=== PATIENT | female | born 1980 | race Caucasian/White ===

== ENCOUNTER 2018-02-28 10:06 | Observation (INO) | payer OTHER ==
[2018-02-28] MEDS ORDERED: IBUPROFEN 600 MG TAB PO STA (10:22)
[2018-02-28] MEDS ORDERED: ACETAMINOPHEN TAB 500 MG TAB PO STA (10:22)
--- NOTE | 2018-02-28 10:22 | ED ---
Extremity Problem HPI - General Chief complaint: Extremity Problem,Nontraumatic Stated complaint: right leg pain Time Seen by Provider: 02/28/18 10:11 Source: patient, RN notes reviewed, old records reviewed Mode of arrival: wheelchair Limitations: no limitations - History of Present Illness Initial comments: Patient is a 37-year-old female presents emergency department today fevers chills and right leg pain. She reports her pain feels similar to when she had cellulitis only before. She reports that she has pain in the groin rating down the entire leg. She reports that she's not had any Motrin or Tylenol or anything for pain relief. Patient states that she does have some mild lower back pain. Patient states that she was told that it is likely comfortable infection over her toes. She denies any new cuts or breaks in the skin. No falls. - Related Data Home Medications Medication Instructions Recorded Confirmed No Known Home Medications 05/29/16 05/30/16 Allergies Allergy/AdvReac Type Severity Reaction Status Date / Time No Known Allergies Allergy Verified 02/28/18 10:10 Review of Systems ROS Statement: Those systems with pertinent positive or pertinent negative responses have been documented in the HPI. ROS Other: All systems not noted in ROS Statement are negative. Past Medical History Past Medical History: Cancer, Skin Disorder Additional Past Medical History / Comment(s): migraines, hoarse voice and diff swallowing-recent choking, dry skin on foot, hx cellulitis, anemia, hx cervical cancer History of Any Multi-Drug Resistant Organisms: None Reported Past Surgical History: Section, Orthopedic Surgery Additional Past Surgical History / Comment(s): LEEP procedure, left knee arthroscopy, oral surgery Past Anesthesia/Blood Transfusion Reactions: Previous Problems w/ Anesthesia Additional Past Anesthesia/Blood Transfusion Reaction / Comment(s): spinal anesthesia for C/S-"stopped breathing/paralyzed lungs" Past Psychological History: No Psychological Hx Reported Smoking Status: Current some day smoker Past Alcohol Use History: None Reported Past Drug Use History: None Reported - Past Family History Father Family Medical History: Diabetes Mellitus, Hypertension Mother Family Medical History: No Reported History General Exam - General Exam Comments Initial Comments: Physical 37-year-old female. Alert and oriented. No acute distress. General: Well appearing, well nourished, in no distress. Oriented x 3, normal mood and affect . Ambulating without difficulty. Skin: Good turgor, no rash, unusual bruising or prominent lesions Hair: Normal texture and distribution. HEENT: Head: Normocephalic, atraumatic, no visible or palpable masses, depressions, or scaring. Eyes: Visual acuity intact, conjunctiva clear, sclera non-icteric, EOM intact, PERRL. Ears: EACs clear, TMs translucent & cone of light visualized. hearing intact. Nose: No external lesions, mucosa non-inflamed, septum and turbinates normal Mouth: Mucous membranes moist, no mucosal lesions. Teeth/Gums: No obvious caries or periodontal disease. No gingival inflammation or significant resorption. Pharynx: Mucosa non-inflamed, no tonsillar hypertrophy or exudate Neck: Supple, without lesions, bruits, or adenopathy, thyroid non-enlarged and non-tender Heart: No cardiomegaly or thrills; regular rate and rhythm, no murmur or gallop Lungs: Clear to auscultation and percussion Abdomen: Bowel sounds normal, no tenderness, organomegaly, masses, or hernia Back: Spine normal without deformity or tenderness, no CVA tenderness Extremities: No amputations or deformities. Patient reports pain over the right lower extremity. Patient is tender over the right hip, but she is tender over the entire leg. Full range of motion noted of the toes ankle and knee. Mild erythema over the lateral aspect of the harper. Pulses are normal bilaterally. Neurovascularly intact. Musculoskeletal: Normal gait and station. No misalignment, asymmetry, crepitation, defects, tenderness, masses, effusions, decreased range of motion, instability, atrophy or abnormal strength or tone in the head, neck, spine, ribs , pelvis or extremities. Neurologic: CN 2-12 normal. Sensation to pain, touch, and proprioception normal. DTRs normal in upper and lower extremities. No pathologic reflexes. Psychiatric: Oriented X3, intact recent and remote memory, judgment and insight , normal mood and affect. Limitations: no limitations Course Vital Signs 02/28/18 02/28/18 10:07 11:44 Temperature 99.2 F Pulse Rate 100 92 Respiratory 24 18 Rate Blood Pressure 126/85 106/56 O2 Sat by Pulse 100 98 Oximetry Medical Decision Making - Medical Decision Making 37-year-old female with history of cellulitis on her right leg. She presents today with severe pain over the right leg. Some mild erythema over the lateral aspect of the calf. Ultrasound was negative for DVT. No strain or falls no trauma. She has full range of motion of the leg which she does report pain. Patient to arrive with a low-grade temperature of 100.0. Her lab work shows an elevated CRP and ESR. White blood cell count is within normal limits. Dr. Munoz , pulse was examined the Patient. At this time I'll put the Patient on Ancef. Admitted for right leg cellulitis over the right calf. With pain control and IV fluids. - Lab Data Result diagrams: 02/28/18 10:42 02/28/18 10:42 Lab Results 02/28/18 02/28/18 02/28/18 Range/Units 10:42 10:42 10:42 WBC 8.7 (3.8-10.6) k/uL RBC 4.32 (3.80-5.40) m/uL Hgb 13.9 (11.4-16.0) gm/dL Hct 40.5 (34.0-46.0) % MCV 93.6 (80.0-100.0) fL MCH 32.2 (25.0-35.0) pg MCHC 34.4 (31.0-37.0) g/dL RDW 13.1 (11.5-15.5) % Plt Count 289 (150-450) k/uL Neutrophils % 86 % Lymphocytes % 7 % Monocytes % 5 % Eosinophils % 0 % Basophils % 0 % Neutrophils # 7.5 (1.3-7.7) k/uL Lymphocytes # 0.6 L (1.0-4.8) k/uL Monocytes # 0.4 (0-1.0) k/uL Eosinophils # 0.0 (0-0.7) k/uL Basophils # 0.0 (0-0.2) k/uL ESR 38 H (0-20) mm/hr PT 9.7 (9.0-12.0) sec INR 1.0 (<1.2) APTT 20.9 L (22.0-30.0) sec Sodium 139 (137-145) mmol/L Potassium 3.5 (3.5-5.1) mmol/L Chloride 105 (98-107) mmol/L Carbon Dioxide 21 L (22-30) mmol/L Anion Gap 13 mmol/L BUN 10 (7-17) mg/dL Creatinine 0.80 (0.52-1.04) mg/dL Est GFR (CKD-EPI)AfAm >90 (>60 ml/min/1.73 sqM) Est GFR (CKD-EPI)NonAf >90 (>60 ml/min/1.73 sqM) Glucose 100 H (74-99) mg/dL Calcium 9.1 (8.4-10.2) mg/dL Total Bilirubin 0.6 (0.2-1.3) mg/dL AST 21 (14-36) U/L ALT 25 (9-52) U/L Alkaline Phosphatase 75 (38-126) U/L C-Reactive Protein 181.4 H (<10.0) mg/L Total Protein 6.8 (6.3-8.2) g/dL Albumin 4.2 (3.5-5.0) g/dL - Radiology Data Radiology results: report reviewed Ultrasound is negative for any DVT. Disposition Clinical Impression: Cellulitis of right leg Disposition: HOME SELF-CARE Condition: Good Is patient prescribed a controlled substance at d/c from ED?: No When asked, does pt state using other controlled substances?: No If prescribed controlled substance>3 days was MAPS reviewed?: No If opioid is for acute pain is fill amount 7 days or less?: No If Rx opioid, was Start Talking consent form obtained?: No Referrals: Duncan Jefferson MD [Primary Care Provider] - 1-2 days Time of Disposition: 13:13
[2018-02-28] MEDS ORDERED: MORPHINE SULFATE 2 MG/ML SYRINGE IVP STA (10:24)
[2018-02-28] MEDS ORDERED: KETOROLAC 30 MG/ML 1 ML VIAL IVP STA (10:24)
[2018-02-28 10:56] LABS: Basophils % (A) 0 %; Eosinophils % (A) 0 %; HCT 40.5 % (34.0-46.0); HGB 13.9 gm/dL (11.4-16.0); Lymphocytes # (A) 0.6 k/uL (1.0-4.8); Lymphocytes % (A) 7 %; MCH 32.2 pg (25.0-35.0); MCHC 34.4 g/dL (31.0-37.0); MCV 93.6 fL (80.0-100.0); Mean Platelet Volume 6.8; Monocytes # (A) 0.4 k/uL (0-1.0); Monocytes % (A) 5 %; Neutrophils # (A) 7.5 k/uL (1.3-7.7); Neutrophils % (A) 86 %; Platelet Count 289 k/uL (150-450); RBC 4.32 m/uL (3.80-5.40); RDW 13.1 % (11.5-15.5); WBC 8.7 k/uL (3.8-10.6)
[2018-02-28] MEDS: SODIUM CHLORIDE 0.9% 500 ML IV SCH ×2 (11:00→11:01)
[2018-02-28 11:06] LABS: Prothrombin Time 9.7 sec (9.0-12.0)
[2018-02-28 11:10] LABS: ALT 25 U/L (9-52); AST 21 U/L (14-36); Albumin 4.2 g/dL (3.5-5.0); Alkaline Phosphatase 75 U/L (38-126); Anion Gap 13 mmol/L; Blood Urea Nitrogen 10 mg/dL (7-17); Calcium 9.1 mg/dL (8.4-10.2); Carbon Dioxide 21 mmol/L (22-30); Chloride 105 mmol/L (98-107); Glucose 100 mg/dL (74-99); Potassium 3.5 mmol/L (3.5-5.1); Sodium 139 mmol/L (137-145); Total Bilirubin 0.6 mg/dL (0.2-1.3); Total Protein 6.8 g/dL (6.3-8.2)
[2018-02-28 11:22] LABS: C Reactive Protein 181.4 mg/L (<10.0)
[2018-02-28 11:29] LABS: Partial Thromboplastin Time 20.9 sec (22.0-30.0)
[2018-02-28 11:52] LABS: Erythrocyte Sedimentation Rate 38 mm/hr (0-20)
--- NOTE | 2018-02-28 11:54 | US ---
EXAMINATION TYPE: US venous doppler duplex LE RT DATE OF EXAM: 02/28/2018 11:35 AM COMPARISON: NONE CLINICAL HISTORY: Pain. SIDE PERFORMED: Right TECHNIQUE: The lower extremity deep venous system is examined utilizing real time linear array sonog halle with graded compression, doppler sonography and color-flow sonography. VESSELS IMAGED: External Iliac Vein (EIV) Common Femoral Vein Deep Femoral Vein Greater Saphenous Vein * Femoral Vein Popliteal Vein Small Saphenous Vein * Proximal Calf Veins (* superficial vessels) Grayscale, color Doppler, spectral Doppler imaging performed of the deep veins of the right lower ext remity. Normal color flow, spectral waveform, compressibility noted of the deep veins of the right lo wer extremity. Right Leg: Negative for DVT IMPRESSION: No evident deep venous arthrosis at or above the right knee
[2018-02-28] MEDS ORDERED: LORazepam 0.5 MG TAB PO PRN (13:13)
[2018-02-28] MEDS ORDERED: IBUPROFEN 400 MG TAB PO PRN (13:13)
[2018-02-28] MEDS ORDERED: ACETAMINOPHEN TAB 325 MG TAB PO PRN (13:13)
[2018-02-28] MEDS ORDERED: ONDANSETRON 4 MG/2 ML VIAL IVP PRN (13:13)
[2018-02-28] MEDS ORDERED: NALOXONE 0.4 MG/ML 1 ML VIAL IV PRN (13:13)
[2018-02-28] MEDS ORDERED: KETOROLAC 30 MG/ML 1 ML VIAL IVP PRN (13:13)
[2018-02-28] MEDS ORDERED: ceFAZolin 2,000 MG in DEXTROSE/WATER 1 50ML.BAG IVPB STA (13:15)
[2018-02-28] MEDS ORDERED: ceFAZolin IN SWFI 2 GM/20 ML SYRINGE IVP ONE (13:30)
[2018-02-28 13:35] LABS: Appearance,Urine Clear (Clear); Bacteria,Urine Rare /hpf; Bilirubin,Urine Negative (Negative); Blood,Urine Small (Negative); Color,Urine Colorless; Glucose,Urine (UA) Negative (Negative); Ketones,Urine 1+ (Negative); Leukocyte Esterase,Urine Negative (Negative); Mucus,Urine Rare /hpf; Nitrite,Urine Negative (Negative); Protein,Urine Negative (Negative); RBC,Urine 2 /hpf (0-5); Specific Gravity,Urine 1.003 (1.001-1.035); Squamous Epithelial Cell,Urine 1 /hpf (0-4); Urobilinogen,Urine <2.0 mg/dL (<2.0); WBC,Urine <1 /hpf (0-5)
[2018-02-28 14:35] VITALS: RESP 16
[2018-02-28 15:41] VITALS: BMI 28.0
[2018-02-28] MEDS: SODIUM CHLORIDE 0.9% 1,000 ML IV SCH (15:54)
[2018-02-28] MEDS: MORPHINE SULFATE 2 MG/ML SYRINGE IV PRN ×2 (15:54→20:17)
--- NOTE | 2018-02-28 16:57 | P.HPIM ---
History of Present Illness Patient was an 37-year-old female came in with compensative for redness in the right leg fever chills has been going on since last . Patient is negative for DVT in the right leg. Patient although redness in the right leg is not significant patient does have significant lymphangitic streaking, never had any history of MRSA in the past. Patient does have interdigital, toe skin breakdown and possible fungal infection which is probably the nidus of her cellulitis. We'll consult infectious disease regarding local wound care for interdigital skin breakdown. Patient will be started on ceftezole and. With the GI prophylaxis and DVT prophylaxis. Patient had fever at home. Review of Systems REVIEW OF SYSTEMS: CONSTITUTIONAL: no malaise, no fatigue. HEENT: No recent visual problems or hearing problems. Denied any sore throat. CARDIOVASCULAR: No chest pain, orthopnea, PND, no palpitations, no syncope. PULMONARY: No shortness of breath, no cough, no hemoptysis. GASTROINTESTINAL: No diarrhea, no nausea, no vomiting, no abdominal pain. Normoactive bowel sounds. NEUROLOGICAL: No headaches, no weakness, no numbness. HEMATOLOGICAL: Denies any bleeding or petechiae. GENITOURINARY: Denies any burning micturition, frequency, or urgency. MUSCULOSKELETAL/RHEUMATOLOGICAL: Denies any joint pain, swelling, or any muscle pain. ENDOCRINE: Denies any polyuria or polydipsia. The rest of the 14-point review of systems is negative. Past Medical History Past Medical History: Cancer, Skin Disorder Additional Past Medical History / Comment(s): migraines, hoarse voice and diff swallowing-recent choking, dry skin on foot, hx cellulitis, anemia, hx cervical cancer History of Any Multi-Drug Resistant Organisms: None Reported Past Surgical History: Section, Orthopedic Surgery Additional Past Surgical History / Comment(s): LEEP procedure, left knee arthroscopy, oral surgery Past Anesthesia/Blood Transfusion Reactions: Previous Problems w/ Anesthesia Additional Past Anesthesia/Blood Transfusion Reaction / Comment(s): spinal anesthesia for C/S-"stopped breathing/paralyzed lungs" Past Psychological History: No Psychological Hx Reported Smoking Status: Current some day smoker Past Alcohol Use History: None Reported Additional Past Alcohol Use History / Comment(s): occ smoking Past Drug Use History: None Reported - Past Family History Father Family Medical History: Diabetes Mellitus, Hypertension Mother Family Medical History: No Reported History Medications and Allergies Home Medications Medication Instructions Recorded Confirmed Type Ibuprofen [Motrin Ib] 200 mg PO Q6H PRN 02/28/18 02/28/18 History Allergies Allergy/AdvReac Type Severity Reaction Status Date / Time No Known Allergies Allergy Verified 02/28/18 13:39 Physical Exam Vitals: Vital Signs Temp Pulse Resp BP Pulse Ox 02/28/18 14:35 98.6 F 88 16 111/59 99 02/28/18 13:27 98.6 F 85 18 112/59 99 02/28/18 11:44 92 18 106/56 98 02/28/18 10:07 99.2 F 100 24 126/85 100 Intake and Output 02/28/18 02/28/18 02/28/18 06:59 14:59 22:59 Other: Weight 63.503 kg 65 kg PHYSICAL EXAMINATION: GENERAL: The patient is alert and oriented x3, not in any acute distress. Well developed, well nourished. HEENT: Pupils are round and equally reacting to light. EOMI. No scleral icterus. No conjunctival pallor. Normocephalic, atraumatic. No pharyngeal erythema. No thyromegaly. CARDIOVASCULAR: S1 and S2 present. No murmurs, rubs, or gallops. PULMONARY: Chest is clear to auscultation, no wheezing or crackles. ABDOMEN: Soft, nontender, nondistended, normoactive bowel sounds. No palpable organomegaly. MUSCULOSKELETAL: No joint swelling or deformity. EXTREMITIES: No cyanosis, clubbing, or pedal edema. NEUROLOGICAL: Gross neurological examination did not reveal any focal deficits. SKIN: As mentioned in HPI Results CBC & Chem 7: 02/28/18 10:42 02/28/18 10:42 Labs: Abnormal Lab Results - Last 24 Hours (Table) 02/28/18 02/28/18 02/28/18 Range/Units 10:42 10:42 10:42 Lymphocytes # 0.6 L (1.0-4.8) k/uL ESR 38 H (0-20) mm/hr APTT 20.9 L (22.0-30.0) sec Carbon Dioxide 21 L (22-30) mmol/L Glucose 100 H (74-99) mg/dL C-Reactive Protein 181.4 H (<10.0) mg/L Urine Ketones (Negative) Urine Blood (Negative) Urine Bacteria (None) /hpf Urine Mucus (None) /hpf 02/28/18 Range/Units 13:04 Lymphocytes # (1.0-4.8) k/uL ESR (0-20) mm/hr APTT (22.0-30.0) sec Carbon Dioxide (22-30) mmol/L Glucose (74-99) mg/dL C-Reactive Protein (<10.0) mg/L Urine Ketones 1+ H (Negative) Urine Blood Small H (Negative) Urine Bacteria Rare H (None) /hpf Urine Mucus Rare H (None) /hpf Thrombosis Risk Factor Assmnt - Choose All That Apply Any of the Below Risk Factors Present?: No Other Risk Factors: No Other congenital or acquired thrombophilia - If yes, enter type in comment: No Thrombosis Risk Factor Assessment Level: Very Low Risk Assessment and Plan Plan: -Cellulitis of the right lower extremity: Most probably streptococcal in nature patient was started on ceftezole and IV fluids will be continued. Repeat CBC tomorrow. -Interdigital fungal infection: Local wound care as per infectious disease -Ruled out DVT -Nicotine abuse: Counseling was provided.
[2018-02-28] MEDS: ceFAZolin 1,000 MG in DEXTROSE/WATER 1 50ML.BAG IVPB SCH ×2 (17:50→23:27)
[2018-02-28] MEDS: Acetaminophen-Codeine 300-30mg TAB PO PRN ×2 (17:54→23:30)
[2018-02-28] MEDS: FAMOTIDINE 20 MG TAB PO SCH (20:18)
[2018-02-28] MEDS ORDERED: diphenhydrAMINE 25 MG CAP PO STA (22:59)
[2018-02-28] MEDS: HEPARIN SODIUM,PORCINE 5,000 UNIT/ML 1 ML VIAL SQ SCH (23:27)
[2018-03-01] MEDS: Acetaminophen-Codeine 300-30mg TAB PO PRN (04:58)
[2018-03-01] MEDS: SODIUM CHLORIDE 0.9% 1,000 ML IV SCH ×2 (05:01→12:21)
[2018-03-01] MEDS: ceFAZolin 1,000 MG in DEXTROSE/WATER 1 50ML.BAG IVPB SCH ×2 (05:28→12:20)
[2018-03-01 05:56] VITALS: BP 92/57; PULSE 80; TEMP 97.9
[2018-03-01 08:12] LABS: HCT 30.9 % (34.0-46.0); MCH 31.6 pg (25.0-35.0); MCHC 32.8 g/dL (31.0-37.0); MCV 96.3 fL (80.0-100.0); Mean Platelet Volume 7.7; Platelet Count 213 k/uL (150-450); RBC 3.21 m/uL (3.80-5.40); RDW 13.2 % (11.5-15.5); WBC 4.6 k/uL (3.8-10.6)
[2018-03-01] MEDS: FAMOTIDINE 20 MG TAB PO SCH (08:12)
[2018-03-01] MEDS: HEPARIN SODIUM,PORCINE 5,000 UNIT/ML 1 ML VIAL SQ SCH (08:12)
[2018-03-01 08:19] LABS: HGB 10.1 gm/dL (11.4-16.0)
[2018-03-01 08:23] LABS: Anion Gap 7 mmol/L; Blood Urea Nitrogen 7 mg/dL (7-17); Carbon Dioxide 23 mmol/L (22-30); Chloride 112 mmol/L (98-107); Glucose 86 mg/dL (74-99); Potassium 3.6 mmol/L (3.5-5.1); Sodium 142 mmol/L (137-145)
[2018-03-01] MEDS ORDERED: PANTOPRAZOLE 40 MG/10 ML VIAL IV SCH (09:00)
--- NOTE | 2018-03-01 11:29 | P.DS ---
Providers Date of admission: 02/28/18 13:30 Attending physician: Lisa Linda Consults: 02/28/18 16:47 Consult Physician Routine Consulting Provider: Austin Coles Reason/Comments: Cellulitis and interdigital (toe) infection Do you want consulting provider notified?: Yes Primary care physician: Li Song Lds Hospital Course: 31-year-old admitted with right lower limb cellulitis. Patient has significant improvement in symptoms on ceftezole and patient will be discharged on Keflex for a week. Awaiting Dr. Coles recommendations regarding interdigital fungal infection of the right leg toes. Once a valid by infectious disease patient will be discharged on Keflex. PHYSICAL EXAMINATION: GENERAL: The patient is alert and oriented x3, not in any acute distress. Well developed, well nourished. HEENT: Pupils are round and equally reacting to light. EOMI. No scleral icterus. No conjunctival pallor. Normocephalic, atraumatic. No pharyngeal erythema. No thyromegaly. CARDIOVASCULAR: S1 and S2 present. No murmurs, rubs, or gallops. PULMONARY: Chest is clear to auscultation, no wheezing or crackles. ABDOMEN: Soft, nontender, nondistended, normoactive bowel sounds. No palpable organomegaly. MUSCULOSKELETAL: No joint swelling or deformity. EXTREMITIES: No cyanosis, clubbing, or pedal edema. NEUROLOGICAL: Gross neurological examination did not reveal any focal deficits. SKIN: Redness in the right leg signify failure improved patient does have interdigital fungal infection. Assessment and Plan Plan: -Cellulitis of the right lower extremity: Most probably streptococcal in nature -Interdigital fungal infection: Local wound care as per infectious disease -Ruled out DVT -Nicotine abuse: Counseling was provided. Patient Condition at Discharge: Good Plan - Discharge Summary New Discharge Prescriptions: New Cephalexin [Keflex] 500 mg PO Q8HR #21 cap No Action Ibuprofen [Motrin Ib] 200 mg PO Q6H PRN PRN Reason: Pain Discharge Medication List Ibuprofen [Motrin Ib] 200 mg PO Q6H PRN 02/28/18 [History] Cephalexin [Keflex] 500 mg PO Q8HR #21 cap 03/01/18 [Rx] Follow up Appointment(s)/Referral(s): Duncan Jefferson MD [Primary Care Provider] - 3 Days Discharge Disposition: HOME SELF-CARE
[2018-03-01] MEDS ORDERED: FLUCONAZOLE 150 MG TAB PO SCH (15:22)
--- NOTE | 2018-03-01 15:28 | P.CONS ---
History of Present Illness - Reason for Consult Consult date: 03/01/18 - History of Present Illness 29-year-old female known to infectious disease service now for her fifth episode of cellulitis the right lower extremity. She relates that the ages 16 she had her first episode. He does continue to have intermittent bouts of this. Is a chronic skin condition thought to be either eczema or psoriasis that then becomes secondarily fungally infected. His this occurs she then develops the significant cellulitis and ascending lymphangitis. At home she had onset of significant pain and swelling to the limb and because of her history she presented to Hospital and was admitted for further intervention. At this time fortunately she started to show improvement already. The case is discussed with with the hospitalist. Patient is currently with much improved symptoms. She is having no high-grade fever chills or rigors. Pain is improved. She believes that she would be able to take oral antibiotic therapy. Review of Systems HEENT:Denies headache or acute visual change. Denies sinus or mouth discomforts. Denies neck stiffness or pain. Denies significant oral cavity pain. Denies difficulty on swallowing. Lungs: Denies significant shortness of breath, cough, sputum production, or hemoptysis. Cardiovascular: Denies significant shortness of breath, chest pain, chest wall pain, orthopnea, dyspnea on exertion, syncope Gastrointestinal:Denies nausea, vomiting, diarrhea, constipation, hematemesis, melena, hematochezia. No no significant change of bowel habit noticed. Musculoskeletal: denies significant myalgias or arthralgias. No new joint swelling. Denies new back pain. Skin: Chronic rash right foot at the lateral surface of the toes Neuro: Denies headache or visual change. Denies any new onset weakness or difficulty with ambulation. Denies falls or seizures. Psychiatric:Denies anxiety or depression. Endocrine: Denies significant fatigue, denies significant weight loss or weight gain. Past Medical History Past Medical History: Cancer, Skin Disorder Additional Past Medical History / Comment(s): migraines, hoarse voice and diff swallowing-recent choking, dry skin on foot, hx cellulitis, anemia, hx cervical cancer History of Any Multi-Drug Resistant Organisms: None Reported Past Surgical History: Section, Orthopedic Surgery Additional Past Surgical History / Comment(s): LEEP procedure, left knee arthroscopy, oral surgery Past Anesthesia/Blood Transfusion Reactions: Previous Problems w/ Anesthesia Additional Past Anesthesia/Blood Transfusion Reaction / Comm: spinal anesthesia for C/S-"stopped breathing/paralyzed lungs" Past Psychological History: No Psychological Hx Reported Additional Psychological History / Comment(s): She has been a smoker on and off for 20 years. She denies any medical marijuana, marijuana, street drug use. She denies any alcohol use. She lives at home with family members and her children. There are no pets in the home. She has had no recent travel. Past Drug Use History: None Reported Smoking Status: Current some day smoker Past Alcohol Use History: None Reported Additional Past Alcohol Use History / Comment(s): occ smoking Past Drug Use History: None Reported - Past Family History Father Family Medical History: Diabetes Mellitus, Hypertension Mother Family Medical History: No Reported History Medications and Allergies Home Medications and Allergies Comment(s): Please see the medication list. Home Medications Medication Instructions Recorded Confirmed Type Ibuprofen [Motrin Ib] 200 mg PO Q6H PRN 02/28/18 02/28/18 History Cephalexin [Keflex] 500 mg PO Q8HR #21 cap 03/01/18 Rx Allergies Allergy/AdvReac Type Severity Reaction Status Date / Time No Known Allergies Allergy Verified 02/28/18 13:39 Physical Exam Vitals: Vital Signs Temp Pulse Resp BP Pulse Ox 03/01/18 05:00 97.9 F 80 16 92/57 93 L 02/28/18 22:33 99 F 76 16 101/66 98 02/28/18 15:35 98.0 F 70 16 98/64 97 Intake and Output 03/01/18 03/01/18 03/01/18 06:59 14:59 22:59 Intake Total 1000 1110 Balance 1000 1110 Intake: Intake, IV Titration 1000 1110 Amount Sodium Chloride 0.9% 1, 900 960 000 ml @ 120 mls/hr IV . Q8H20M ANNEL Rx#:[id number] ceFAZolin 1,000 mg In 100 150 Dextrose/Water 1 50ml.bag @ 100 mls/hr IVPB Q6HR ANNEL Rx#:[id number] Other: Voiding Method Toilet # Voids 2 Pleasant 29-year-old woman who is not in acute distress. HEENT: Anicteric conjunctiva are pink and moist nasal mucosa grossly intact without significant lesions, there is no thrush. Neck: The neck is supple without significant lymphadenopathy or thyromegaly. Lungs: Good bilateral air entry without significant crackles or wheezing. There is no significant bronchial sounds. There is no egophony or dullness. Heart: Regular rate and rhythm with an audible S1-S2, no S3 no S4. There is no significant murmur click or rub, PMI was nondisplaced. Abdomen: Positive bowel sounds soft and nontender without palpable masses or organomegaly. There was no guarding or rebound. Extremities: The upper extremities have excellent pulses they are symmetric, no significant petechiae or telangiectasia. No splinter hemorrhages were noted. The left lower extremity has no evidence of any edema. The right lower extremity has evidence of some minimal edema to the distal aspect of the right foot which is evidence of the significant dryness and fungal process possibly superimposed on the chronic eczema-type condition. There is no expressible purulence. It is minimally tender. There is minimal erythema to the site. There is no ascending lymphangitis. There is no tenderness in the right inguinal area and no lymphadenopathy is noted in the right inguinal area and no other abnormal lymph nodes are noted at this time. Neuro: Awake alert oriented to person place and time. There are no acute new gross focal sensory motor deficits. Results CBC & Chem 7: 03/01/18 08:02 03/01/18 08:02 Labs: Abnormal Lab Results - Last 24 Hours (Table) 03/01/18 03/01/18 Range/Units 08:02 08:02 RBC 3.21 L (3.80-5.40) m/uL Hgb 10.1 L D (11.4-16.0) gm/dL Hct 30.9 L (34.0-46.0) % Chloride 112 H (98-107) mmol/L Calcium 7.0 L (8.4-10.2) mg/dL Microbiology - Last 24 Hours (Table) 02/28/18 10:42 Blood Culture - Preliminary Blood No Growth after 24 hours 02/28/18 13:04 Urine Culture - Preliminary Urine,Clean Catch Laboratory Results WBC 4.6 k/uL (3.8-10.6) 03/01/18 08:02 RBC 3.21 m/uL (3.80-5.40) L 03/01/18 08:02 Hgb 10.1 gm/dL (11.4-16.0) L D 03/01/18 08:02 Hct 30.9 % (34.0-46.0) L 03/01/18 08:02 MCV 96.3 fL (80.0-100.0) 03/01/18 08:02 MCH 31.6 pg (25.0-35.0) 03/01/18 08:02 MCHC 32.8 g/dL (31.0-37.0) 03/01/18 08:02 RDW 13.2 % (11.5-15.5) 03/01/18 08:02 Plt Count 213 k/uL (150-450) 03/01/18 08:02 Neutrophils % 86 % 02/28/18 10:42 Lymphocytes % 7 % 02/28/18 10:42 Monocytes % 5 % 02/28/18 10:42 Eosinophils % 0 % 02/28/18 10:42 Basophils % 0 % 02/28/18 10:42 Neutrophils # 7.5 k/uL (1.3-7.7) 02/28/18 10:42 Lymphocytes # 0.6 k/uL (1.0-4.8) L 02/28/18 10:42 Monocytes # 0.4 k/uL (0-1.0) 02/28/18 10:42 Eosinophils # 0.0 k/uL (0-0.7) 02/28/18 10:42 Basophils # 0.0 k/uL (0-0.2) 02/28/18 10:42 ESR 38 mm/hr (0-20) H 02/28/18 10:42 PT 9.7 sec (9.0-12.0) 02/28/18 10:42 INR 1.0 (<1.2) 02/28/18 10:42 APTT 20.9 sec (22.0-30.0) L 02/28/18 10:42 Sodium 142 mmol/L (137-145) 03/01/18 08:02 Potassium 3.6 mmol/L (3.5-5.1) 03/01/18 08:02 Chloride 112 mmol/L (98-107) H 03/01/18 08:02 Carbon Dioxide 23 mmol/L (22-30) 03/01/18 08:02 Anion Gap 7 mmol/L 03/01/18 08:02 BUN 7 mg/dL (7-17) 03/01/18 08:02 Creatinine 0.74 mg/dL (0.52-1.04) 03/01/18 08:02 Est GFR (CKD-EPI)AfAm >90 (>60 ml/min/1.73 sqM) 03/01/18 08:02 Est GFR (CKD-EPI)NonAf >90 (>60 ml/min/1.73 sqM) 03/01/18 08:02 Glucose 86 mg/dL (74-99) 03/01/18 08:02 Plasma Lactic Acid Félix 1.1 mmol/L (0.7-2.0) 02/28/18 10:42 Calcium 7.0 mg/dL (8.4-10.2) L 03/01/18 08:02 Total Bilirubin 0.6 mg/dL (0.2-1.3) 02/28/18 10:42 AST 21 U/L (14-36) 02/28/18 10:42 ALT 25 U/L (9-52) 02/28/18 10:42 Alkaline Phosphatase 75 U/L (38-126) 02/28/18 10:42 C-Reactive Protein 181.4 mg/L (<10.0) H 02/28/18 10:42 Total Protein 6.8 g/dL (6.3-8.2) 02/28/18 10:42 Albumin 4.2 g/dL (3.5-5.0) 02/28/18 10:42 Urine Color Colorless 02/28/18 13:04 Urine Appearance Clear (Clear) 02/28/18 13:04 Urine pH 6.0 (5.0-8.0) 02/28/18 13:04 Ur Specific [place] 1.003 (1.001-1.035) 02/28/18 13:04 Urine Protein Negative (Negative) 02/28/18 13:04 Urine Glucose (UA) Negative (Negative) 02/28/18 13:04 Urine Ketones 1+ (Negative) H 02/28/18 13:04 Urine Blood Small (Negative) H 02/28/18 13:04 Urine Nitrite Negative (Negative) 02/28/18 13:04 Urine Bilirubin Negative (Negative) 02/28/18 13:04 Urine Urobilinogen <2.0 mg/dL (<2.0) 02/28/18 13:04 Ur Leukocyte Esterase Negative (Negative) 02/28/18 13:04 Urine RBC 2 /hpf (0-5) 02/28/18 13:04 Urine WBC <1 /hpf (0-5) 02/28/18 13:04 Ur Squamous Epith Cells 1 /hpf (0-4) 02/28/18 13:04 Urine Bacteria Rare /hpf (None) H 02/28/18 13:04 Urine Mucus Rare /hpf (None) H 02/28/18 13:04 Microbiology 02/28/18 10:42 Blood Blood Culture - Preliminary No Growth after 24 hours 02/28/18 13:04 Urine,Clean Catch Urine Culture - Preliminary Assessment and Plan (1) Cellulitis of right leg Narrative/Plan: 37-year-old woman who has a history of recurrent cellulitis of right lower extremity possibly in the basis of the chronic skin condition that causes skin breakdown, secondary fungal infection and then the invasive bacterial infection. At this time the episode is quite mild compared to the one from 4 years ago. She is doing well on current antibiotic therapy. He was discharged home on oral Keflex, but also placed on some oral Diflucan for short period of time to more effectively deal with the secondary fungal infection. Topical antifungal can also be applied for some powders from [id number]. His been 4 years since her last episode does appear to have better control of this issue. Hopefully she'll keep the area bit more dry and prevent further secondary infections. Status: Acute Code(s): L03.115 - CELLULITIS OF RIGHT LOWER LIMB SNOMED Code( s): 814226105
== END 2018-03-01 15:00 | disposition home or self-care (01) ==
LOC: EC 10:06 → 5MS5E 13:30
PROVIDERS: ADMIT Internal Medicine; ATTEND Internal Medicine
DX: L03.115 Cellulitis of right lower limb (principal); B35.3 Tinea pedis; M54.5 Low back pain; L98.9 Disorder of the skin and subcutaneous tissue, unspecified; R49.0 Dysphonia; G43.909 Migraine, unspecified, not intractable, without status migrainosus; D64.9 Anemia, unspecified; F17.200 Nicotine dependence, unspecified, uncomplicated; Z85.41 Personal history of malignant neoplasm of cervix uteri; Z83.3 Family history of diabetes mellitus; Z82.49 Family history of ischemic heart disease and other diseases of the circulatory system
CPT/HCPCS: 99285 ×2; 96375 ×5; 96361 ×2; 96376 ×2; 96365; 96372 ×2; 36415; 80053; 80048; 85652; 83605; 85025; 85027; 85610; 85730; 86140; 81001; 87040; 87086; 93971; G0378 ×2; J1644 ×2; J1885 ×2; J2270; J0690 ×3; C9113

== ENCOUNTER 2018-08-15 16:02 | Inpatient (IN) | payer OTHER ==
[2018-08-15] MEDS ORDERED: ACETAMINOPHEN TAB 500 MG TAB PO STA ×2 (16:42→21:42)
[2018-08-15] MEDS ORDERED: HYDROmorphone 1 MG/ML 1 ML SYRINGE IM STA (16:46)
[2018-08-15] MEDS ORDERED: METOCLOPRAMIDE 5 MG/ML 2 ML VIAL IVP STA (16:48)
[2018-08-15 16:55] LABS: Appearance,Urine Clear (Clear); Bilirubin,Urine Negative (Negative); Blood,Urine Moderate (Negative); Color,Urine Yellow; Glucose,Urine (UA) Negative (Negative); Ketones,Urine Negative (Negative); Leukocyte Esterase,Urine Negative (Negative); Mucus,Urine Rare /hpf; Nitrite,Urine Negative (Negative); PH, Urine 6.5 (5.0-8.0); Protein,Urine Negative (Negative); RBC,Urine 32 /hpf (0-5); Specific Gravity,Urine 1.013 (1.001-1.035); Squamous Epithelial Cell,Urine 1 /hpf (0-4); Urobilinogen,Urine <2.0 mg/dL (<2.0); WBC,Urine 1 /hpf (0-5)
[2018-08-15] MEDS: SODIUM CHLORIDE 0.9% 500 ML 500 ML IV SCH ×2 (16:57→17:57)
[2018-08-15 17:38] LABS: Basophils % (A) 0 %; Eosinophils # (A) 0.1 k/uL (0-0.7); Eosinophils % (A) 1 %; HCT 43.9 % (34.0-46.0); HGB 14.3 gm/dL (11.4-16.0); Lymphocytes # (A) 0.2 k/uL (1.0-4.8); Lymphocytes % (A) 2 %; MCH 31.8 pg (25.0-35.0); MCHC 32.6 g/dL (31.0-37.0); MCV 97.4 fL (80.0-100.0); Monocytes # (A) 0.2 k/uL (0-1.0); Monocytes % (A) 2 %; Neutrophils # (A) 12.7 k/uL (1.3-7.7); Neutrophils % (A) 96 %; Platelet Count 268 k/uL (150-450); RBC 4.51 m/uL (3.80-5.40); RDW 13.2 % (11.5-15.5); WBC 13.2 k/uL (3.8-10.6)
[2018-08-15 17:46] LABS: ALT 25 U/L (9-52); AST 30 U/L (14-36); Albumin 4.2 g/dL (3.5-5.0); Alkaline Phosphatase 67 U/L (38-126); Anion Gap 14 mmol/L; Blood Urea Nitrogen 12 mg/dL (7-17); Calcium 9.9 mg/dL (8.4-10.2); Carbon Dioxide 21 mmol/L (22-30); Chloride 106 mmol/L (98-107); Glucose 94 mg/dL (74-99); Potassium 4.2 mmol/L (3.5-5.1); Sodium 141 mmol/L (137-145); Total Bilirubin 0.6 mg/dL (0.2-1.3); Total Protein 7.1 g/dL (6.3-8.2)
--- NOTE | 2018-08-15 17:51 | XR ---
EXAMINATION TYPE: XR chest 2V DATE OF EXAM: 08/15/2018 COMPARISON: 03/17/2014 HISTORY: Chest pain TECHNIQUE: Frontal and lateral views of the chest are obtained. FINDINGS: Heart and mediastinum are normal. Lungs are clear. Diaphragm is normal. Bony thorax appear s normal. There are chest leads. IMPRESSION: Normal chest. No change.
--- NOTE | 2018-08-15 17:51 | ED ---
General Adult HPI - General Chief complaint: Fever Stated complaint: Leg pain Time Seen by Provider: 08/15/18 16:35 Source: patient, RN notes reviewed, old records reviewed Mode of arrival: ambulatory Limitations: no limitations - History of Present Illness Initial comments: Chief complaint and history of present illness is a 38-year-old female presents emergency room with acute onset of painful cellulitis to the right lower extremity. Patient reports this to be the seventh time she's had this happen. She's been admitted in the past and treated on Cefzil. Patient presents with a fever of 101.3. She was given IV fluids sepsis workup started immediately. Review of past admissions finds the patient probable strep secondary to fungal infections which are interdigital to her feet. - Related Data Home Medications Medication Instructions Recorded Confirmed Ibuprofen [Motrin Ib] 200 mg PO Q6H PRN 02/28/18 02/28/18 Previous Rx's Medication Instructions Recorded Cephalexin [Keflex] 500 mg PO Q8HR #21 cap 03/01/18 Fluconazole 200 mg PO DAILY #5 tab 03/01/18 Allergies Allergy/AdvReac Type Severity Reaction Status Date / Time No Known Allergies Allergy Verified 08/15/18 16:08 Review of Systems ROS Statement: Those systems with pertinent positive or pertinent negative responses have been documented in the HPI. Review of systems. The patient has chronic migraine type headaches. Denies any stiff neck. Chest pain or shortness of breath. Has discomfort and patches of redness which are warm tender and hot on her right lower extremity. She reports is typical of the cellulitis episode she's had multiple times in the past. No nausea no vomiting no diarrhea. No neuro deficits. All systems reviewed. Past medical problems significant for cervical cancer, skin disorder in the form of repeated cellulitis mostly starting on her right leg. Thought to be caused by an infection that starts in the web of her feet with chronic skin breakdown and fungal infections. Patient also has chronic migraines. The patient's past surgical history and LEEP procedure. Family history noncontributory. Patient has no ALLERGIES. Continues to smoke encouraged to stop denies alcohol use. ROS Other: All systems not noted in ROS Statement are negative. Past Medical History Past Medical History: Cancer, Skin Disorder Additional Past Medical History / Comment(s): migraines, hoarse voice and diff swallowing-recent choking, dry skin on foot, hx cellulitis, anemia, hx cervical cancer History of Any Multi-Drug Resistant Organisms: None Reported Past Surgical History: Section, Orthopedic Surgery Additional Past Surgical History / Comment(s): LEEP procedure, left knee arthroscopy, oral surgery Past Anesthesia/Blood Transfusion Reactions: Previous Problems w/ Anesthesia Additional Past Anesthesia/Blood Transfusion Reaction / Comment(s): spinal anesthesia for C/S-"stopped breathing/paralyzed lungs" Past Psychological History: No Psychological Hx Reported Smoking Status: Current some day smoker Past Alcohol Use History: None Reported Past Drug Use History: None Reported - Past Family History Father Family Medical History: Diabetes Mellitus, Hypertension Mother Family Medical History: No Reported History General Exam - General Exam Comments Initial Comments: General: The patient is awake and alert, complains of fever that started today with aches and pains to her right lower extremity. Vital signs shows temperature 101.3 pulse 138 over story rate 20 pulse ox on 2 L. Blood pressure 128/81. Eye: Pupils are equal, round and reactive to light, extra-ocular movements are intact ; there is normal conjunctiva bilaterally. No signs of icterus. Ears, nose, mouth and throat: There are moist mucous membranes and no oral lesions. Neck: The neck is supple, there is no tenderness no anterior cervical lymphadenopathy , thyroid not enlarged. Cardiovascular: Tachycardic heart rate, no murmur.. Respiratory: Lungs are clear to auscultation, respirations are non-labored, breath sounds are equal. No wheezes, stridor, rales, or rhonchi. Gastrointestinal: Soft, non-distended, non-tender abdomen without masses or organomegaly noted. There is no rebound or guarding present. No CVA tenderness. Bowel sounds are unremarkable. Back: There is no tenderness to palpation in the midline. There is no obvious deformity. No rashes noted. Musculoskeletal: Interdigital breakdown of skin between the toes on the right foot. Chronic fungal infection. Mild tenderness to the right inguinal area. Patches, palm-sized of tender, hot mildly edematous areas of cellulitis on the dorsal surface of the right foot on the anterior surface of her right lower leg. And complains discomfort in the right groin area. Neurological: No neuro deficits Skin: Cellulitis as described above Psychiatric: Cooperative, Limitations: no limitations Course Vital Signs 08/15/18 08/15/18 16:06 18:00 Temperature 101.3 F H 104.5 F H Pulse Rate 138 H 133 H Respiratory 20 22 Rate Blood Pressure 128/81 112/65 O2 Sat by Pulse 100 97 Oximetry Medical Decision Making - Medical Decision Making Medical decision making; is a 38-year-old female who has had recurrent cellulitic infections in her right leg multiple times with the past several years. The patient was evaluated by infectious disease on a previous admission. She was treated with Cefzil with good results. It appears as though the infection normally starts from interdigital toe infections initially fungal in nature. Today's patient presents with again breakdown of skin between the toes. With areas of hot tender mildly edematous areas of cellulitis around her right leg with right groin discomfort. Fever of 101. Patient was started on IV fluids and IV antibiotics after the patient had her labs and blood cultures drawn. The patient's white count is 13 hemoglobin 14 hematocrit of 42 with potassium 4.2. Urine shows 32 reds. Patient is not complaining of any emergency urgency or dysuria and no flank pain at this time. The patient BUN is 12 creatinine 0.84 the GFR 88. Plasma lactic acid elevated at 4.8. The patient receiving 2 L of IV fluid. She received by mouth Tylenol for fever. Within the hour the patient reports she is feeling better. Again the patient was started on IV antibiotics. Patient's feeling better. Case discussed with Matthew. Patient will be admitted to Dr. Ambrose. With consultation from infectious disease, Dr. Coles. - Lab Data Result diagrams: 08/15/18 16:32 08/15/18 16:32 Lab Results 08/15/18 08/15/18 08/15/18 Range/Units 16:12 16:32 16:32 WBC 13.2 H (3.8-10.6) k/uL RBC 4.51 (3.80-5.40) m/uL Hgb 14.3 (11.4-16.0) gm/dL Hct 43.9 (34.0-46.0) % MCV 97.4 (80.0-100.0) fL MCH 31.8 (25.0-35.0) pg MCHC 32.6 (31.0-37.0) g/dL RDW 13.2 (11.5-15.5) % Plt Count 268 (150-450) k/uL Neutrophils % 96 % Lymphocytes % 2 % Monocytes % 2 % Eosinophils % 1 % Basophils % 0 % Neutrophils # 12.7 H (1.3-7.7) k/uL Lymphocytes # 0.2 L (1.0-4.8) k/uL Monocytes # 0.2 (0-1.0) k/uL Eosinophils # 0.1 (0-0.7) k/uL Basophils # 0.0 (0-0.2) k/uL PT (9.0-12.0) sec INR (<1.2) APTT (22.0-30.0) sec Sodium 141 (137-145) mmol/L Potassium 4.2 (3.5-5.1) mmol/L Chloride 106 (98-107) mmol/L Carbon Dioxide 21 L (22-30) mmol/L Anion Gap 14 mmol/L BUN 12 (7-17) mg/dL Creatinine 0.84 (0.52-1.04) mg/dL Est GFR (CKD-EPI)AfAm >90 (>60 ml/min/1.73 sqM) Est GFR (CKD-EPI)NonAf 88 (>60 ml/min/1.73 sqM) Glucose 94 (74-99) mg/dL Plasma Lactic Acid Félix (0.7-2.0) mmol/L Calcium 9.9 (8.4-10.2) mg/dL Total Bilirubin 0.6 (0.2-1.3) mg/dL AST 30 (14-36) U/L ALT 25 (9-52) U/L Alkaline Phosphatase 67 (38-126) U/L Total Protein 7.1 (6.3-8.2) g/dL Albumin 4.2 (3.5-5.0) g/dL Urine Color Yellow Urine Appearance Clear (Clear) Urine pH 6.5 (5.0-8.0) Ur Specific [place] 1.013 (1.001-1.035) Urine Protein Negative (Negative) Urine Glucose (UA) Negative (Negative) Urine Ketones Negative (Negative) Urine Blood Moderate H (Negative) Urine Nitrite Negative (Negative) Urine Bilirubin Negative (Negative) Urine Urobilinogen <2.0 (<2.0) mg/dL Ur Leukocyte Esterase Negative (Negative) Urine RBC 32 H (0-5) /hpf Urine WBC 1 (0-5) /hpf Ur Squamous Epith Cells 1 (0-4) /hpf Urine Mucus Rare H (None) /hpf 08/15/18 08/15/18 Range/Units 16:32 16:32 WBC (3.8-10.6) k/uL RBC (3.80-5.40) m/uL Hgb (11.4-16.0) gm/dL Hct (34.0-46.0) % MCV (80.0-100.0) fL MCH (25.0-35.0) pg MCHC (31.0-37.0) g/dL RDW (11.5-15.5) % Plt Count (150-450) k/uL Neutrophils % % Lymphocytes % % Monocytes % % Eosinophils % % Basophils % % Neutrophils # (1.3-7.7) k/uL Lymphocytes # (1.0-4.8) k/uL Monocytes # (0-1.0) k/uL Eosinophils # (0-0.7) k/uL Basophils # (0-0.2) k/uL PT 9.7 (9.0-12.0) sec INR 0.9 (<1.2) APTT 19.0 L (22.0-30.0) sec Sodium (137-145) mmol/L Potassium (3.5-5.1) mmol/L Chloride (98-107) mmol/L Carbon Dioxide (22-30) mmol/L Anion Gap mmol/L BUN (7-17) mg/dL Creatinine (0.52-1.04) mg/dL Est GFR (CKD-EPI)AfAm (>60 ml/min/1.73 sqM) Est GFR (CKD-EPI)NonAf (>60 ml/min/1.73 sqM) Glucose (74-99) mg/dL Plasma Lactic Acid Félix 4.8 H* (0.7-2.0) mmol/L Calcium (8.4-10.2) mg/dL Total Bilirubin (0.2-1.3) mg/dL AST (14-36) U/L ALT (9-52) U/L Alkaline Phosphatase (38-126) U/L Total Protein (6.3-8.2) g/dL Albumin (3.5-5.0) g/dL Urine Color Urine Appearance (Clear) Urine pH (5.0-8.0) Ur Specific [place] (1.001-1.035) Urine Protein (Negative) Urine Glucose (UA) (Negative) Urine Ketones (Negative) Urine Blood (Negative) Urine Nitrite (Negative) Urine Bilirubin (Negative) Urine Urobilinogen (<2.0) mg/dL Ur Leukocyte Esterase (Negative) Urine RBC (0-5) /hpf Urine WBC (0-5) /hpf Ur Squamous Epith Cells (0-4) /hpf Urine Mucus (None) /hpf Disposition Clinical Impression: Cellulitis of right leg Disposition: ADMITTED IP TO THIS HOSP Condition: Serious Is patient prescribed a controlled substance at d/c from ED?: No Referrals: Duncan Jefferson MD [Primary Care Provider] - 1-2 days
[2018-08-15 18:03] LABS: INR 0.9 (<1.2); Prothrombin Time 9.7 sec (9.0-12.0)
[2018-08-15] MEDS ORDERED: ceFAZolin IN SWFI 2 GM/20 ML SYRINGE IVP ONE (18:15)
[2018-08-15] MEDS ORDERED: IBUPROFEN 600 MG TAB PO STA (18:22)
[2018-08-15] MEDS ORDERED: NALOXONE 0.4 MG/ML 1 ML VIAL IV PRN (19:12)
[2018-08-15] MEDS: SODIUM CHLORIDE 0.9% 1,000 ML IV SCH (19:35)
[2018-08-15] MEDS ORDERED: VANCOMYCIN IV PER PHARMACY 1 EACH MISC MISCELLANE PRN (19:47)
[2018-08-15] MEDS ORDERED: VANCOMYCIN 1,500 MG in SODIUM CHLORIDE 0.9% 250 ML IVPB STA (20:00)
[2018-08-15] MEDS ORDERED: SODIUM CHLORIDE 0.9% 500 ML IV ONE (20:08)
[2018-08-15] MEDS ORDERED: SODIUM CHLORIDE 0.9% 1,000 ML IV ONE (20:08)
[2018-08-15] MEDS ORDERED: CEFEPIME 2 GM in SODIUM CHLORIDE 0.9% 50 ML IVPB STA (20:54)
[2018-08-15] MEDS ORDERED: ceFAZolin 2,000 MG in DEXTROSE/WATER 1 50ML.BAG IVPB SCH (22:00)
[2018-08-15] MEDS ORDERED: SODIUM CHLORIDE 0.9% 500 ML 500 ML IV ONE (23:39)
[2018-08-16 00:40] LABS: Glucose,Whole Blood 109 mg/dL (75-99)
[2018-08-16 04:51] LABS: Basophils % (A) 0 %; Eosinophils % (A) 0 %; HCT 34.7 % (34.0-46.0); Lymphocytes # (A) 0.1 k/uL (1.0-4.8); Lymphocytes % (A) 1 %; MCH 31.8 pg (25.0-35.0); MCHC 32.2 g/dL (31.0-37.0); MCV 98.9 fL (80.0-100.0); Mean Platelet Volume 6.8; Monocytes # (A) 0.1 k/uL (0-1.0); Monocytes % (A) 1 %; Neutrophils # (A) 11.6 k/uL (1.3-7.7); Neutrophils % (A) 98 %; Platelet Count 256 k/uL (150-450); RBC 3.51 m/uL (3.80-5.40); RDW 13.6 % (11.5-15.5); WBC 11.9 k/uL (3.8-10.6)
[2018-08-16] MEDS ORDERED: SODIUM CHLORIDE 0.9% IVPB SCH (05:00)
[2018-08-16] MEDS ORDERED: CEFEPIME IVPB SCH (05:00)
[2018-08-16 05:05] LABS: ALT 26 U/L (9-52); AST 16 U/L (14-36); Albumin 2.3 g/dL (3.5-5.0); Alkaline Phosphatase 34 U/L (38-126); Anion Gap 3 mmol/L; Blood Urea Nitrogen 12 mg/dL (7-17); Carbon Dioxide 20 mmol/L (22-30); Chloride 116 mmol/L (98-107); Glucose 91 mg/dL (74-99); Potassium 3.9 mmol/L (3.5-5.1); Sodium 139 mmol/L (137-145); Total Bilirubin 0.6 mg/dL (0.2-1.3); Total Protein 4.5 g/dL (6.3-8.2)
[2018-08-16 05:10] VITALS: BMI 28.8
[2018-08-16 05:39] LABS: HGB 11.2 gm/dL (11.4-16.0)
[2018-08-16] MEDS: SODIUM CHLORIDE 0.9% 1,000 ML IV SCH ×3 (05:54→20:08)
--- NOTE | 2018-08-16 06:31 | XR ---
EXAMINATION TYPE: XR chest 1V portable DATE OF EXAM: 08/16/2018 HISTORY: ICU Management. REFERENCE: Previous study dated 08/15/2018. FINDINGS: There is developing bibasilar airspace disease. This may represent atelectasis or pneumonia . The heart is mildly prominent. I could not exclude scant effusions. IMPRESSION: WORSENING APPEARANCE TO THE CHEST WITH BIBASILAR AIRSPACE DISEASE, MILD CARDIOMEGALY AND QUESTIONABLE , SMALL, BILATERAL EFFUSIONS.
[2018-08-16] MEDS ORDERED: Potassium Replacement Protocol 1 EACH MISC MISCELLANE PRN ×2 (07:12→20:20)
[2018-08-16] MEDS ORDERED: VANCOMYCIN 1,250 MG in SODIUM CHLORIDE 0.9% 250 ML IVPB SCH (08:00)
[2018-08-16] MEDS ORDERED: POTASSIUM CHLORIDE ER 20 MEQ TAB.ER PO SCH ×2 (08:00→21:00)
[2018-08-16] MEDS: ACETAMINOPHEN TAB 325 MG TAB PO PRN ×2 (08:42→20:06)
[2018-08-16] MEDS: FLUCONAZOLE 100 MG TAB PO SCH (08:43)
[2018-08-16] MEDS: HEPARIN SODIUM,PORCINE 5,000 UNIT/ML 1 ML VIAL SQ SCH ×2 (08:52→20:50)
[2018-08-16] MEDS: PANTOPRAZOLE 40 MG/10 ML VIAL IV SCH (08:52)
[2018-08-16] MEDS: IBUPROFEN 400 MG TAB PO PRN ×2 (09:41→20:07)
[2018-08-16] MEDS: cefTRIAXone 2,000 MG in SODIUM CHLORIDE 0.9% 100 ML IVPB SCH (10:29)
[2018-08-16] MEDS ORDERED: VANCOMYCIN IV PER PHARMACY 1 EACH MISC MISCELLANE PRN (13:24)
--- NOTE | 2018-08-16 14:32 | P.CNPUL ---
History of Present Illness Consult date: 08/16/18 Reason for consult: other (Acute sepsis) Chief complaint: Right leg swelling and pain History of present illness: This is a 38-year-old female with history of chronic cellulitis involving the right lower extremity. History of sepsis and bacteremia secondary to Streptococcus. pyogenes, history of chronic cellulitis and possible fungal infection of the interdigital area of toes. History of multiple medical problems including migraine cephalgia, cervical cancer, GERD, hoarse voice, and sometimes difficulty swallowing. Patient presented to the ER last night with mostly symptoms of one day history of right lower extremity pain, swelling, tenderness, and fever as high as 101.3. Clearly upon presentation the patient was septic she had elevated lactic acid, she was hypotensive, had leukocytosis, initial lactic acid was 4.8. Patient received 3 L of fluid boluses, finally responded to fluid boluses, did not require placement on norepinephrine. I was made aware of this patient last night, and recommended admission to the ICU. I did recommend vancomycin, initially she was given in addition to vancomycin and cefepime, however I switch her today to a Rocephin after reviewing the previous microbiology on this patient from the last admission. Patient was seen in the past by Dr. Coles, and she had a similar presentation not too long ago. Her last evaluation by Dr. Coles was on 03/01/2018. According to his note, the patient had multiple evaluations in the past for cellulitis involving the right lower extremity. At her initial episode was when she was 16 years old. According to his previous note, the patient had chronic skin condition that causes skin breakdown, and she develops fungal infection, and then she also develops invasive bacterial infection. In the past she has been treated on outpatient basis with Keflex and Diflucan. Review of Systems CONSTITUTIONAL: Fever, fatigue, no weight loss. HEENT: No blurred vision, no dizziness, no sore throat, no difficulty with hearing. CARDIOVASCULAR: No chest pain, orthopnea, PND, no palpitations, no syncope. PULMONARY: No shortness of breath, no cough, no wheezing no chest pain. GASTROINTESTINAL: No nausea no vomiting no abdominal pain no melena no hematemesis NEUROLOGICAL: No headaches, no weakness, no numbness. HEMATOLOGICAL: Denies any bleeding or petechiae. GENITOURINARY: No dysuria and no frequency no urgency no hematuria. MUSCULOSKELETAL/RHEUMATOLOGICAL: Denies any joint pain, swelling, or any muscle pain. ENDOCRINE: Denies any polyuria or polydipsia. Skin: As noted in HPI. Past Medical History Past Medical History: Cancer, Skin Disorder Additional Past Medical History / Comment(s): migraines, hoarse voice and diff swallowing-recent choking, dry skin on foot, hx cellulitis, anemia, hx cervical cancer History of Any Multi-Drug Resistant Organisms: None Reported Past Surgical History: Section, Orthopedic Surgery Additional Past Surgical History / Comment(s): LEEP procedure, left knee arthroscopy, oral surgery Past Anesthesia/Blood Transfusion Reactions: Previous Problems w/ Anesthesia Additional Past Anesthesia/Blood Transfusion Reaction / Comment(s): spinal anesthesia for C/S-"stopped breathing/paralyzed lungs" Past Psychological History: No Psychological Hx Reported Additional Psychological History / Comment(s): She has been a smoker on and off for 20 years. She denies any medical marijuana, marijuana, street drug use. She denies any alcohol use. She lives at home with family members and her children. There are no pets in the home. She has had no recent travel. Past Drug Use History: None Reported Smoking Status: Current some day smoker Past Alcohol Use History: None Reported Additional Past Alcohol Use History / Comment(s): occ smoking Past Drug Use History: None Reported - Past Family History Father Family Medical History: Diabetes Mellitus, Hypertension Mother Family Medical History: No Reported History Medications and Allergies Home Medications Medication Instructions Recorded Confirmed Type No Known Home Medications 08/16/18 08/16/18 History Allergies Allergy/AdvReac Type Severity Reaction Status Date / Time No Known Allergies Allergy Verified 08/16/18 08:58 Physical Exam Vitals: Vital Signs Temp Pulse Resp BP Pulse Ox 08/16/18 11:00 102 H 18 105/63 96 08/16/18 10:00 96 23 105/63 95 08/16/18 09:00 98 14 99/62 98 08/16/18 08:00 99.3 F 96 24 97/62 98 08/16/18 07:00 97 13 95/64 97 08/16/18 06:00 91 14 85/52 98 08/16/18 05:00 91 12 90/54 98 08/16/18 04:00 98.7 F 91 14 92/59 96 08/16/18 03:00 97 17 88/53 96 08/16/18 02:00 98 17 96/61 98 08/16/18 01:00 102 H 15 88/60 97 08/16/18 00:30 98.1 F 14 08/16/18 00:26 99.5 F 103 H 18 96/54 98 08/16/18 00:10 108 H 18 100/53 98 08/16/18 00:00 98.1 F 107 H 27 H 90/69 98 08/15/18 23:41 108 H 18 99/52 98 08/15/18 23:36 99.4 F 107 H 18 99/50 98 08/15/18 23:33 106 H 27 H 145/101 08/15/18 23:31 99.4 F 105 H 18 08/15/18 23:30 105 H 10 L 77/62 98 08/15/18 23:25 106 H 11 L 87/40 18 23:20 108 H 21 72/33 08/15/18 23:15 106 H 10 L 82/50 98 08/15/18 23:10 105 H 8 L 79/45 98 18 23:05 109 H 12 82/40 18 23:00 103 H 12 80/37 98 08/15/18 22:57 100.1 F H 102 H 18 80/37 98 18 22:55 105 H 13 96/46 08/15/18 22:50 107 H 22 89/47 18 22:45 107 H 18 88/47 08/15/18 22:40 107 H 16 92/47 97 08/15/18 22:35 107 H 16 96/50 97 18 22:30 106 H 18 88/45 97 18 22:25 112 H 20 93/48 18 22:20 112 H 17 90/45 18 22:15 112 H 16 95/49 18 22:10 110 H 19 96/50 18 22:05 111 H 22 102/60 08/15/18 22:00 116 H 33 H 88/40 96 08/15/18 21:55 113 H 21 97/49 18 21:50 110 H 18 93/50 12/15/18 21:45 108 H 23 100/44 /15/18 21:40 112 H 25 H 106/41 98 /15/18 21:39 112 H 18 106/41 99 15/18 21:35 116 H 16 99/40 99 15/18 21:30 100.4 F H 112 H 18 101/40 98 15/18 21:25 113 H 20 91/48 98 15/18 21:20 110 H 20 90/48 1518 21:15 112 H 24 91/53 15/18 21:10 115 H 18 86/54 1518 21:05 112 H 16 94/52 15/18 21:00 112 H 17 92/54 18 20:59 99 F 112 H 18 92/54 99 1518 20:55 111 H 12 90/47 18 20:50 112 H 20 112/56 98 08/15/18 20:45 121 H 17 91/57 18 20:40 124 H 22 85/46 98 08/15/18 20:35 117 H 19 87/44 99 08/15/18 20:30 115 H 20 93/46 15/18 20:25 116 H 21 95/46 08/15/18 20:20 123 H 17 93/46 18 20:15 115 H 12 95/44 15/18 20:12 100.8 F H 117 H 18 95/44 99 08/15/18 20:10 116 H 17 100/48 18 20:05 121 H 26 H 81/56 08/15/18 20:00 122 H 19 98/49 99 15/18 19:45 118 H 15 88/44 98 15/18 19:30 126 H 11 L 90/43 15/18 19:29 102.8 F H 128 H 20 90/43 98 15/18 19:15 124 H 7 L 83/46 1518 19:00 135 H 21 102/54 1518 18:45 131 H 13 111/63 15/18 18:30 124 H 12 112/65 1518 18:15 128 H 19 115/52 85 L 12/15/18 18:00 104.5 F H 126 H 17 129/63 97 08/15/18 17:45 124 H 26 H 120/79 08/15/18 17:30 120 H 13 111/72 08/15/18 17:15 120 H 21 118/68 08/15/18 17:00 120 H 12 121/77 08/15/18 16:45 125 H 20 121/77 100 08/15/18 16:30 126 H 17 127/63 08/15/18 16:20 138 H 35 H 08/15/18 16:06 101.3 F H 138 H 20 128/81 100 Intake and Output 08/15/18 08/16/18 08/16/18 22:59 06:59 14:59 Intake Total 5100 600 Output Total 1100 125 200 Balance -1100 4975 400 Intake: IV 5100 500 Sodium Chloride 0.9% 1, 5100 500 000 ml @ 100 mls/hr IV . Q10H ANNEL Rx#:[id number] Oral 100 Output: Urine 1100 125 200 Other: # Voids 0 0 Weight 68.039 kg 67 kg GENERAL: Revealed a 38-year-old female in no distress, very pleasant. HEENT: Pupils are round and equally reacting to light. EOMI. No scleral icterus. No conjunctival pallor. Normocephalic, atraumatic. No pharyngeal erythema. No thyromegaly. CARDIOVASCULAR: S1 and S2 present. No murmurs, rubs, or gallops. PULMONARY: Clear throughout, no crackles or rhonchi or wheezes, no chest wall tenderness. ABDOMEN: Soft, nontender, nondistended, normoactive bowel sounds. No palpable organomegaly. MUSCULOSKELETAL: No joint swelling or deformity. EXTREMITIES: Swelling, erythema, tenderness over the right lower extremity. Palpable distal pulses. NEUROLOGICAL: Gross neurological examination did not reveal any focal deficits. SKIN: Significant breaking of the skin noted in the interdigital area between between the toes. Of the right foot. Psychiatric: Normal mood, affect and mental status examination. Results - Laboratory Findings CBC and BMP: 08/16/18 04:25 08/16/18 04:25 PT/INR, D-dimer PT 9.7 sec (9.0-12.0) 08/15/18 16:32 INR 0.9 (<1.2) 08/15/18 16:32 Abnormal lab findings: Abnormal Labs 08/15/18 08/15/18 08/15/18 16:12 16:32 16:32 WBC 13.2 H RBC Hgb Neutrophils # 12.7 H Lymphocytes # 0.2 L APTT Chloride Carbon Dioxide 21 L POC Glucose (mg/dL) Plasma Lactic Acid Félix Calcium Magnesium Alkaline Phosphatase Total Protein Albumin Urine Blood Moderate H Urine RBC 32 H Urine Mucus Rare H 08/15/18 08/15/18 08/16/18 16:32 16:32 00:38 WBC RBC Hgb Neutrophils # Lymphocytes # APTT 19.0 L Chloride Carbon Dioxide POC Glucose (mg/dL) 109 H Plasma Lactic Acid Félix 4.8 H* Calcium Magnesium Alkaline Phosphatase Total Protein Albumin Urine Blood Urine RBC Urine Mucus 08/16/18 08/16/18 08/16/18 04:25 04:25 04:25 WBC 11.9 H RBC 3.51 L Hgb 11.2 L D Neutrophils # 11.6 H Lymphocytes # 0.1 L APTT Chloride 116 H Carbon Dioxide 20 L POC Glucose (mg/dL) Plasma Lactic Acid Félix Calcium 7.0 L Magnesium 1.3 L Alkaline Phosphatase 34 L Total Protein 4.5 L Albumin 2.3 L Urine Blood Urine RBC Urine Mucus - Diagnostic Findings Chest x-ray: image reviewed (By basilar atelectasis, small tiny pleural effusions noted.) Assessment and Plan Assessment: Impression: 1 acute sepsis secondary to right lower extremity cellulitis, most likely streptococcal in nature, however considering the presentation, patient will be started on vancomycin and Rocephin. Empirically until the final cultures are available. 2 acute bacteremia secondary to Streptococcus.pyogenes group a, the source is the right lower extremity unless for otherwise. 3 acute cellulitis of the right lower extremity 4 interdigital fungal infection, patient was already started on Diflucan, local antifungal's maybe use, however with a fair recommendation to infectious disease on the case. 5 nicotine dependence syndrome, patient was already counseled. 6 history of migraine cephalgia 7 history of GERD. Recommendation: Continue to monitor in the ICU, continue present antibiotics, however looking at previous cultures and previous sensitivities, Rocephin alone could be used hence I will discontinue vancomycin unless felt to be changed again by infectious disease on the case. Patient will be given GI and DVT prophylaxis, we'll continue to follow closely. Continue Diflucan. Will follow. Prognosis is guarded, may consider ordering a venous Doppler on the right lower extremity. If not already done. Time with Patient: Greater than 30
[2018-08-16] MEDS ORDERED: traMADol 50 MG TAB PO STA (14:37)
--- NOTE | 2018-08-16 15:00 | US ---
EXAMINATION TYPE: US venous doppler duplex LE RT DATE OF EXAM: 08/16/2018 2:41 PM COMPARISON: US February 28, 2018 CLINICAL HISTORY: DVT R/O. Right leg pain and swelling x 2 days, patient on blood thinners SIDE PERFORMED: Right TECHNIQUE: The lower extremity deep venous system is examined utilizing real time linear array sonog halle with graded compression, doppler sonography and color-flow sonography. VESSELS IMAGED: External Iliac Vein (EIV) Common Femoral Vein Deep Femoral Vein Greater Saphenous Vein * Femoral Vein Popliteal Vein Small Saphenous Vein * Proximal Calf Veins (* superficial vessels) Compression images not done from EIV through distal femoral vein, patient unable to tolerate transd ucer pressure Right Leg: Visualized portions appear negative for DVT *Right groin: multiple lymph nodes seen with largest measuring 4.1 x 1.3 x 3.9cm. Grayscale, color do ppler, spectral doppler imaging performed of the deep veins of the right lower extremity. There is n ormal flow and vascular waveforms. IMPRESSION: Suboptimal study without convincing evidence of acute DVT. Abnormal right groin lymph no kenneth are noted which are greater than 1 cm on long axis with eccentric cortical thickening, correlate for infection or inflammation. Follow-up ultrasound is advised after medical treatment to document re solution of abnormal adenopathy.
--- NOTE | 2018-08-16 19:35 | HP ---
HISTORY AND PHYSICAL CHIEF COMPLAINTS: Fever and leg pain. HISTORY OF PRESENT ILLNESS: This 38-year-old woman with a past history of migraines, history of section, history of the multiple infections, cellulitis of the leg and also with fungal infection between being followed by Dr. Jefferson in the outpatient setting, previously admitted to [facility] on multiple occasions. Currently the patient is complaining of severe pain in the right leg which is increasing in intensity. Some swelling over the past couple of days, went up to the thigh and the patient became feverish and weak. Patient came to [facility]. Patient found to have hypotension and tachycardia and significant cellulitis of the right leg and patient admitted for further evaluation and treatment. IV fluid bolus was about 3 L given. The patient seen in the ICU. Broad-spectrum IV antibiotics were given. Of note in 2013, grown from the cultures which is again growing from the blood cultures right now and currently. The patient is started on vancomycin and Rocephin at this time. Dr. Stephens, infectious disease following the patient closely. There is no history any headache, loss consciousness, seizures at this time. No chest pain , palpitations, hematochezia or melena. PAST MEDICAL HISTORY: History of fungal infection, skin disorder, migraine, hoarse voice, history of cellulitis and section. MEDICATIONS: Prior to admission home medications are: None. ALLERGIES: None. FAMILY HISTORY: History of diabetes and hypertension in the family. SOCIAL HISTORY: Previous history of smoking on a daily basis. No history of alcohol intake. REVIEW OF SYSTEMS: ENT: No diminished hearing or vision. CARDIOVASCULAR: No angina or palpitations. RESPIRATORY: No cough or hemoptysis. GI: No nausea or vomiting. no dysuria. Nervous system: No numbness or weakness. ALLERGY/IMMUNOLOGY: No asthma or hayfever. MUSCULOSKELETAL: As mentioned earlier. HEMATOLOGY/ONCOLOGY: No history of anemia. ENDOCRINE: No history of diabetes or hypothyroidism. CONSTITUTIONAL: As mentioned earlier. Dermatology: Negative. Rheumatology: Negative. Psychiatry: As mentioned earlier. PHYSICAL EXAMINATION: GENERAL: The patient is alert and oriented times three. VITAL SIGNS: Pulse 96, blood pressure is 105/60, respirations 23, temperature is normal. Pulse ox 94% on room air. HEENT: Conjunctivae normal. Oral mucosa moist. NECK is no jugular venous distention. No carotid bruit. No lymph node enlargement. CARDIOVASCULAR: S1, S2 muffled. RESPIRATORY: Breath sounds diminished in the bases. Scattered rhonchi. No crackles. ABDOMEN: Soft, nontender. No mass. LEGS: Significant swelling and edema, erythema, tenderness of the right leg extending from the ankle all the way up to the thigh. Lymph nodes are not palpable, visible in the ultrasound. There is some erythema also present. Pulses felt normally. Minimal tenderness also present diffusely. CENTRAL NERVOUS SYSTEM: Higher functions as mentioned earlier. Moves all 4 limbs. No focal motor or sensory deficits. LYMPHATICS: No lymph nodes in the neck and axilla. SKIN: No ulcer, rash or bleeding. LABS: WBC 11.2, hemoglobin 11.2. Albumin 2.6. ASSESSMENT: 1. Acute cellulitis of the right leg with severe sepsis and septic shock and hypotension. 2. History of previous multiple sepsis. 3. Fungal infection in the first interdigital cleft. 4. Hypomagnesemia. 5. Increased WBC. 6. History of section. 7. History of recurrent cellulitis on the right side. 8. History of migraine. 9. History of degenerative joint disease. 10.History of nicotine dependence. RECOMMENDATIONS AND DISCUSSION: In this 38-year-old woman who presented with multiple complex medical issues, we will monitor the patient closely. We will initiate broad-spectrum IV antibiotics. The patient is started on Rocephin. Otherwise, the patient also received 1 dose of vancomycin. We will follow closely with Infectious disease as mentioned earlier. The patient has grown step pyogenes group previously. The prognosis guarded because of multiple complex medical issues. Further recommendations to follow. See orders for pain management. Further recommendations to follow. MMODL / IJN: [id number] / MTDD
[2018-08-16] MEDS: CLOTRIMAZOLE 1% CREAM 15 GM TUBE TOPICAL SCH (20:08)
[2018-08-16] MEDS ORDERED: Magnesium Replacement Protocol 1 EACH MISC MISCELLANE PRN (20:22)
[2018-08-16] MEDS: MAGNESIUM SULFATE-D5W PMX 1 GM in DEXTROSE/WATER 1 100ML.BAG IVPB SCH ×3 (20:50→23:27)
[2018-08-16] MEDS: HYDROmorphone 1 MG/ML 1 ML SYRINGE IVP PRN (21:25)
--- NOTE | 2018-08-16 22:03 | P.CONS ---
History of Present Illness - Reason for Consult Consult date: 08/16/18 - Chief Complaint fever - History of Present Illness 38-year-old presents to Hospital with the sudden onset of pain and swelling and discomfort to the right lower extremity. 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 Despite the care she continues to have difficulty does have multiple hospitalizations regarding cellulitis of the right lower extremity. Her last auscultation was much more brief and she was not nearly as ill as she has been in the past. Apparently a few hours before she came to the emergency center she started feeling poorly with evidence of swelling and pain to the right leg. When she started difficulties with ambulation she sought care in the emergency center where she was found to have a temperature of 104, she was with relative hypotension and evidence of acute sepsis. He has in the past she had an extensive cellulitis right lower extremity with an ascending lymphangitis with tenderness to the right inguinal node. She was with relative hypotension requiring fluid resuscitation. With resuscitation and antipyretic she's feeling a bit better today leg is still swollen and quite painful. She has significant lactic acidosis of 4.8 now improved to 1.1. Antibiotic therapy was initiated the cough and emergency center with cefepime and vancomycin pending culture results. Review of Systems Patient still feels quite poorly HEENT:Denies headache or acute visual change. Denies sinus or mouth discomforts. Denies neck stiffness or pain. Denies significant oral cavity pain. Denies difficulty on swallowing. Lungs: Denies significant shortness of breath, cough, sputum production, or hemoptysis. Cardiovascular: Denies significant shortness of breath, chest pain, chest wall pain, orthopnea, dyspnea on exertion, syncope Gastrointestinal:Denies nausea, vomiting, diarrhea, constipation, hematemesis, melena, hematochezia. No no significant change of bowel habit noticed. Musculoskeletal: denies significant myalgias or arthralgias. No new joint swelling. Denies new back pain. Skin: Significant pain swelling redness to the right lower extremity with the chronic changes to the interspaces of the toes of the right foot Neuro: Denies headache or visual change. Denies any new onset weakness or difficulty with ambulation. Denies falls or seizures. Psychiatric:Denies anxiety or depression. Endocrine: Denies significant fatigue, denies significant weight loss or weight gain. Past Medical History Past Medical History: Cancer, Skin Disorder Additional Past Medical History / Comment(s): migraines, hoarse voice and diff swallowing-recent choking, dry skin on foot, hx cellulitis, anemia, hx cervical cancer History of Any Multi-Drug Resistant Organisms: None Reported Past Surgical History: Section, Orthopedic Surgery Additional Past Surgical History / Comment(s): LEEP procedure, left knee arthroscopy, oral surgery Past Anesthesia/Blood Transfusion Reactions: Previous Problems w/ Anesthesia Additional Past Anesthesia/Blood Transfusion Reaction / Comm: spinal anesthesia for C/S-"stopped breathing/paralyzed lungs" Past Psychological History: No Psychological Hx Reported Additional Psychological History / Comment(s): She has been a smoker on and off for 20 years. She denies any medical marijuana, marijuana, street drug use. She denies any alcohol use. She lives at home with family members and her children. There are no pets in the home. She has had no recent travel. Past Drug Use History: None Reported Smoking Status: Current some day smoker Past Alcohol Use History: None Reported Additional Past Alcohol Use History / Comment(s): occ smoking Past Drug Use History: None Reported - Past Family History Father Family Medical History: Diabetes Mellitus, Hypertension Mother Family Medical History: No Reported History Medications and Allergies Home Medications and Allergies Comment(s): Current Medications Acetaminophen (Tylenol Tab) 650 mg PO Q6HR PRN PRN Reason: Mild Pain or Fever > 100.5 Last Admin: 08/16/18 20:06 Dose: 650 mg Clotrimazole (Lotrimin Cream) 1 applic TOPICAL BID ANNEL Last Admin: 08/16/18 20:08 Dose: 1 applic Fluconazole (Diflucan) 200 mg PO DAILY [facility]EL Last Admin: 08/16/18 08:43 Dose: 200 mg Heparin Sodium (Porcine) (Heparin) 5,000 unit SQ Q12HR [facility] Last Admin: 08/16/18 20:50 Dose: 5,000 unit Hydromorphone HCl (Dilaudid) 0.5 mg IVP Q4HR PRN PRN Reason: Pain Last Admin: 08/16/18 21:25 Dose: 0.5 mg Sodium Chloride (Saline 0.9%) 1,000 mls @ 100 mls/hr IV .Q10H [facility]EL Last Admin: 08/16/18 20:08 Dose: 100 mls/hr Ceftriaxone Sodium 2,000 mg/ (Sodium Chloride) 100 mls @ 100 mls/hr IVPB Q24HR [facility] Last Admin: 08/16/18 10:29 Dose: 100 mls/hr Magnesium Sulfate/Dextrose 1 (gm/ IV Solution) 100 mls @ 100 mls/hr IVPB Q1H [facility] Stop: 08/17/18 00:29 Last Admin: 08/16/18 20:50 Dose: 100 mls/hr Ibuprofen (Motrin) 400 mg PO Q6HR PRN PRN Reason: Mild Pain or Fever > 100.5 Last Admin: 08/16/18 20:07 Dose: 400 mg Miscellaneous Information (Potassium Per Protocol) 1 each MISCELLANE DAILY PRN ; Protocol PRN Reason: Per Protocol Miscellaneous Information (Potassium Per Protocol) 1 each MISCELLANE DAILY PRN ; Protocol PRN Reason: Per Protocol Miscellaneous Information (Magnesium Per Protocol) 1 each MISCELLANE DAILY PRN ; Protocol PRN Reason: Per Protocol Naloxone HCl (Narcan) 0.2 mg IV Q2M PRN PRN Reason: Opioid Reversal Pantoprazole Sodium (Protonix) 40 mg IV DAILY [facility] Last Admin: 08/16/18 08:52 Dose: 40 mg Tramadol HCl (Ultram) 50 mg PO QID PRN PRN Reason: MODERATE Pain Home Medications Medication Instructions Recorded Confirmed Type No Known Home Medications 08/16/18 08/16/18 History Allergies Allergy/AdvReac Type Severity Reaction Status Date / Time No Known Allergies Allergy Verified 08/16/18 08:58 Physical Exam Vitals: Vital Signs Temp Pulse Resp BP Pulse Ox 08/16/18 19:00 105 H 25 H 115/65 98 08/16/18 18:00 98 4 L 117/64 92 L 08/16/18 17:00 96 22 114/61 94 L 08/16/18 16:00 90 12 114/65 97 08/16/18 15:00 93 28 H 112/67 97 08/16/18 14:00 96 24 104/61 96 08/16/18 13:00 96 23 109/64 95 08/16/18 12:00 93 20 113/60 93 L 08/16/18 11:00 102 H 18 105/63 96 08/16/18 10:00 96 23 105/63 95 08/16/18 09:00 98 14 99/62 98 08/16/18 08:00 99.3 F 96 24 97/62 98 08/16/18 07:00 97 13 95/64 97 18 06:00 91 14 85/52 98 08/16/18 05:00 91 12 90/54 98 08/16/18 04:00 98.7 F 91 14 92/59 96 08/16/18 03:00 97 17 88/53 96 08/16/18 02:00 98 17 96/61 98 08/16/18 01:00 102 H 15 88/60 97 08/16/18 00:30 98.1 F 14 08/16/18 00:26 99.5 F 103 H 18 96/54 98 08/16/18 00:10 108 H 18 100/53 98 08/16/18 00:00 98.1 F 107 H 27 H 90/69 98 08/15/18 23:41 108 H 18 99/52 98 08/15/18 23:36 99.4 F 107 H 18 99/50 98 08/15/18 23:33 106 H 27 H 145/101 08/15/18 23:31 99.4 F 105 H 18 08/15/18 23:30 105 H 10 L 77/62 98 08/15/18 23:25 106 H 11 L 87/40 18 23:20 108 H 21 72/33 18 23:15 106 H 10 L 82/50 98 08/15/18 23:10 105 H 8 L 79/45 98 08/15/18 23:05 109 H 12 82/40 18 23:00 103 H 12 80/37 98 08/15/18 22:57 100.1 F H 102 H 18 80/37 98 08/15/18 22:55 105 H 13 96/46 08/15/18 22:50 107 H 22 89/47 18 22:45 107 H 18 88/47 18 22:40 107 H 16 92/47 97 08/15/18 22:35 107 H 16 96/50 97 08/15/18 22:30 106 H 18 88/45 97 08/15/18 22:25 112 H 20 93/48 08/15/18 22:20 112 H 17 90/45 08/15/18 22:15 112 H 16 95/49 08/15/18 22:10 110 H 19 96/50 08/15/18 22:05 111 H 22 102/60 08/15/18 22:00 116 H 33 H 88/40 96 08/15/18 21:55 113 H 21 97/49 08/15/18 21:50 110 H 18 93/50 Intake and Output 08/16/18 08/16/18 08/16/18 06:59 14:59 22:59 Intake Total 5100 1250 500 Output Total 125 700 100 Balance 4975 550 400 Intake: IV 5100 800 500 Sodium Chloride 0.9% 1, 5100 800 500 000 ml @ 100 mls/hr IV . Q10H [facility] Rx#:[id number] Intake, IV Titration 350 Amount Vancomycin 1,250 mg In 250 Sodium Chloride 0.9% 250 ml @ 125 mls/hr IVPB Q12H [facility] Rx#:[id number] cefTRIAXone 2,000 mg In 100 Sodium Chloride 0.9% 100 ml @ 100 mls/hr IVPB Q24HR [facility] Rx#:[id number] Oral 100 Output: Urine 125 700 100 Other: # Voids 0 0 1 # Bowel Movements 1 Weight 67 kg Pleasant 38-year-old woman still very uncomfortable due to the pain and swelling of her right leg. Fever has resolved hypotension improved HEENT: Anicteric conjunctiva are pink and moist nasal mucosa grossly intact without significant lesions, there is no thrush. Neck: The neck is supple without significant lymphadenopathy or thyromegaly. Lungs: Good bilateral air entry without significant crackles or wheezing. There is no significant bronchial sounds. There is no egophony or dullness. Heart: Regular rate and rhythm with an audible S1-S2, no S3 no S4. There is no significant murmur click or rub, PMI was nondisplaced. Abdomen: Positive bowel sounds soft and nontender without palpable masses or organomegaly. There was no guarding or rebound. Extremities: The upper extremities have excellent pulses they are symmetric, no significant petechiae or telangiectasia. No splinter hemorrhages were noted. The left lower extremity shows no acute abnormalities or significant edema. Right lower extremities shows evidence of the extensive erythema and edema that goes from the foot all the way to the fold of the thigh. There is swelling in significant discomfort to the right inguinal lymph nodes. No open ulcerations or blisters are seen just a dense erythema that is quite tender. The interspaces show evidence of the thickened white material but does appear to be fungal in nature. Neuro: Awake alert oriented to person place and time. There are no acute new gross focal sensory motor deficits. Results Results: Laboratory Results WBC 11.9 k/uL (3.8-10.6) H 08/16/18 04:25 RBC 3.51 m/uL (3.80-5.40) L 08/16/18 04:25 Hgb 11.2 gm/dL (11.4-16.0) L D 08/16/18 04:25 Hct 34.7 % (34.0-46.0) 08/16/18 04:25 MCV 98.9 fL (80.0-100.0) 08/16/18 04:25 MCH 31.8 pg (25.0-35.0) 08/16/18 04:25 MCHC 32.2 g/dL (31.0-37.0) 08/16/18 04:25 RDW 13.6 % (11.5-15.5) 08/16/18 04:25 Plt Count 256 k/uL (150-450) 08/16/18 04:25 Neutrophils % 98 % 08/16/18 04:25 Lymphocytes % 1 % 08/16/18 04:25 Monocytes % 1 % 08/16/18 04:25 Eosinophils % 0 % 08/16/18 04:25 Basophils % 0 % 08/16/18 04:25 Neutrophils # 11.6 k/uL (1.3-7.7) H 08/16/18 04:25 Lymphocytes # 0.1 k/uL (1.0-4.8) L 08/16/18 04:25 Monocytes # 0.1 k/uL (0-1.0) 08/16/18 04:25 Eosinophils # 0.0 k/uL (0-0.7) 08/16/18 04:25 Basophils # 0.0 k/uL (0-0.2) 08/16/18 04:25 PT 9.7 sec (9.0-12.0) 08/15/18 16:32 INR 0.9 (<1.2) 08/15/18 16:32 APTT 19.0 sec (22.0-30.0) L 08/15/18 16:32 Sodium 139 mmol/L (137-145) 08/16/18 04:25 Potassium 3.9 mmol/L (3.5-5.1) 08/16/18 04:25 Chloride 116 mmol/L (98-107) H 08/16/18 04:25 Carbon Dioxide 20 mmol/L (22-30) L 08/16/18 04:25 Anion Gap 3 mmol/L 08/16/18 04:25 BUN 12 mg/dL (7-17) 08/16/18 04:25 Creatinine 0.73 mg/dL (0.52-1.04) 08/16/18 04:25 Est GFR (CKD-EPI)AfAm >90 (>60 ml/min/1.73 sqM) 08/16/18 04:25 Est GFR (CKD-EPI)NonAf >90 (>60 ml/min/1.73 sqM) 08/16/18 04:25 Glucose 91 mg/dL (74-99) 08/16/18 04:25 POC Glucose (mg/dL) 109 mg/dL (75-99) H 08/16/18 00:38 POC Glu [employer] Worker ID Dale Tellez 08/16/18 00:38 Lactic Ac Sepsis Rflx Y 08/15/18 17:49 Plasma Lactic Acid Félix 1.1 mmol/L (0.7-2.0) 08/15/18 21:35 Calcium 7.0 mg/dL (8.4-10.2) L 08/16/18 04:25 Magnesium 1.3 mg/dL (1.6-2.3) L 08/16/18 04:25 Total Bilirubin 0.6 mg/dL (0.2-1.3) 08/16/18 04:25 AST 16 U/L (14-36) 08/16/18 04:25 ALT 26 U/L (9-52) 08/16/18 04:25 Alkaline Phosphatase 34 U/L (38-126) L 08/16/18 04:25 Total Protein 4.5 g/dL (6.3-8.2) L 08/16/18 04:25 Albumin 2.3 g/dL (3.5-5.0) L 08/16/18 04:25 Urine Color Yellow 08/15/18 16:12 Urine Appearance Clear (Clear) 08/15/18 16:12 Urine pH 6.5 (5.0-8.0) 08/15/18 16:12 Ur Specific [place] 1.013 (1.001-1.035) 08/15/18 16:12 Urine Protein Negative (Negative) 08/15/18 16:12 Urine Glucose (UA) Negative (Negative) 08/15/18 16:12 Urine Ketones Negative (Negative) 08/15/18 16:12 Urine Blood Moderate (Negative) H 08/15/18 16:12 Urine Nitrite Negative (Negative) 08/15/18 16:12 Urine Bilirubin Negative (Negative) 08/15/18 16:12 Urine Urobilinogen <2.0 mg/dL (<2.0) 08/15/18 16:12 Ur Leukocyte Esterase Negative (Negative) 08/15/18 16:12 Urine RBC 32 /hpf (0-5) H 08/15/18 16:12 Urine WBC 1 /hpf (0-5) 08/15/18 16:12 Ur Squamous Epith Cells 1 /hpf (0-4) 08/15/18 16:12 Urine Mucus Rare /hpf (None) H 08/15/18 16:12 CBC & Chem 7: 08/16/18 04:25 08/16/18 04:25 Labs: Abnormal Lab Results - Last 24 Hours (Table) 08/16/18 08/16/18 08/16/18 Range/Units 00:38 04:25 04:25 WBC 11.9 H (3.8-10.6) k/uL RBC 3.51 L (3.80-5.40) m/uL Hgb 11.2 L D (11.4-16.0) gm/dL Neutrophils # 11.6 H (1.3-7.7) k/uL Lymphocytes # 0.1 L (1.0-4.8) k/uL Chloride 116 H (98-107) mmol/L Carbon Dioxide 20 L (22-30) mmol/L POC Glucose (mg/dL) 109 H (75-99) mg/dL Calcium 7.0 L (8.4-10.2) mg/dL Magnesium (1.6-2.3) mg/dL Alkaline Phosphatase 34 L (38-126) U/L Total Protein 4.5 L (6.3-8.2) g/dL Albumin 2.3 L (3.5-5.0) g/dL 08/16/18 Range/Units 04:25 WBC (3.8-10.6) k/uL RBC (3.80-5.40) m/uL Hgb (11.4-16.0) gm/dL Neutrophils # (1.3-7.7) k/uL Lymphocytes # (1.0-4.8) k/uL Chloride (98-107) mmol/L Carbon Dioxide (22-30) mmol/L POC Glucose (mg/dL) (75-99) mg/dL Calcium (8.4-10.2) mg/dL Magnesium 1.3 L (1.6-2.3) mg/dL Alkaline Phosphatase (38-126) U/L Total Protein (6.3-8.2) g/dL Albumin (3.5-5.0) g/dL Microbiology - Last 24 Hours (Table) 08/15/18 16:12 Urine Culture - Final Urine,Clean Catch 08/15/18 16:32 Blood Culture Gram Stain - Preliminary Blood 08/15/18 16:32 Blood Culture Gram Stain - Preliminary Blood Blood Culture - Preliminary Strep pyogenes (grp a) 08/15/18 16:32 Blood Culture - Final Blood Microbiology 08/15/18 16:12 Urine,Clean Catch Urine Culture - Final 08/15/18 16:32 Blood Blood Culture Gram Stain - Preliminary 08/15/18 16:32 Blood Blood Culture Gram Stain - Preliminary 08/15/18 16:32 Blood Blood Culture - Preliminary Strep pyogenes (grp a) 08/15/18 16:32 Blood Blood Culture - Final Assessment and Plan (1) Cellulitis of right leg Narrative/Plan: 38-year-old woman presents to Hospital feeling acutely ill with high-grade fever chills and rigors associated with the significant pain and swelling to the right lower extremity. No new acute lesions or injuries of occurred but she has the chronic abnormality to the skin and interspaces of her toes which appears to be the portal of entry. She is evidence of significant streptococcal sepsis coming from that site with the cellulitis ascending lymphangitis and lymphadenopathy. She has severe sepsis as noted by the elevated lactic acid, and the significant infection to the right leg and bacteremia. Antimicrobial therapy will be tailored as we have further data, she originally had streptococcal infection in the past. We'll de-escalate antibiotic therapy as soon as possible. Follow blood cultures will be requested. She is having relative hypotension and will add in tramadol for some pain control with Tylenol. Elevate the limb while at rest. Topical antifungal therapy will be utilized to the interspace and systemic fluconazole his early been added. Should have further evaluation in the outpatient setting regarding the abnormality to the foot. Current Visit: Yes Status: Acute Code(s): L03.115 - CELLULITIS OF RIGHT LOWER LIMB SNOMED Code(s): 779756301 (2) Acute lymphangitis of right lower extremity Current Visit: Yes Status: Acute Code(s): L03.125 - ACUTE LYMPHANGITIS OF RIGHT LOWER LIMB SNOMED Code(s): 0370461 (3) Sepsis due to Streptococcus pyogenes Current Visit: Yes Status: Acute Code(s): A40.0 - SEPSIS DUE TO STREPTOCOCCUS, GROUP A SNOMED Code(s): 856267400
[2018-08-17] MEDS: MAGNESIUM SULFATE-D5W PMX 1 GM in DEXTROSE/WATER 1 100ML.BAG IVPB SCH (00:33)
[2018-08-17 05:54] LABS: Basophils % (A) 0 %; Eosinophils # (A) 0.1 k/uL (0-0.7); Eosinophils % (A) 1 %; HGB 10.6 gm/dL (11.4-16.0); Lymphocytes # (A) 0.2 k/uL (1.0-4.8); Lymphocytes % (A) 2 %; MCH 32.1 pg (25.0-35.0); MCHC 32.1 g/dL (31.0-37.0); MCV 99.9 fL (80.0-100.0); Mean Platelet Volume 6.5; Monocytes # (A) 0.2 k/uL (0-1.0); Monocytes % (A) 2 %; Neutrophils # (A) 9.7 k/uL (1.3-7.7); Neutrophils % (A) 95 %; Platelet Count 192 k/uL (150-450); RDW 13.7 % (11.5-15.5); WBC 10.3 k/uL (3.8-10.6)
[2018-08-17] MEDS: ACETAMINOPHEN TAB 325 MG TAB PO PRN ×2 (06:07→22:22)
[2018-08-17] MEDS: IBUPROFEN 400 MG TAB PO PRN ×2 (06:08→22:23)
[2018-08-17 06:21] LABS: Anion Gap 4 mmol/L; Blood Urea Nitrogen 13 mg/dL (7-17); Calcium 6.9 mg/dL (8.4-10.2); Carbon Dioxide 18 mmol/L (22-30); Chloride 114 mmol/L (98-107); Glucose 90 mg/dL (74-99); Magnesium 2.8 mg/dL (1.6-2.3); Potassium 3.8 mmol/L (3.5-5.1); Sodium 136 mmol/L (137-145)
[2018-08-17] MEDS ORDERED: Potassium Replacement Protocol 1 EACH MISC MISCELLANE PRN (06:46)
[2018-08-17] MEDS ORDERED: POTASSIUM CHLORIDE ER 20 MEQ TAB.ER PO SCH (07:00)
[2018-08-17] MEDS: traMADol 50 MG TAB PO PRN ×2 (07:09→18:25)
[2018-08-17] MEDS: CLOTRIMAZOLE 1% CREAM 15 GM TUBE TOPICAL SCH ×2 (08:47→22:29)
[2018-08-17] MEDS: HEPARIN SODIUM,PORCINE 5,000 UNIT/ML 1 ML VIAL SQ SCH ×2 (08:47→22:23)
[2018-08-17] MEDS: PANTOPRAZOLE 40 MG/10 ML VIAL IV SCH (08:48)
[2018-08-17] MEDS: HYDROmorphone 1 MG/ML 1 ML SYRINGE IVP PRN (08:48)
[2018-08-17] MEDS: FLUCONAZOLE 100 MG TAB PO SCH (08:49)
[2018-08-17] MEDS ORDERED: FUROSEMIDE 10 MG/ML 4 ML VIAL IV STA (09:03)
--- NOTE | 2018-08-17 09:19 | XR ---
EXAMINATION TYPE: XR chest 1V portable DATE OF EXAM: 08/17/2018 COMPARISON: 08/06/2018 HISTORY: Shortness of breath TECHNIQUE: Single frontal view of the chest is obtained. FINDINGS: Bilateral consolidation and pleural effusion. Heart size stable. Central interstitial isaiah meagan noted. No sizable pneumothorax. IMPRESSION: 1. Progressive bilateral consolidation and pleural effusion. Differential diagnosis includes pneumoni a correlate clinically to exclude underlying CHF.
[2018-08-17] MEDS: cefTRIAXone 2,000 MG in SODIUM CHLORIDE 0.9% 100 ML IVPB SCH (09:51)
--- NOTE | 2018-08-17 10:18 | P.PN ---
Subjective Progress Note Date: 08/17/18 Principal diagnosis: Acute sepsis secondary to right lower extremity cellulitis, with strep a bacteremia This is a 38-year-old female with history of chronic cellulitis involving the right lower extremity. History of sepsis and bacteremia secondary to Streptococcus. pyogenes, history of chronic cellulitis and possible fungal infection of the interdigital area of toes. History of multiple medical problems including migraine cephalgia, cervical cancer, GERD, hoarse voice, and sometimes difficulty swallowing. Patient presented to the ER last night with mostly symptoms of one day history of right lower extremity pain, swelling, tenderness, and fever as high as 101.3. Clearly upon presentation the patient was septic she had elevated lactic acid, she was hypotensive, had leukocytosis, initial lactic acid was 4.8. Patient received 3 L of fluid boluses, finally responded to fluid boluses, did not require placement on norepinephrine. I was made aware of this patient last night, and recommended admission to the ICU. I did recommend vancomycin, initially she was given in addition to vancomycin and cefepime, however I switch her today to a Rocephin after reviewing the previous microbiology on this patient from the last admission. Patient was seen in the past by Dr. Coles, and she had a similar presentation not too long ago. Her last evaluation by Dr. Coles was on 03/01/2018. According to his note, the patient had multiple evaluations in the past for cellulitis involving the right lower extremity. At her initial episode was when she was 16 years old. According to his previous note, the patient had chronic skin condition that causes skin breakdown, and she develops fungal infection, and then she also develops invasive bacterial infection. In the past she has been treated on outpatient basis with Keflex and Diflucan. On 08/17/2018 patient seen in follow-up in the intensive care unit. She is awake and alert, in no acute distress, right lower leg is still quite swollen, tender to touch and warm. Patient is hemodynamically stable, T-max in the last 24 hours was 102.7F. Saturations on 3 L per nasal cannula is 96%, sinus rhythm on the monitor, the controlled rate. Blood cultures showed strep pyogenes in the blood cultures. Patient is currently on a combination of Rocephin and vancomycin. Dopplers of the right lower extremity was negative, and the study was suboptimal he did not show any convincing evidence of acute DVT. There were abnormal right groin lymph nodes noted greater than 1 cm, could be related to infection or inflammation. Today's chest x-ray was reviewed , and shows is consistent with fluid overload, pleural effusions and central vascular congestion. Today's labs have been reviewed, WBCs 10.3, hemoglobin is 10.6, sodium is 136, potassium is 3.8, chloride is 114, CO2 is 18, and BUN was 13 and creatinine 0.73. Objective - Vital Signs Vital signs: Vital Signs Temp 98.8 F 08/17/18 08:00 Pulse 98 08/17/18 08:00 Resp 27 H 08/17/18 08:00 BP 108/57 08/17/18 08:00 Pulse Ox 96 08/17/18 08:00 Intake & Output 08/16/18 08/17/18 08/17/18 18:59 06:59 18:59 Intake Total 1650 1500 100 Output Total 800 660 Balance 850 840 100 Weight 76 kg Intake: IV 1200 1200 100 Sodium Chloride 0.9% 1, 1200 1200 100 000 ml @ 100 mls/hr IV . Q10H [facility] Rx#:[id number] Intake, IV Titration 350 300 Amount Magnesium Sulfate-D5w Pmx 300 1 gm In Dextrose/Water 1 100ml.bag @ 100 mls/hr IVPB Q1H [facility] Rx#: [id number] Vancomycin 1,250 mg In 250 Sodium Chloride 0.9% 250 ml @ 125 mls/hr IVPB Q12H [facility] Rx#:[id number] cefTRIAXone 2,000 mg In 100 Sodium Chloride 0.9% 100 ml @ 100 mls/hr IVPB Q24HR [facility] Rx#:[id number] Oral 100 Output: Urine 800 660 Other: # Voids 1 # Bowel Movements 1 1 - Exam GENERAL: Revealed a 38-year-old female in no distress, very pleasant. HEENT: Pupils are round and equally reacting to light. EOMI. No scleral icterus. No conjunctival pallor. Normocephalic, atraumatic. No pharyngeal erythema. No thyromegaly. CARDIOVASCULAR: S1 and S2 present. No murmurs, rubs, or gallops. PULMONARY: Clear throughout, no crackles or rhonchi or wheezes, no chest wall tenderness. ABDOMEN: Soft, nontender, nondistended, normoactive bowel sounds. No palpable organomegaly. MUSCULOSKELETAL: No joint swelling or deformity. EXTREMITIES: Swelling, erythema, tenderness over the right lower extremity extending from the groin area down to the ankle top of foot. Palpable distal pulses. Patient has nonpitting swelling of the left upper extremity due to IV fluid infiltration NEUROLOGICAL: Gross neurological examination did not reveal any focal deficits. SKIN: Significant breaking of the skin noted in the interdigital area between between the toes. Of the right foot. Psychiatric: Normal mood, affect and mental status examination. - Labs CBC & Chem 7: 08/17/18 04:56 08/17/18 04:56 Labs: Abnormal Lab Results - Last 24 Hours (Table) 08/17/18 08/17/18 Range/Units 04:56 04:56 RBC 3.30 L (3.80-5.40) m/uL Hgb 10.6 L (11.4-16.0) gm/dL Hct 33.0 L (34.0-46.0) % Neutrophils # 9.7 H (1.3-7.7) k/uL Lymphocytes # 0.2 L (1.0-4.8) k/uL Sodium 136 L (137-145) mmol/L Chloride 114 H (98-107) mmol/L Carbon Dioxide 18 L (22-30) mmol/L Calcium 6.9 L (8.4-10.2) mg/dL Magnesium 2.8 H (1.6-2.3) mg/dL Microbiology - Last 24 Hours (Table) 08/15/18 16:32 Blood Culture Gram Stain - Preliminary Blood 08/16/18 19:00 Skin Fungal Culture - Preliminary Skin Scrapings 08/15/18 16:12 Urine Culture - Final Urine,Clean Catch 08/15/18 16:32 Blood Culture Gram Stain - Preliminary Blood Blood Culture - Preliminary Strep pyogenes (grp a) 08/15/18 16:32 Blood Culture - Final Blood Assessment and Plan Plan: 1 acute sepsis secondary to right lower extremity cellulitis, most likely streptococcal in nature, however considering the presentation, patient will be started on vancomycin and Rocephin. Empirically until the final cultures are available. 2 acute bacteremia secondary to Streptococcus.pyogenes group a, the source is the right lower extremity unless for otherwise. 3 acute cellulitis of the right lower extremity 4 interdigital fungal infection, patient was already started on Diflucan, local antifungal's maybe use, however with a fair recommendation to infectious disease on the case. 5 nicotine dependence syndrome, patient was already counseled. 6 history of migraine cephalgia 7 history of GERD. Plan: Antibiotic coverage per ID service. We'll give the patient a dose of 40 mg of Lasix . Today's chest x-ray has been reviewed by Dr. Coyle, shows bilateral pleural effusions, and prominent central vascularity, fluid overload. Discontinue the IV fluids. Hemodynamically patient remains stable, she still has intermittent fevers. ID Service is following. Patient is stable to move out of the intensive care unit today to general medical floor I performed a history & physical examination of the patient and discussed their management with my nurse practitioner, Lily Solano. I reviewed the nurse practitioner's note and agree with the documented findings and plan of care. Lung sounds are clear. The findings and the impression was discussed with the patient. I attest to the documentation by the nurse practitioner. Time with Patient: Less than 30
[2018-08-17] MEDS: ONDANSETRON 4 MG/2 ML VIAL IVP PRN (12:17)
[2018-08-17] MEDS ORDERED: METOCLOPRAMIDE 5 MG/ML 2 ML VIAL IVP PRN (14:29)
[2018-08-17 17:18] LABS: Glucose,Whole Blood 106 mg/dL (75-99)
[2018-08-17] MEDS: HYDROmorphone 0.5 MG/0.5 ML SYRINGE IVP PRN ×2 (18:24→22:23)
[2018-08-18] MEDS: traMADol 50 MG TAB PO PRN ×3 (03:29→17:11)
[2018-08-18 05:29] LABS: Basophils % (A) 0 %; Eosinophils # (A) 0.1 k/uL (0-0.7); Eosinophils % (A) 2 %; HCT 30.7 % (34.0-46.0); Lymphocytes # (A) 0.4 k/uL (1.0-4.8); Lymphocytes % (A) 5 %; MCH 31.9 pg (25.0-35.0); MCHC 32.5 g/dL (31.0-37.0); MCV 98.2 fL (80.0-100.0); Mean Platelet Volume 6.8; Monocytes # (A) 0.2 k/uL (0-1.0); Monocytes % (A) 3 %; Neutrophils # (A) 6.5 k/uL (1.3-7.7); Neutrophils % (A) 88 %; Platelet Count 196 k/uL (150-450); RBC 3.12 m/uL (3.80-5.40); RDW 13.6 % (11.5-15.5); WBC 7.4 k/uL (3.8-10.6)
[2018-08-18 05:43] LABS: Anion Gap 5 mmol/L; Blood Urea Nitrogen 9 mg/dL (7-17); Calcium 7.3 mg/dL (8.4-10.2); Carbon Dioxide 21 mmol/L (22-30); Chloride 109 mmol/L (98-107); Glucose 91 mg/dL (74-99); Magnesium 2.4 mg/dL (1.6-2.3); Potassium 3.5 mmol/L (3.5-5.1); Sodium 135 mmol/L (137-145)
--- NOTE | 2018-08-18 06:26 | P.PN ---
Subjective Progress Note Date: 08/17/18 38-year-old presents to Hospital with the sudden onset of pain and swelling and discomfort to the right lower extremity. 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 Despite the care she continues to have difficulty does have multiple hospitalizations regarding cellulitis of the right lower extremity. Her last auscultation was much more brief and she was not nearly as ill as she has been in the past. Apparently a few hours before she came to the emergency center she started feeling poorly with evidence of swelling and pain to the right leg. When she started difficulties with ambulation she sought care in the emergency center where she was found to have a temperature of 104, she was with relative hypotension and evidence of acute sepsis. He has in the past she had an extensive cellulitis right lower extremity with an ascending lymphangitis with tenderness to the right inguinal node. She was with relative hypotension requiring fluid resuscitation. With resuscitation and antipyretic she's feeling a bit better today leg is still swollen and quite painful. She has significant lactic acidosis of 4.8 now improved to 1.1. Antibiotic therapy was initiated the [facility] and emergency center with cefepime and vancomycin pending culture results. 08/17/2018 patient feels somewhat better today. The intense pain has improved but certainly not resolved. Fevers have improved. Appetite is improving without ongoing nausea or emesis. Objective - Vital Signs Vital signs: Vital Signs Temp 99.0 F 08/18/18 04:00 Pulse 100 08/18/18 04:00 Resp 12 08/18/18 04:00 BP 119/72 08/18/18 04:00 Pulse Ox 96 08/17/18 16:00 Intake & Output 08/17/18 08/17/18 08/18/18 06:59 18:59 06:59 Intake Total 1500 560 120 Output Total 660 1300 300 Balance 840 -740 -180 Weight 76 kg 76 kg Intake: IV 1200 200 0 Sodium Chloride 0.9% 1, 1200 200 0 000 ml @ 100 mls/hr IV . Q10H [facility] Rx#:[id number] Intake, IV Titration 300 160 Amount Magnesium Sulfate-D5w Pmx 300 1 gm In Dextrose/Water 1 100ml.bag @ 100 mls/hr IVPB Q1H [facility] Rx#: [id number] cefTRIAXone 2,000 mg In 160 Sodium Chloride 0.9% 100 ml @ 100 mls/hr IVPB Q24HR [facility] Rx#:[id number] Oral 200 120 Output: Urine 660 1300 300 Other: # Voids 1 1 # Bowel Movements 1 - Constitutional Constitutional Comment(s): Pleasant 38-year-old woman still very uncomfortable due to the pain and swelling of her right leg. Fever has resolved hypotension improved HEENT: Anicteric conjunctiva are pink and moist nasal mucosa grossly intact without significant lesions, there is no thrush. Neck: The neck is supple without significant lymphadenopathy or thyromegaly. Lungs: Good bilateral air entry without significant crackles or wheezing. There is no significant bronchial sounds. There is no egophony or dullness. Heart: Regular rate and rhythm with an audible S1-S2, no S3 no S4. There is no significant murmur click or rub, PMI was nondisplaced. Abdomen: Positive bowel sounds soft and nontender without palpable masses or organomegaly. There was no guarding or rebound. Extremities: The upper extremities have excellent pulses they are symmetric, no significant petechiae or telangiectasia. No splinter hemorrhages were noted. The left lower extremity shows no acute abnormalities or significant edema. Right lower extremities shows evidence of some improvement to the erythema and edema that goes from the foot all the way to the fold of the thigh. There is swelling and some improvement of the severe discomfort to the right inguinal lymph nodes. No open ulcerations or blisters are seen just a dense erythema that is quite tender. The interspaces show evidence of the thickened white material but does appear to be fungal in nature. Neuro: Awake alert oriented to person place and time. There are no acute new gross focal sensory motor deficits. - Labs CBC & Chem 7: 08/18/18 04:49 08/18/18 04:49 Labs: Abnormal Lab Results - Last 24 Hours (Table) 08/17/18 08/17/18 08/18/18 Range/Units 04:56 16:58 04:49 RBC 3.12 L (3.80-5.40) m/uL Hgb 10.0 L (11.4-16.0) gm/dL Hct 30.7 L (34.0-46.0) % Lymphocytes # 0.4 L (1.0-4.8) k/uL Sodium 136 L (137-145) mmol/L Chloride 114 H (98-107) mmol/L Carbon Dioxide 18 L (22-30) mmol/L POC Glucose (mg/dL) 106 H (75-99) mg/dL Calcium 6.9 L (8.4-10.2) mg/dL Magnesium 2.8 H (1.6-2.3) mg/dL 08/18/18 Range/Units 04:49 RBC (3.80-5.40) m/uL Hgb (11.4-16.0) gm/dL Hct (34.0-46.0) % Lymphocytes # (1.0-4.8) k/uL Sodium 135 L (137-145) mmol/L Chloride 109 H (98-107) mmol/L Carbon Dioxide 21 L (22-30) mmol/L POC Glucose (mg/dL) (75-99) mg/dL Calcium 7.3 L (8.4-10.2) mg/dL Magnesium 2.4 H (1.6-2.3) mg/dL Microbiology - Last 24 Hours (Table) 08/16/18 22:25 Blood Culture - Preliminary Blood No Growth after 24 hours 08/15/18 16:32 Blood Culture Gram Stain - Preliminary Blood Blood Culture - Preliminary Strep pyogenes (grp a) Microbiology 08/16/18 22:25 Blood Blood Culture - Preliminary No Growth after 24 hours 08/15/18 16:32 Blood Blood Culture Gram Stain - Preliminary 08/15/18 16:32 Blood Blood Culture - Preliminary Strep pyogenes (grp a) 08/15/18 16:32 Blood Blood Culture Gram Stain - Preliminary 08/16/18 19:00 Skin Scrapings Skin Fungal Culture - Preliminary 08/15/18 16:12 Urine,Clean Catch Urine Culture - Final 08/15/18 16:32 Blood Blood Culture - Final Assessment and Plan (1) Cellulitis of right leg Narrative/Plan: 38-year-old woman presents to Hospital feeling acutely ill with high-grade fever chills and rigors associated with the significant pain and swelling to the right lower extremity. No new acute lesions or injuries of occurred but she has the chronic abnormality to the skin and interspaces of her toes which appears to be the portal of entry. She is evidence of significant streptococcal sepsis coming from that site with the cellulitis ascending lymphangitis and lymphadenopathy. She has severe sepsis as noted by the elevated lactic acid, and the significant infection to the right leg and bacteremia. Antimicrobial therapy will be tailored as we have further data, she originally had streptococcal infection in the past. We'll de-escalate antibiotic therapy as soon as possible. Follow blood cultures will be requested. She is having relative hypotension and will add in tramadol for some pain control with Tylenol. Elevate the limb while at rest. Topical antifungal therapy will be utilized to the interspace and systemic fluconazole his early been added. Should have further evaluation in the outpatient setting regarding the abnormality to the foot. 08/17/2018 patient is having some improvement in the last day. Still very uncomfortable but swelling erythema are improving and the intensity of the pain has lessened. She's no longer having high-grade fevers. There is some improvement and Streptococcus pyogenes is isolated as it has been in the past. Continue antibiotic therapy with ceftriaxone and the antifungal therapy. Pain control is much improved today. Continue elevating the limb she cannot tolerate compression. Current Visit: Yes Status: Acute Code(s): L03.115 - CELLULITIS OF RIGHT LOWER LIMB SNOMED Code(s): 207443561 (2) Acute lymphangitis of right lower extremity Current Visit: Yes Status: Acute Code(s): L03.125 - ACUTE LYMPHANGITIS OF RIGHT LOWER LIMB SNOMED Code(s): 8637250 (3) Sepsis due to Streptococcus pyogenes Current Visit: Yes Status: Acute Code(s): A40.0 - SEPSIS DUE TO STREPTOCOCCUS, GROUP A SNOMED Code(s): 985693515
[2018-08-18] MEDS ORDERED: Potassium Replacement Protocol 1 EACH MISC MISCELLANE PRN (06:53)
[2018-08-18] MEDS: POTASSIUM CHLORIDE ER 20 MEQ TAB.ER PO SCH ×2 (07:00→09:32)
[2018-08-18] MEDS: cefTRIAXone 2,000 MG in SODIUM CHLORIDE 0.9% 100 ML IVPB SCH (09:32)
[2018-08-18] MEDS: FLUCONAZOLE 100 MG TAB PO SCH (09:35)
[2018-08-18] MEDS: ACETAMINOPHEN TAB 325 MG TAB PO PRN ×2 (09:35→17:12)
[2018-08-18] MEDS: HEPARIN SODIUM,PORCINE 5,000 UNIT/ML 1 ML VIAL SQ SCH ×2 (09:35→21:30)
[2018-08-18] MEDS: PANTOPRAZOLE 40 MG/10 ML VIAL IV SCH (09:36)
--- NOTE | 2018-08-18 09:51 | P.PN ---
Subjective Progress Note Date: 08/18/18 Principal diagnosis: Acute sepsis secondary to right lower extremity cellulitis, with strep a bacteremia This is a 38-year-old female with history of chronic cellulitis involving the right lower extremity. History of sepsis and bacteremia secondary to Streptococcus. pyogenes, history of chronic cellulitis and possible fungal infection of the interdigital area of toes. History of multiple medical problems including migraine cephalgia, cervical cancer, GERD, hoarse voice, and sometimes difficulty swallowing. Patient presented to the ER last night with mostly symptoms of one day history of right lower extremity pain, swelling, tenderness, and fever as high as 101.3. Clearly upon presentation the patient was septic she had elevated lactic acid, she was hypotensive, had leukocytosis, initial lactic acid was 4.8. Patient received 3 L of fluid boluses, finally responded to fluid boluses, did not require placement on norepinephrine. I was made aware of this patient last night, and recommended admission to the ICU. I did recommend vancomycin, initially she was given in addition to vancomycin and cefepime, however I switch her today to a Rocephin after reviewing the previous microbiology on this patient from the last admission. Patient was seen in the past by Dr. Coles, and she had a similar presentation not too long ago. Her last evaluation by Dr. Coles was on 03/01/2018. According to his note, the patient had multiple evaluations in the past for cellulitis involving the right lower extremity. At her initial episode was when she was 16 years old. According to his previous note, the patient had chronic skin condition that causes skin breakdown, and she develops fungal infection, and then she also develops invasive bacterial infection. In the past she has been treated on outpatient basis with Keflex and Diflucan. On 08/17/2018 patient seen in follow-up in the intensive care unit. She is awake and alert, in no acute distress, right lower leg is still quite swollen, tender to touch and warm. Patient is hemodynamically stable, T-max in the last 24 hours was 102.7F. Saturations on 3 L per nasal cannula is 96%, sinus rhythm on the monitor, the controlled rate. Blood cultures showed strep pyogenes in the blood cultures. Patient is currently on a combination of Rocephin and vancomycin. Dopplers of the right lower extremity was negative, and the study was suboptimal he did not show any convincing evidence of acute DVT. There were abnormal right groin lymph nodes noted greater than 1 cm, could be related to infection or inflammation. Today's chest x-ray was reviewed , and shows is consistent with fluid overload, pleural effusions and central vascular congestion. Today's labs have been reviewed, WBCs 10.3, hemoglobin is 10.6, sodium is 136, potassium is 3.8, chloride is 114, CO2 is 18, and BUN was 13 and creatinine 0.73. On 08/18/2018 patient seen in follow-up in the intensive care unit, she is awaiting a bed on the general medical floor. She is awake and alert, in no acute distress, she is on 3 L per nasal cannula her pulse ox is 96%, he is still having intermittent low-grade fevers, with a T-max of 100.2F. Denies any difficulty breathing, is complaining of moderate headache, denies any visual changes, she states her current tramadol is not helping, had an episode of nausea and emesis yesterday, nothing today. Today's blood work has been reviewed, WBC is 7.4, hemoglobin is 10.0, sodium is 134, potassium is 3.5, chloride is 109, CO2 is 21, BUN is 9, creatinine 0.70. Yesterday we begin the patient on dose of IV Lasix, and there is improvement in the appearance of generalized edema, right lower extremity edema, however there is still some swelling and redness and warmth to the right lower extremity particularly to the right groin area. No chest x-ray today. The intense pain to the right leg has improved. Appetite has improved, fever pattern is improving. He service is following, and patient is on Rocephin, Diflucan. Objective - Vital Signs Vital signs: Vital Signs Temp 99.0 F 08/18/18 04:00 Pulse 100 08/18/18 04:00 Resp 12 08/18/18 04:00 BP 119/72 08/18/18 04:00 Pulse Ox 96 08/18/18 08:29 Intake & Output 08/17/18 08/18/18 08/18/18 18:59 06:59 18:59 Intake Total 560 120 Output Total 1300 300 Balance -740 -180 Weight 76 kg Intake: IV 200 0 Sodium Chloride 0.9% 1, 200 0 000 ml @ 100 mls/hr IV . Q10H [facility] Rx#:[id number] Intake, IV Titration 160 Amount cefTRIAXone 2,000 mg In 160 Sodium Chloride 0.9% 100 ml @ 100 mls/hr IVPB Q24HR [facility] Rx#:[id number] Oral 200 120 Output: Urine 1300 300 Other: # Voids 1 1 - Exam GENERAL: Revealed a 38-year-old female in no distress, very pleasant. HEENT: Pupils are round and equally reacting to light. EOMI. No scleral icterus. No conjunctival pallor. Normocephalic, atraumatic. No pharyngeal erythema. No thyromegaly. CARDIOVASCULAR: S1 and S2 present. No murmurs, rubs, or gallops. PULMONARY: Clear throughout, no crackles or rhonchi or wheezes, no chest wall tenderness. ABDOMEN: Soft, nontender, nondistended, normoactive bowel sounds. No palpable organomegaly. MUSCULOSKELETAL: No joint swelling or deformity. EXTREMITIES: Swelling, erythema, tenderness over the right lower extremity extending from the groin area down to the ankle top of foot. Palpable distal pulses. Patient has nonpitting swelling of the left upper extremity due to IV fluid infiltration, improved on today's exam. NEUROLOGICAL: Gross neurological examination did not reveal any focal deficits. SKIN: Significant breaking of the skin noted in the interdigital area between between the toes. Of the right foot. Psychiatric: Normal mood, affect and mental status examination. - Labs CBC & Chem 7: 08/18/18 04:49 08/18/18 04:49 Labs: Abnormal Lab Results - Last 24 Hours (Table) 08/17/18 08/18/18 08/18/18 Range/Units 16:58 04:49 04:49 RBC 3.12 L (3.80-5.40) m/uL Hgb 10.0 L (11.4-16.0) gm/dL Hct 30.7 L (34.0-46.0) % Lymphocytes # 0.4 L (1.0-4.8) k/uL Sodium 135 L (137-145) mmol/L Chloride 109 H (98-107) mmol/L Carbon Dioxide 21 L (22-30) mmol/L POC Glucose (mg/dL) 106 H (75-99) mg/dL Calcium 7.3 L (8.4-10.2) mg/dL Magnesium 2.4 H (1.6-2.3) mg/dL Microbiology - Last 24 Hours (Table) 08/15/18 16:32 Blood Culture Gram Stain - Preliminary Blood Blood Culture - Preliminary Strep pyogenes (grp a) 08/16/18 22:25 Blood Culture - Preliminary Blood No Growth after 24 hours 08/15/18 16:32 Blood Culture Gram Stain - Preliminary Blood Blood Culture - Preliminary Strep pyogenes (grp a) Assessment and Plan Plan: 1 acute sepsis secondary to right lower extremity cellulitis, most likely streptococcal in nature, however considering the presentation, patient will be started on vancomycin and Rocephin. Empirically until the final cultures are available. On 08/18/2018 patient's fever pattern is improving, still running some low- grade intermittent fevers, the swelling and tenderness in the right lower extremity is improving, currently on a combination of Rocephin, fluconazole, and patient is receiving Lotrimin cream topically to the right foot. 2 acute bacteremia secondary to Streptococcus.pyogenes group a, the source is the right lower extremity unless for otherwise. 3 acute cellulitis of the right lower extremity 4 interdigital fungal infection, patient was already started on Diflucan, local antifungal's maybe use, however with a fair recommendation to infectious disease on the case. 5 nicotine dependence syndrome, patient was already counseled. 6 history of migraine cephalgia 7 history of GERD. Plan: Continue with of antibiotics per ID service recommendation, overall generalized edema has improved, right lower extremity pain, and swelling is improved. She is awaiting a bed on general medical floor. no difficulty breathing, no chest pain,vital signs are stable. I performed a history & physical examination of the patient and discussed their management with my nurse practitioner, Lily Solano. I reviewed the nurse practitioner's note and agree with the documented findings and plan of care. Lung sounds are clear. The findings and the impression was discussed with the patient. I attest to the documentation by the nurse practitioner. Time with Patient: Less than 30
[2018-08-18] MEDS ORDERED: BENZONATATE 100 MG CAP PO PRN (11:05)
[2018-08-18] MEDS ORDERED: Acetaminophen-Codeine 300-30mg TAB PO PRN (11:07)
[2018-08-18] MEDS: CLOTRIMAZOLE 1% CREAM 15 GM TUBE TOPICAL SCH (11:09)
--- NOTE | 2018-08-18 23:56 | P.PN ---
Subjective Progress Note Date: 08/18/18 38-year-old presents to Hospital with the sudden onset of pain and swelling and discomfort to the right lower extremity. 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 Despite the care she continues to have difficulty does have multiple hospitalizations regarding cellulitis of the right lower extremity. Her last auscultation was much more brief and she was not nearly as ill as she has been in the past. Apparently a few hours before she came to the emergency center she started feeling poorly with evidence of swelling and pain to the right leg. When she started difficulties with ambulation she sought care in the emergency center where she was found to have a temperature of 104, she was with relative hypotension and evidence of acute sepsis. He has in the past she had an extensive cellulitis right lower extremity with an ascending lymphangitis with tenderness to the right inguinal node. She was with relative hypotension requiring fluid resuscitation. With resuscitation and antipyretic she's feeling a bit better today leg is still swollen and quite painful. She has significant lactic acidosis of 4.8 now improved to 1.1. Antibiotic therapy was initiated the [facility] emergency center with cefepime and vancomycin pending culture results. 08/17/2018 patient feels somewhat better today. The intense pain has improved but certainly not resolved. Fevers have improved. Appetite is improving without ongoing nausea or emesis. 08/18/2018 patient is markedly improved today. Pain is considerably improved. Swelling of breath also improved. Objective - Vital Signs Vital signs: Vital Signs Temp 98.4 F 08/18/18 16:00 Pulse 84 08/18/18 16:00 Resp 16 08/18/18 16:00 BP 118/82 08/18/18 20:00 Pulse Ox 92 L 08/18/18 20:00 Intake & Output 08/18/18 08/18/18 08/19/18 06:59 18:59 06:59 Intake Total 120 700 Output Total 300 900 400 Balance -180 -200 -400 Weight 76 kg Intake: IV 0 Sodium Chloride 0.9% 1, 0 000 ml @ 100 mls/hr IV . Q10H [facility] Rx#:[id number] Intake, IV Titration 100 Amount cefTRIAXone 2,000 mg In 100 Sodium Chloride 0.9% 100 ml @ 100 mls/hr IVPB Q24HR [facility] Rx#:[id number] Oral 120 600 Output: Urine 300 900 400 Other: # Voids 1 0 - Exam Pleasant 38-year-old woman still very uncomfortable due to the pain and swelling of her right leg. Fever has resolved hypotension improved HEENT: Anicteric conjunctiva are pink and moist nasal mucosa grossly intact without significant lesions, there is no thrush. Neck: The neck is supple without significant lymphadenopathy or thyromegaly. Lungs: Good bilateral air entry without significant crackles or wheezing. There is no significant bronchial sounds. There is no egophony or dullness. Heart: Regular rate and rhythm with an audible S1-S2, no S3 no S4. There is no significant murmur click or rub, PMI was nondisplaced. Abdomen: Positive bowel sounds soft and nontender without palpable masses or organomegaly. There was no guarding or rebound. Extremities: The upper extremities have excellent pulses they are symmetric, no significant petechiae or telangiectasia. No splinter hemorrhages were noted. The left lower extremity shows no acute abnormalities or significant edema. Right lower extremities shows evidence of some improvement to the erythema and edema that goes from the foot all the way to the fold of the thigh. There is improvement in the swelling and intense tenderness to the right inguinal lymph nodes. No open ulcerations or blisters are seen just a dense erythema that is now much less tender than at admission. The interspaces show evidence of the thickened white material but does appear to be fungal in nature. Neuro: Awake alert oriented to person place and time. There are no acute new gross focal sensory motor deficits. - Labs CBC & Chem 7: 08/18/18 04:49 08/18/18 04:49 Labs: Abnormal Lab Results - Last 24 Hours (Table) 08/18/18 08/18/18 Range/Units 04:49 04:49 RBC 3.12 L (3.80-5.40) m/uL Hgb 10.0 L (11.4-16.0) gm/dL Hct 30.7 L (34.0-46.0) % Lymphocytes # 0.4 L (1.0-4.8) k/uL Sodium 135 L (137-145) mmol/L Chloride 109 H (98-107) mmol/L Carbon Dioxide 21 L (22-30) mmol/L Calcium 7.3 L (8.4-10.2) mg/dL Magnesium 2.4 H (1.6-2.3) mg/dL Microbiology - Last 24 Hours (Table) 08/15/18 16:32 Blood Culture Gram Stain - Preliminary Blood Blood Culture - Preliminary Strep pyogenes (grp a) 08/16/18 22:25 Blood Culture - Preliminary Blood No Growth after 24 hours Assessment and Plan (1) Cellulitis of right leg Narrative/Plan: 38-year-old woman presents to Hospital feeling acutely ill with high-grade fever chills and rigors associated with the significant pain and swelling to the right lower extremity. No new acute lesions or injuries of occurred but she has the chronic abnormality to the skin and interspaces of her toes which appears to be the portal of entry. She is evidence of significant streptococcal sepsis coming from that site with the cellulitis ascending lymphangitis and lymphadenopathy. She has severe sepsis as noted by the elevated lactic acid, and the significant infection to the right leg and bacteremia. Antimicrobial therapy will be tailored as we have further data, she originally had streptococcal infection in the past. We'll de-escalate antibiotic therapy as soon as possible. Follow blood cultures will be requested. She is having relative hypotension and will add in tramadol for some pain control with Tylenol. Elevate the limb while at rest. Topical antifungal therapy will be utilized to the interspace and systemic fluconazole his early been added. Should have further evaluation in the outpatient setting regarding the abnormality to the foot. 08/17/2018 patient is having some improvement in the last day. Still very uncomfortable but swelling erythema are improving and the intensity of the pain has lessened. She's no longer having high-grade fevers. There is some improvement and Streptococcus pyogenes is isolated as it has been in the past. Continue antibiotic therapy with ceftriaxone and the antifungal therapy. Pain control is much improved today. Continue elevating the limb she cannot tolerate compression. 08/18/2018 patient is now considerably improved over the last day. The significant pain is much improved the swelling and erythema have also improved from an excellent response to Rocephin therapy. Will plan transition at discharge Current Visit: Yes Status: Acute Code(s): L03.115 - CELLULITIS OF RIGHT LOWER LIMB SNOMED Code(s): 825889406 (2) Acute lymphangitis of right lower extremity Current Visit: Yes Status: Acute Code(s): L03.125 - ACUTE LYMPHANGITIS OF RIGHT LOWER LIMB SNOMED Code(s): 2631597 (3) Sepsis due to Streptococcus pyogenes Current Visit: Yes Status: Acute Code(s): A40.0 - SEPSIS DUE TO STREPTOCOCCUS, GROUP A SNOMED Code(s): 793932571
[2018-08-19] MEDS: traMADol 50 MG TAB PO PRN ×3 (01:44→23:30)
[2018-08-19] MEDS: CLOTRIMAZOLE 1% CREAM 15 GM TUBE TOPICAL SCH ×3 (02:40→22:27)
[2018-08-19 05:29] LABS: Basophils % (A) 0 %; Eosinophils # (A) 0.2 k/uL (0-0.7); Eosinophils % (A) 3 %; HCT 29.9 % (34.0-46.0); HGB 9.9 gm/dL (11.4-16.0); Lymphocytes # (A) 0.4 k/uL (1.0-4.8); Lymphocytes % (A) 7 %; MCH 32.2 pg (25.0-35.0); MCHC 33.2 g/dL (31.0-37.0); MCV 96.9 fL (80.0-100.0); Mean Platelet Volume 6.8; Monocytes # (A) 0.3 k/uL (0-1.0); Monocytes % (A) 5 %; Neutrophils # (A) 4.9 k/uL (1.3-7.7); Neutrophils % (A) 82 %; Platelet Count 240 k/uL (150-450); RBC 3.09 m/uL (3.80-5.40); RDW 13.5 % (11.5-15.5)
[2018-08-19 05:41] LABS: Anion Gap 5 mmol/L; Blood Urea Nitrogen 7 mg/dL (7-17); Calcium 7.9 mg/dL (8.4-10.2); Carbon Dioxide 23 mmol/L (22-30); Chloride 109 mmol/L (98-107); Glucose 94 mg/dL (74-99); Magnesium 2.1 mg/dL (1.6-2.3); Potassium 3.9 mmol/L (3.5-5.1); Sodium 137 mmol/L (137-145)
[2018-08-19] MEDS: PANTOPRAZOLE 40 MG TABLET PO SCH (06:45)
[2018-08-19] MEDS: ONDANSETRON 4 MG/2 ML VIAL IVP PRN (08:43)
[2018-08-19] MEDS: ACETAMINOPHEN TAB 325 MG TAB PO PRN (08:43)
[2018-08-19] MEDS: cefTRIAXone 2,000 MG in SODIUM CHLORIDE 0.9% 100 ML IVPB SCH (08:43)
[2018-08-19] MEDS: HEPARIN SODIUM,PORCINE 5,000 UNIT/ML 1 ML VIAL SQ SCH ×2 (08:43→22:27)
[2018-08-19] MEDS: FLUCONAZOLE 100 MG TAB PO SCH (08:44)
--- NOTE | 2018-08-19 09:23 | P.PN ---
Subjective Progress Note Date: 08/19/18 Principal diagnosis: Acute sepsis secondary to right lower extremity cellulitis, with strep a bacteremia This is a 38-year-old female with history of chronic cellulitis involving the right lower extremity. History of sepsis and bacteremia secondary to Streptococcus. pyogenes, history of chronic cellulitis and possible fungal infection of the interdigital area of toes. History of multiple medical problems including migraine cephalgia, cervical cancer, GERD, hoarse voice, and sometimes difficulty swallowing. Patient presented to the ER last night with mostly symptoms of one day history of right lower extremity pain, swelling, tenderness, and fever as high as 101.3. Clearly upon presentation the patient was septic she had elevated lactic acid, she was hypotensive, had leukocytosis, initial lactic acid was 4.8. Patient received 3 L of fluid boluses, finally responded to fluid boluses, did not require placement on norepinephrine. I was made aware of this patient last night, and recommended admission to the ICU. I did recommend vancomycin, initially she was given in addition to vancomycin and cefepime, however I switch her today to a Rocephin after reviewing the previous microbiology on this patient from the last admission. Patient was seen in the past by Dr. Coles, and she had a similar presentation not too long ago. Her last evaluation by Dr. Coles was on 03/01/2018. According to his note, the patient had multiple evaluations in the past for cellulitis involving the right lower extremity. At her initial episode was when she was 16 years old. According to his previous note, the patient had chronic skin condition that causes skin breakdown, and she develops fungal infection, and then she also develops invasive bacterial infection. In the past she has been treated on outpatient basis with Keflex and Diflucan. On 08/17/2018 patient seen in follow-up in the intensive care unit. She is awake and alert, in no acute distress, right lower leg is still quite swollen, tender to touch and warm. Patient is hemodynamically stable, T-max in the last 24 hours was 102.7F. Saturations on 3 L per nasal cannula is 96%, sinus rhythm on the monitor, the controlled rate. Blood cultures showed strep pyogenes in the blood cultures. Patient is currently on a combination of Rocephin and vancomycin. Dopplers of the right lower extremity was negative, and the study was suboptimal he did not show any convincing evidence of acute DVT. There were abnormal right groin lymph nodes noted greater than 1 cm, could be related to infection or inflammation. Today's chest x-ray was reviewed , and shows is consistent with fluid overload, pleural effusions and central vascular congestion. Today's labs have been reviewed, WBCs 10.3, hemoglobin is 10.6, sodium is 136, potassium is 3.8, chloride is 114, CO2 is 18, and BUN was 13 and creatinine 0.73. On 08/18/2018 patient seen in follow-up in the intensive care unit, she is awaiting a bed on the general medical floor. She is awake and alert, in no acute distress, she is on 3 L per nasal cannula her pulse ox is 96%, he is still having intermittent low-grade fevers, with a T-max of 100.2F. Denies any difficulty breathing, is complaining of moderate headache, denies any visual changes, she states her current tramadol is not helping, had an episode of nausea and emesis yesterday, nothing today. Today's blood work has been reviewed, WBC is 7.4, hemoglobin is 10.0, sodium is 134, potassium is 3.5, chloride is 109, CO2 is 21, BUN is 9, creatinine 0.70. Yesterday we begin the patient on dose of IV Lasix, and there is improvement in the appearance of generalized edema, right lower extremity edema, however there is still some swelling and redness and warmth to the right lower extremity particularly to the right groin area. No chest x-ray today. The intense pain to the right leg has improved. Appetite has improved, fever pattern is improving. He service is following, and patient is on Rocephin, Diflucan. On 08/19/2018 patient seen again in follow-up in the intensive care unit, she is awaiting a bed on general medical floor. Willing and tenderness in her right lower leg is improving, she was able to tolerate weightbearing on the right leg, she is on room air, she is afebrile, hemodynamically stable. Follow- up cultures were negative. Today's lab work has been reviewed. ID service is on in managing the antibiotics. Fever pattern has improved. Patient's biggest complaint today is persistent headache, patient had a dose of IV Dilaudid, and developed some nausea. Objective - Vital Signs Vital signs: Vital Signs Temp 98.4 F 08/19/18 05:00 Pulse 80 08/19/18 05:00 Resp 12 08/19/18 05:00 BP 122/66 08/19/18 05:00 Pulse Ox 93 L 08/19/18 00:00 Intake & Output 08/18/18 08/19/18 08/19/18 18:59 06:59 18:59 Intake Total 700 240 Output Total 900 750 Balance -200 -510 Weight 69.4 kg Intake: Intake, IV Titration 100 0 Amount cefTRIAXone 2,000 mg In 100 0 Sodium Chloride 0.9% 100 ml @ 100 mls/hr IVPB Q24HR [facility] Rx#:[id number] Oral 600 240 Output: Urine 900 750 Other: # Voids 0 - Exam GENERAL: Revealed a 38-year-old female in no distress, very pleasant. HEENT: Pupils are round and equally reacting to light. EOMI. No scleral icterus. No conjunctival pallor. Normocephalic, atraumatic. No pharyngeal erythema. No thyromegaly. CARDIOVASCULAR: S1 and S2 present. No murmurs, rubs, or gallops. PULMONARY: Clear throughout, no crackles or rhonchi or wheezes, no chest wall tenderness. ABDOMEN: Soft, nontender, nondistended, normoactive bowel sounds. No palpable organomegaly. MUSCULOSKELETAL: No joint swelling or deformity. EXTREMITIES: Swelling, erythema, tenderness over the right lower extremity extending from the groin area down to the ankle top of foot. Palpable distal pulses. Patient has nonpitting swelling of the left upper extremity due to IV fluid infiltration, improved on today's exam. NEUROLOGICAL: Gross neurological examination did not reveal any focal deficits. SKIN: Significant breaking of the skin noted in the interdigital area between between the toes. Of the right foot. Psychiatric: Normal mood, affect and mental status examination. - Labs CBC & Chem 7: 08/19/18 04:53 08/19/18 04:53 Labs: Abnormal Lab Results - Last 24 Hours (Table) 08/19/18 08/19/18 Range/Units 04:53 04:53 RBC 3.09 L (3.80-5.40) m/uL Hgb 9.9 L (11.4-16.0) gm/dL Hct 29.9 L (34.0-46.0) % Lymphocytes # 0.4 L (1.0-4.8) k/uL Chloride 109 H (98-107) mmol/L Calcium 7.9 L (8.4-10.2) mg/dL Microbiology - Last 24 Hours (Table) 08/16/18 22:25 Blood Culture - Preliminary Blood No Growth after 48 hours 08/15/18 16:32 Blood Culture Gram Stain - Preliminary Blood Blood Culture - Preliminary Strep pyogenes (grp a) Assessment and Plan Plan: 1 acute sepsis secondary to right lower extremity cellulitis, most likely streptococcal in nature, however considering the presentation, patient will be started on vancomycin and Rocephin. Empirically until the final cultures are available. On 08/18/2018 patient's fever pattern is improving, still running some low- grade intermittent fevers, the swelling and tenderness in the right lower extremity is improving, currently on a combination of Rocephin, fluconazole, and patient is receiving Lotrimin cream topically to the right foot. 2 acute bacteremia secondary to Streptococcus.pyogenes group a, the source is the right lower extremity unless for otherwise. 3 acute cellulitis of the right lower extremity 4 interdigital fungal infection, patient was already started on Diflucan, local antifungal's maybe use, however with a fair recommendation to infectious disease on the case. 5 nicotine dependence syndrome, patient was already counseled. 6 history of migraine cephalgia 7 history of GERD. Plan: Continue events per ID service recommendations, fever pattern in the swelling and tenderness in the right lower extremity is improving. Follow blood cultures are negative so far. Patient is having persistent headache, and some nausea. Otherwise no other events overnight, we'll continue to follow, awaiting a bed in general medical floor. I performed a history & physical examination of the patient and discussed their management with my nurse practitioner, Lily Solano. I reviewed the nurse practitioner's note and agree with the documented findings and plan of care. Lung sounds are clear. The findings and the impression was discussed with the patient. I attest to the documentation by the nurse practitioner. Time with Patient: Less than 30
--- NOTE | 2018-08-20 01:45 | P.PN ---
Subjective Progress Note Date: 08/17/18 Progress note being dictated for Dr. Ambrose. Interval history: This a 38-year-old female admitted with acute cellulitis of the right leg, severe sepsis, septic shock, hypotension and multiple other medical issues. Maintained on broad-spectrum IV antibiotics as per infectious disease. T-max 102.7,normal WBC. Chest x-ray reporting progressive bilateral consolidation/pleural effusion, fluid overload, central vascular congestion. Received a dose of Lasix IV push. Maintaining O2 sats of 96% on 3 L nasal cannula. Improving diet intake. Review of systems: CONSTITUTIONAL: Positive fevers, fatigue. HEENT: No recent visual problems or hearing problems. Denied any sore throat. CARDIOVASCULAR: No chest pain, orthopnea, PND, no palpitations, no syncope. PULMONARY: No shortness of breath, no cough, no hemoptysis. GASTROINTESTINAL: No diarrhea, no nausea, no vomiting, no abdominal pain. Normoactive bowel sounds. NEUROLOGICAL: headache, no weakness, no numbness. HEMATOLOGICAL: Denies any bleeding or petechiae. GENITOURINARY: Denies any burning micturition, frequency, or urgency. MUSCULOSKELETAL/RHEUMATOLOGICAL: Increased right leg pain with standing ENDOCRINE: Denies any polyuria or polydipsia. PSYCHIATRIC: No anxiety, no depression The rest of the 14 point review of systems is negative Active Medications Acetaminophen (Tylenol Tab) 650 mg PO Q6HR PRN PRN Reason: Mild Pain or Fever > 100.5 Last Admin: 08/17/18 06:07 Dose: 650 mg Clotrimazole (Lotrimin Cream) 1 applic TOPICAL BID PENDING SALE TO [facility] Last Admin: 08/17/18 08:47 Dose: 1 applic Fluconazole (Diflucan) 200 mg PO DAILY PENDING SALE TO [facility] Last Admin: 08/17/18 08:49 Dose: 200 mg Heparin Sodium (Porcine) (Heparin) 5,000 unit SQ Q12HR PENDING SALE TO [facility] Last Admin: 08/17/18 08:47 Dose: 5,000 unit Hydromorphone HCl (Dilaudid) 0.5 mg IVP Q4HR PRN PRN Reason: Pain Ceftriaxone Sodium 2,000 mg/ (Sodium Chloride) 100 mls @ 100 mls/hr IVPB Q24HR PENDING SALE TO [facility] Last Admin: 08/17/18 09:51 Dose: 100 mls/hr Ibuprofen (Motrin) 400 mg PO Q6HR PRN PRN Reason: Mild Pain or Fever > 100.5 Last Admin: 08/17/18 06:08 Dose: 400 mg Metoclopramide HCl (Reglan) 5 mg IVP Q6HR PRN PRN Reason: Nausea And Vomiting Last Admin: 08/17/18 15:02 Dose: 5 mg Miscellaneous Information (Magnesium Per Protocol) 1 each MISCELLANE DAILY PRN ; Protocol PRN Reason: Per Protocol Miscellaneous Information (Potassium Per Protocol) 1 each MISCELLANE DAILY PRN ; Protocol PRN Reason: Per Protocol Naloxone HCl (Narcan) 0.2 mg IV Q2M PRN PRN Reason: Opioid Reversal Ondansetron HCl (Zofran) 4 mg IVP Q6HR PRN PRN Reason: Nausea And Vomiting Last Admin: 08/17/18 12:17 Dose: 4 mg Pantoprazole Sodium (Protonix) 40 mg IV DAILY PENDING SALE TO [facility] Last Admin: 08/17/18 08:48 Dose: 40 mg Tramadol HCl (Ultram) 50 mg PO QID PRN PRN Reason: MODERATE Pain Last Admin: 08/17/18 07:09 Dose: 50 mg Objective - Vital Signs Vital signs: Vital Signs Temp 98.6 F 08/17/18 12:00 Pulse 86 08/17/18 15:00 Resp 34 H 08/17/18 12:00 BP 117/71 08/17/18 12:00 Pulse Ox 96 08/17/18 12:00 Intake & Output 08/16/18 08/17/18 08/17/18 18:59 06:59 18:59 Intake Total 1650 1500 560 Output Total 530 092 4493 Balance 850 840 -740 Weight 76 kg Intake: IV 1200 1200 200 Sodium Chloride 0.9% 1, 1200 1200 200 000 ml @ 100 mls/hr IV . Q10H [facility] Rx#:[id number] Intake, IV Titration 350 300 160 Amount Magnesium Sulfate-D5w Pmx 300 1 gm In Dextrose/Water 1 100ml.bag @ 100 mls/hr IVPB Q1H [facility] Rx#: [id number] Vancomycin 1,250 mg In 250 Sodium Chloride 0.9% 250 ml @ 125 mls/hr IVPB Q12H [facility] Rx#:[id number] cefTRIAXone 2,000 mg In 100 160 Sodium Chloride 0.9% 100 ml @ 100 mls/hr IVPB Q24HR [facility] Rx#:[id number] Oral 100 200 Output: Urine 103 119 4048 Other: # Voids 1 1 # Bowel Movements 1 1 - Exam PHYSICAL EXAM: VITAL SIGNS: As above GENERAL: Sitting up in chair, no acute distress HEENT: Conjunctivae normal. eyes normal. Oral mucosa moist NECK: No JVD. No thyroid enlargement. No LNs CARDIOVASCULAR: S1, S2 muffled. No murmur, rub or gallop RESPIRATION: Breath sounds diminished in the bases. No rhonchi, no crackles, no wheezes. ABDOMEN: Soft, nontender . No guarding. no masses palpable. Bowel sounds heard. LEGS: Slowly Improving swelling,edema,erythema, with decreasing diffuse tenderness of right leg from groin to foot.warm .positive pulses. PSYCHIATRY: Alert and oriented -3, mood and affect normal. NERVOUS SYSTEM: Cranial N 2-12 grossly normal. Moves all 4 limbs. Diffuse weakness No focal deficits. Skin: no ulcer no rash. Left upper extremity edema-infiltrated IV. Lymphatic system. No LN neck, axilla. Microbiology 08/15/18 16:32 Blood Blood Culture Gram Stain - Final 08/15/18 16:32 Blood Blood Culture - Final Strep pyogenes (grp a) 08/15/18 16:32 Blood Blood Culture Gram Stain - Final 08/15/18 16:32 Blood Blood Culture - Final Strep pyogenes (grp a) 08/16/18 22:25 Blood Blood Culture - Preliminary No Growth after 48 hours 08/16/18 19:00 Skin Scrapings Skin Fungal Culture - Preliminary 08/15/18 16:12 Urine,Clean Catch Urine Culture - Final 08/15/18 16:32 Blood Blood Culture - Final - Labs CBC & Chem 7: 08/19/18 04:53 08/19/18 04:53 Labs: Abnormal Lab Results - Last 24 Hours (Table) 08/17/18 08/17/18 Range/Units 04:56 04:56 RBC 3.30 L (3.80-5.40) m/uL Hgb 10.6 L (11.4-16.0) gm/dL Hct 33.0 L (34.0-46.0) % Neutrophils # 9.7 H (1.3-7.7) k/uL Lymphocytes # 0.2 L (1.0-4.8) k/uL Sodium 136 L (137-145) mmol/L Chloride 114 H (98-107) mmol/L Carbon Dioxide 18 L (22-30) mmol/L Calcium 6.9 L (8.4-10.2) mg/dL Magnesium 2.8 H (1.6-2.3) mg/dL Microbiology - Last 24 Hours (Table) 08/15/18 16:32 Blood Culture Gram Stain - Preliminary Blood Blood Culture - Preliminary Strep pyogenes (grp a) 08/15/18 16:32 Blood Culture Gram Stain - Preliminary Blood 08/16/18 19:00 Skin Fungal Culture - Preliminary Skin Scrapings 08/15/18 16:12 Urine Culture - Final Urine,Clean Catch Assessment and Plan Assessment: -Acute cellulitis, acute lymphangitis of the right leg with severe sepsis, septic shock -Acute hypoxic respiratory failure secondary to the above -Acute bacteremia secondary to Streptococcus pyogenes group a - hypotension secondary to sepsis, resolved -Fungal infection ,interdigital -History of recurrent cellulitis of the right side -History of previous multiple sepsis -Ongoing nicotine dependence -History of migraines Plan: Continue on current medication regime ,monitoring and symptomatic treatment. Maintain IV antibiotics as per infectious disease. Final cultures pending. IV fluids discontinued in addition to a dose of Lasix IV push for fluid overload. MedSurg overflow, awaiting bed. Prognosis guarded given multiple complex medical issues. The impression and plan of care has been dictated as directed. : I performed a history and examination of this patient, discussed the same with the dictator. I agree with the dictator's note ,documented as a scribe. Any additional findings or plans will be noted.
--- NOTE | 2018-08-20 01:59 | P.PN ---
Subjective Progress Note Date: 08/18/18 Progress note being dictated for Dr. Ambrose. Interval history: This a 38-year-old female admitted with acute cellulitis of the right leg, severe sepsis, septic shock, hypotension and multiple other medical issues. Maintained on broad-spectrum IV antibiotics as per infectious disease. T-max 102.7,normal WBC. Chest x-ray reporting progressive bilateral consolidation/pleural effusion, fluid overload, central vascular congestion. Received a dose of Lasix IV push. Maintaining O2 sats of 96% on 3 L nasal cannula. Improving diet intake. 08/18/18 MedSurg overflow. Complains of headache; attributed to infection. Receiving potassium supplements. Right leg edema and pain continues to improve. Maintained on Diflucan, Rocephin.Fevers improving, T-max 100, WBC 7.4. O2 sat 92% on room air. Review of systems: CONSTITUTIONAL: fevers lessening, fatigue. HEENT: No recent visual problems or hearing problems. Denied any sore throat. CARDIOVASCULAR: No chest pain, orthopnea, PND, no palpitations, no syncope. PULMONARY: No shortness of breath, no cough, no hemoptysis. GASTROINTESTINAL: No diarrhea, no nausea, no vomiting, no abdominal pain. Normoactive bowel sounds. NEUROLOGICAL: headache- unrelieved by Tylenol, no weakness, no numbness. HEMATOLOGICAL: Denies any bleeding or petechiae. GENITOURINARY: Denies any burning micturition, frequency, or urgency. MUSCULOSKELETAL/RHEUMATOLOGICAL: Increased right leg pain upon standing, controlled at rest ENDOCRINE: Denies any polyuria or polydipsia. PSYCHIATRIC: No anxiety, no depression The rest of the 14 point review of systems is negative Active Medications Generic Name Dose Route Start Last Admin Trade Name Freq PRN Reason Stop Dose Admin Acetaminophen 650 mg 08/15/18 19:12 08/18/18 17:12 Tylenol Tab PO 650 mg Q6HR PRN Administration Mild Pain or Fever > 100.5 Acetaminophen/Codeine Phosphate 2 each 08/18/18 11:07 Tylenol #3 PO Q6HR PRN Moderate Pain Benzonatate 200 mg 08/18/18 11:05 Tessalon Perles PO TID PRN Cough Clotrimazole 1 applic 08/16/18 21:00 08/18/18 11:09 Lotrimin Cream TOPICAL 1 applic BID ANNEL Administration Fluconazole 200 mg 08/16/18 09:00 08/18/18 09:35 Diflucan PO 200 mg DAILY ANNEL Administration Heparin Sodium (Porcine) 5,000 unit 08/16/18 09:00 08/18/18 09:35 Heparin SQ 5,000 unit Q12HR ANNEL Administration Hydromorphone HCl 0.5 mg 08/17/18 12:39 08/17/18 22:23 Dilaudid IVP 0.5 mg Q4HR PRN Administration Pain Ceftriaxone Sodium 2,000 mg/ 100 mls @ 100 mls/hr 08/16/18 10:00 08/18/18 09: 32 Sodium Chloride IVPB 100 mls/hr Q24HR ANNEL Administration Ibuprofen 400 mg 08/15/18 19:12 08/17/18 22:23 Motrin PO 400 mg Q6HR PRN Administration Mild Pain or Fever > 100.5 Metoclopramide HCl 5 mg 08/17/18 14:29 08/17/18 15:02 Reglan IVP 5 mg Q6HR PRN Administration Nausea And Vomiting Miscellaneous Information 1 each 08/16/18 20:22 Magnesium Per Protocol MISCELLANE DAILY PRN Per Protocol Protocol Miscellaneous Information 1 each 08/17/18 06:46 Potassium Per Protocol MISCELLANE DAILY PRN Per Protocol Protocol Miscellaneous Information 1 each 08/18/18 06:53 Potassium Per Protocol MISCELLANE DAILY PRN Per Protocol Protocol Naloxone HCl 0.2 mg 08/15/18 19:12 Narcan IV Q2M PRN Opioid Reversal Ondansetron HCl 4 mg 08/17/18 11:55 08/17/18 12:17 Zofran IVP 4 mg Q6HR PRN Administration Nausea And Vomiting Pantoprazole Sodium 40 mg 08/19/18 07:30 Protonix PO [facility] Tramadol HCl 50 mg 08/16/18 15:58 08/18/18 17:11 Ultram PO 50 mg QID PRN Administration MODERATE Pain Objective - Vital Signs Vital signs: Vital Signs Temp 99.0 F 08/18/18 04:00 Pulse 100 08/18/18 04:00 Resp 12 08/18/18 04:00 BP 119/72 08/18/18 04:00 Pulse Ox 96 08/18/18 08:29 Intake & Output 08/17/18 08/18/18 08/18/18 18:59 06:59 18:59 Intake Total 560 120 Output Total 1300 300 Balance -740 -180 Weight 76 kg Intake: IV 200 0 Sodium Chloride 0.9% 1, 200 0 000 ml @ 100 mls/hr IV . Q10H [facility] Rx#:[id number] Intake, IV Titration 160 Amount cefTRIAXone 2,000 mg In 160 Sodium Chloride 0.9% 100 ml @ 100 mls/hr IVPB Q24HR [facility] Rx#:[id number] Oral 200 120 Output: Urine 1300 300 Other: # Voids 1 1 - Exam PHYSICAL EXAM: VITAL SIGNS: As above GENERAL: Sitting up in bed, no acute distress HEENT: Conjunctivae normal. eyes normal. Oral mucosa moist NECK: No JVD. No thyroid enlargement. No LNs. CARDIOVASCULAR: S1, S2 muffled. No murmur, rub or gallop RESPIRATION: Respiratory effort normal, Breath sounds diminished in the bases. No rhonchi, no crackles, no wheezes. ABDOMEN: Soft, nontender . No guarding. no masses palpable. Bowel sounds heard. LEGS: Continued Improvment of swelling,edema,erythema, with decreasing diffuse tenderness of right leg from groin to foot.warm .positive pulses. PSYCHIATRY: Alert and oriented -3, mood and affect normal. NERVOUS SYSTEM: Cranial N 2-12 grossly normal. Moves all 4 limbs. Diffuse weakness No focal deficits. Skin: no ulcer no rash. Improving Left upper extremity edema-infiltrated IV. Lymphatic system. No LN neck, axilla. Microbiology 08/15/18 16:32 Blood Blood Culture Gram Stain - Final 08/15/18 16:32 Blood Blood Culture - Final Strep pyogenes (grp a) 08/15/18 16:32 Blood Blood Culture Gram Stain - Final 08/15/18 16:32 Blood Blood Culture - Final Strep pyogenes (grp a) 08/16/18 22:25 Blood Blood Culture - Preliminary No Growth after 48 hours 08/16/18 19:00 Skin Scrapings Skin Fungal Culture - Preliminary 08/15/18 16:12 Urine,Clean Catch Urine Culture - Final 08/15/18 16:32 Blood Blood Culture - Final - Labs CBC & Chem 7: 08/19/18 04:53 08/19/18 04:53 Labs: Abnormal Lab Results - Last 24 Hours (Table) 08/18/18 08/18/18 Range/Units 04:49 04:49 RBC 3.12 L (3.80-5.40) m/uL Hgb 10.0 L (11.4-16.0) gm/dL Hct 30.7 L (34.0-46.0) % Lymphocytes # 0.4 L (1.0-4.8) k/uL Sodium 135 L (137-145) mmol/L Chloride 109 H (98-107) mmol/L Carbon Dioxide 21 L (22-30) mmol/L Calcium 7.3 L (8.4-10.2) mg/dL Magnesium 2.4 H (1.6-2.3) mg/dL Microbiology - Last 24 Hours (Table) 08/15/18 16:32 Blood Culture Gram Stain - Preliminary Blood Blood Culture - Preliminary Strep pyogenes (grp a) 08/16/18 22:25 Blood Culture - Preliminary Blood No Growth after 24 hours 08/15/18 16:32 Blood Culture Gram Stain - Preliminary Blood Blood Culture - Preliminary Strep pyogenes (grp a) Assessment and Plan Assessment: -Acute cellulitis, acute lymphangitis of the right leg with severe sepsis, septic shock -Acute hypoxic respiratory failure secondary to the above -Acute bacteremia secondary to Streptococcus pyogenes group a, most likely related to right lower extremity cellulitis - hypotension secondary to sepsis, status post multiple fluid boluses, resolved -Fungal infection ,interdigital -History of recurrent cellulitis of the right side -History of previous multiple sepsis -Ongoing nicotine dependence -History of migraines Plan: Continue on current medication regime ,monitoring and symptomatic treatment. Maintain IV antibiotics as per infectious disease. Tylenol No. 3 added to med regime for headache not controlled with Tylenol .Smoking cessation readdressed .MedSurg overflow, awaiting bed. Prognosis guarded given multiple complex medical issues. The impression and plan of care has been dictated as directed. : I performed a history and examination of this patient, discussed the same with the dictator. I agree with the dictator's note ,documented as a scribe. Any additional findings or plans will be noted.
[2018-08-20 08:31] VITALS: RESP 16
[2018-08-20] MEDS: FLUCONAZOLE 100 MG TAB PO SCH (08:41)
[2018-08-20] MEDS: cefTRIAXone 2,000 MG in SODIUM CHLORIDE 0.9% 100 ML IVPB SCH (08:41)
[2018-08-20] MEDS: PANTOPRAZOLE 40 MG TABLET PO SCH (08:41)
[2018-08-20] MEDS: HEPARIN SODIUM,PORCINE 5,000 UNIT/ML 1 ML VIAL SQ SCH (08:41)
[2018-08-20] MEDS: CLOTRIMAZOLE 1% CREAM 15 GM TUBE TOPICAL SCH (08:42)
[2018-08-20] MEDS: traMADol 50 MG TAB PO PRN (08:49)
[2018-08-20 09:29] LABS: Basophils % (A) 0 %; Eosinophils # (A) 0.2 k/uL (0-0.7); Eosinophils % (A) 3 %; HCT 33.6 % (34.0-46.0); Lymphocytes # (A) 0.7 k/uL (1.0-4.8); Lymphocytes % (A) 14 %; MCH 31.7 pg (25.0-35.0); MCHC 32.8 g/dL (31.0-37.0); MCV 96.5 fL (80.0-100.0); Mean Platelet Volume 6.8; Monocytes # (A) 0.4 k/uL (0-1.0); Monocytes % (A) 7 %; Neutrophils # (A) 3.7 k/uL (1.3-7.7); Neutrophils % (A) 73 %; Platelet Count 305 k/uL (150-450); RBC 3.48 m/uL (3.80-5.40); RDW 13.4 % (11.5-15.5)
[2018-08-20 09:44] LABS: Anion Gap 5 mmol/L; Blood Urea Nitrogen 5 mg/dL (7-17); Calcium 8.7 mg/dL (8.4-10.2); Carbon Dioxide 27 mmol/L (22-30); Chloride 108 mmol/L (98-107); Glucose 94 mg/dL (74-99); Potassium 4.2 mmol/L (3.5-5.1); Sodium 140 mmol/L (137-145)
[2018-08-20 16:02] VITALS: BP 124/74; PULSE 83; TEMP 98.3
--- NOTE | 2018-08-20 18:22 | P.PN ---
Subjective Progress Note Date: 08/19/18 Progress note being dictated for Dr. Ambrose. Interval history: This a 38-year-old female admitted with acute cellulitis of the right leg, severe sepsis, septic shock, hypotension and multiple other medical issues. Maintained on broad-spectrum IV antibiotics as per infectious disease. T-max 102.7,normal WBC. Chest x-ray reporting progressive bilateral consolidation/pleural effusion, fluid overload, central vascular congestion. Received a dose of Lasix IV push. Maintaining O2 sats of 96% on 3 L nasal cannula. Improving diet intake. 08/18/18 MedSurg overflow. Complains of headache; attributed to infection. Receiving potassium supplements. Right leg edema and pain continues to improve. Maintained on Diflucan, Rocephin.Fevers improving, T-max 100, WBC 7.4. O2 sat 92% on room air. 08/19/18 maintained on IV antibiotics with continued improvement in right leg edema, tenderness. Previously unable to tolerate weightbearing of the right leg , but today less pain with standing. Afebrile currently, T-max 100. Headache improving. Cultures negative. Objective - Vital Signs Vital signs: Vital Signs Temp 98.8 F 08/19/18 17:22 Pulse 82 08/19/18 17:22 Resp 16 08/19/18 17:22 BP 129/82 08/19/18 17:22 Pulse Ox 92 L 08/19/18 17:22 Intake & Output 08/19/18 08/19/18 08/20/18 06:59 18:59 06:59 Intake Total 240 340 Output Total 750 1140 Balance -510 -800 Weight 69.4 kg Intake: Intake, IV Titration 0 100 Amount cefTRIAXone 2,000 mg In 0 100 Sodium Chloride 0.9% 100 ml @ 100 mls/hr IVPB Q24HR ANNEL Rx#:[id number] Oral 240 240 Output: Urine 750 1140 Other: # Voids 0 0 - Exam VITAL SIGNS: As above GENERAL: Sitting up in chair, no acute distress HEENT: Conjunctivae normal. eyes normal. Oral mucosa moist NECK: No JVD. No thyroid enlargement. No LNs. CARDIOVASCULAR: S1, S2 muffled. No murmur, rub or gallop RESPIRATION: Respiratory effort normal, Breath sounds diminished in the bases. No rhonchi, no crackles, no wheezes. ABDOMEN: Soft, nontender . No guarding. no masses palpable. Bowel sounds heard. LEGS: Decreased swelling,edema,erythema, with mild tenderness of right leg from groin to foot.warm .positive pulses. Right foot with Skin break between the toes/great toe PSYCHIATRY: Alert and oriented -3, mood and affect normal. NERVOUS SYSTEM: Cranial N 2-12 grossly normal. Moves all 4 limbs. Diffuse weakness No focal deficits. Skin: no ulcer no rash. - Labs CBC & Chem 7: 08/20/18 08:36 08/20/18 08:36 Labs: Abnormal Lab Results - Last 24 Hours (Table) 08/19/18 08/19/18 Range/Units 04:53 04:53 RBC 3.09 L (3.80-5.40) m/uL Hgb 9.9 L (11.4-16.0) gm/dL Hct 29.9 L (34.0-46.0) % Lymphocytes # 0.4 L (1.0-4.8) k/uL Chloride 109 H (98-107) mmol/L Calcium 7.9 L (8.4-10.2) mg/dL Microbiology - Last 24 Hours (Table) 08/15/18 16:32 Blood Culture Gram Stain - Final Blood Blood Culture - Final Strep pyogenes (grp a) 08/15/18 16:32 Blood Culture Gram Stain - Final Blood Blood Culture - Final Strep pyogenes (grp a) 08/16/18 22:25 Blood Culture - Preliminary Blood No Growth after 48 hours Assessment and Plan Assessment: -Acute cellulitis, acute lymphangitis of the right leg with severe sepsis, septic shock -Acute hypoxic respiratory failure secondary to the above -Acute bacteremia secondary to Streptococcus pyogenes group a, most likely related to right lower extremity cellulitis - hypotension secondary to sepsis, status post multiple fluid boluses, resolved -Fungal infection ,interdigital -History of recurrent cellulitis of the right side -History of previous multiple sepsis -Ongoing nicotine dependence -History of migraines Plan: Continue on current medication regime , Lotrimin cream ,monitoring and symptomatic treatment. MedSurg overflow bed pending. Maintain IV antibiotics as per infectious disease. Repeat blood cultures pending. Prognosis guarded given multiple complex medical issues. Discharge planning in progress for tomorrow. The impression and plan of care has been dictated as directed. : I performed a history and examination of this patient, discussed the same with the dictator. I agree with the dictator's note ,documented as a scribe. Any additional findings or plans will be noted.
--- NOTE | 2018-08-20 18:28 | P.DS ---
Providers Date of admission: 08/16/18 00:00 Expected date of discharge: 08/20/18 Attending physician: Jessa Linda Consults: 08/15/18 19:12 Consult Physician Stat Consulting Provider: Austin Coles Consult Reason/Comments: Recurrent cellulitis right lower leg Do you want consulting provider notified?: Yes 08/16/18 00:13 Consult Physician Routine Consulting Provider: Leda Stephens Consult Reason/Comments: Cellulitis left leg Do you want consulting provider notified?: Yes Primary care physician: Li Song Hospital Course: Final Diagnoses: -Acute cellulitis, acute lymphangitis of the right leg with severe sepsis, septic shock -Acute hypoxic respiratory failure secondary to the above -Acute bacteremia secondary to Streptococcus pyogenes group a, most likely related to right lower extremity cellulitis - hypotension secondary to sepsis, status post multiple fluid boluses, resolved -Fungal infection ,interdigital -History of recurrent cellulitis of the right side -History of previous multiple sepsis -Ongoing nicotine dependence -History of migraines Hospital course:his a 38-year-old female admitted with acute cellulitis of the right leg, severe sepsis, septic shock, hypotension and multiple other medical issues. Maintained on broad-spectrum IV antibiotics as per infectious disease. T-max 102.7,normal WBC. Chest x-ray reporting progressive bilateral consolidation/pleural effusion, fluid overload, central vascular congestion. Received a dose of Lasix IV push. Maintaining O2 sats of 96% on 3 L nasal cannula. Improving diet intake. Evaluated by both pulmonary, infectious disease. Significant clinical improvement. Patient has been cleared by all consults for discharge. Patient is being discharged home in a stable condition with guarded prognosis. Microbiology 08/15/18 16:32 Blood Blood Culture Gram Stain - Final 08/15/18 16:32 Blood Blood Culture - Final Strep pyogenes (grp a) 08/16/18 22:25 Blood Blood Culture - Preliminary No Growth after 72 hours 08/15/18 16:32 Blood Blood Culture Gram Stain - Final 08/15/18 16:32 Blood Blood Culture - Final Strep pyogenes (grp a) 08/16/18 19:00 Skin Scrapings Skin Fungal Culture - Preliminary 08/15/18 16:12 Urine,Clean Catch Urine Culture - Final 08/15/18 16:32 Blood Blood Culture - Final Exam GENERAL: Alert and oriented 3,,no acute distress CARDIOVASCULAR: S1, S2 muffled. No murmur, rub or gallop RESPIRATION: Respiratory effort normal, Breath sounds diminished in the bases. ABDOMEN: Soft, nontender . No guarding. no masses palpable. Bowel sounds heard. LEGS: Decreased swelling,edema,erythema, with mild tenderness of right leg from groin to foot.warm .positive pulses. NERVOUS SYSTEM: Cranial N 2-12 grossly normal. Moves all 4 limbs. No focal deficits. The impression and plan of care has been dictated as directed. .: I performed a history and examination of this patient, discussed the same with the dictator. I agree with the dictator's note ,documented as a scribe. Any additional findings or plans will be noted. Time taken: 35 minutes Patient Condition at Discharge: Stable Plan - Discharge Summary New Discharge Prescriptions: New Acetaminophen Tab [Tylenol] 650 mg PO Q6HR PRN tab PRN Reason: Mild Pain Or Fever > 100.5 Clotrimazole Cream [Lotrimin Cream] 1 applic TOPICAL BID #1 tube Ibuprofen [Motrin] 400 mg PO Q6HR PRN #20 tab PRN Reason: Mild Pain Or Fever > 100.5 Pantoprazole [Protonix] 40 mg PO AC-BRKFST #15 tablet. Cefuroxime Axetil [Cefuroxime] 500 mg PO BID #42 tab Discharge Medication List Acetaminophen Tab [Tylenol] 650 mg PO Q6HR PRN tab 08/20/18 [Rx] Cefuroxime Axetil [Cefuroxime] 500 mg PO BID #42 tab 08/20/18 [Rx] Clotrimazole Cream [Lotrimin Cream] 1 applic TOPICAL BID #1 tube 08/20/18 [Rx] Ibuprofen [Motrin] 400 mg PO Q6HR PRN #20 tab 08/20/18 [Rx] Pantoprazole [Protonix] 40 mg PO AC-BRKFST #15 tablet. 08/20/18 [Rx] Follow up Appointment(s)/Referral(s): Duncan Jefferson MD [Primary Care Provider] - 08/24/18 9:50 am Ambulatory/Diagnostic Orders: Complete Blood Count w/diff [LAB.AMB] Time Frame: 3 Days, Location: None Selected Patient Instructions/Handouts: Cellulitis (DC) Discharge Disposition: HOME SELF-CARE
== END 2018-08-20 17:26 | disposition home or self-care (01) | DRG 871 ==
LOC: EC 16:02 → 2SICU 08-16 → 4MS4W 08-19 17:27
PROVIDERS: ADMIT Hospitalist; ATTEND Hospitalist
DX: A40.0 Sepsis due to streptococcus, group A (principal); R65.21 Severe sepsis with septic shock; J96.01 Acute respiratory failure with hypoxia; L03.115 Cellulitis of right lower limb; E87.2 Acidosis; J90 Pleural effusion, not elsewhere classified; E87.70 Fluid overload, unspecified; E83.42 Hypomagnesemia; R13.10 Dysphagia, unspecified; B35.3 Tinea pedis; D64.9 Anemia, unspecified; R49.0 Dysphonia; M19.90 Unspecified osteoarthritis, unspecified site; G43.909 Migraine, unspecified, not intractable, without status migrainosus; K21.9 Gastro-esophageal reflux disease without esophagitis; F17.200 Nicotine dependence, unspecified, uncomplicated; Z71.6 Tobacco abuse counseling; Z85.41 Personal history of malignant neoplasm of cervix uteri; Z86.19 Personal history of other infectious and parasitic diseases; Z98.891 History of uterine scar from previous surgery; Z83.3 Family history of diabetes mellitus; Z82.49 Family history of ischemic heart disease and other diseases of the circulatory system
CPT/HCPCS: 36415; 71045; 71046; 80048; 80053; 81001; 83605; 83735; 85025; 85610; 85730; 87040; 87077; 87086; 87101; 87150; 87186; 93005; 94760; 96361; 96365; 96366; 96368; 96372; 96375; 99285

== ENCOUNTER 2018-08-21 22:59 | Emergency (ER) | payer OTHER ==
[2018-08-22] MEDS ORDERED: SODIUM CHLORIDE 0.9% 1,000 ML IV STA (01:58)
[2018-08-22 02:12] LABS: HCT 38.9 % (34.0-46.0); HGB 12.8 gm/dL (11.4-16.0); MCH 31.4 pg (25.0-35.0); MCHC 32.8 g/dL (31.0-37.0); MCV 95.6 fL (80.0-100.0); Mean Platelet Volume 6.9; Platelet Count 400 k/uL (150-450); RBC 4.08 m/uL (3.80-5.40); RDW 13.8 % (11.5-15.5); WBC 7.9 k/uL (3.8-10.6)
[2018-08-22 02:17] LABS: ALT 66 U/L (9-52); AST 60 U/L (14-36); Albumin 3.9 g/dL (3.5-5.0); Alkaline Phosphatase 157 U/L (38-126); Anion Gap 8 mmol/L; Blood Urea Nitrogen 11 mg/dL (7-17); Calcium 9.6 mg/dL (8.4-10.2); Carbon Dioxide 26 mmol/L (22-30); Chloride 107 mmol/L (98-107); Glucose 100 mg/dL (74-99); Potassium 4.2 mmol/L (3.5-5.1); Sodium 141 mmol/L (137-145); Total Bilirubin 0.3 mg/dL (0.2-1.3); Total Protein 6.8 g/dL (6.3-8.2)
[2018-08-22] MEDS ORDERED: AZITHROMYCIN 500 MG TAB PO STA (03:56)
--- NOTE | 2018-08-22 03:57 | ED ---
General Adult HPI - General Chief complaint: Extremity Problem,Nontraumatic Stated complaint: Recheck, Hx Cellulitis Time Seen by Provider: 08/22/18 01:10 Source: patient, RN notes reviewed Mode of arrival: ambulatory Limitations: no limitations - History of Present Illness Initial comments: 38-year-old female With a past medical history of cellulitis, cervical cancer presents to the emergency department for a chief complaint of cellulitis. Patient states she was just discharged from the hospital yesterday for cellulitis. She states she noticed some erythema on her right lower leg earlier today. Patient states she has not sure if this was there when she was discharged. She states she does not think it is getting worse but cannot be sure at this time. Patient denies fevers or chills. Patient states she has been feeling well since discharge. She denies any nausea or vomiting. Patient has no other complaints at this time including shortness of breath, chest pain, abdominal pain, nausea or vomiting, headache, or visual changes. - Related Data Previous Rx's Medication Instructions Recorded Acetaminophen Tab [Tylenol] 650 mg PO Q6HR PRN tab 08/20/18 Cefuroxime Axetil [Cefuroxime] 500 mg PO BID #42 tab 08/20/18 Clotrimazole Cream [Lotrimin Cream] 1 applic TOPICAL BID #1 tube 08/20/18 Ibuprofen [Motrin] 400 mg PO Q6HR PRN #20 tab 08/20/18 Pantoprazole [Protonix] 40 mg PO AC-BRKFST #15 tablet. 08/20/18 Azithromycin [Zithromax Z-pack] 250 mg PO DIRECTED #6 tab 08/22/18 Allergies Allergy/AdvReac Type Severity Reaction Status Date / Time No Known Allergies Allergy Verified 08/21/18 23:32 Review of Systems ROS Statement: Those systems with pertinent positive or pertinent negative responses have been documented in the HPI. ROS Other: All systems not noted in ROS Statement are negative. Past Medical History Past Medical History: Cancer, Skin Disorder Additional Past Medical History / Comment(s): migraines, hoarse voice and diff swallowing-recent choking, dry skin on foot, hx cellulitis, anemia, hx cervical cancer History of Any Multi-Drug Resistant Organisms: None Reported Past Surgical History: Section, Orthopedic Surgery Additional Past Surgical History / Comment(s): LEEP procedure, left knee arthroscopy, oral surgery Past Anesthesia/Blood Transfusion Reactions: Previous Problems w/ Anesthesia Additional Past Anesthesia/Blood Transfusion Reaction / Comment(s): spinal anesthesia for C/S-"stopped breathing/paralyzed lungs" Past Psychological History: No Psychological Hx Reported Smoking Status: Current some day smoker Past Alcohol Use History: None Reported Past Drug Use History: None Reported - Past Family History Father Family Medical History: Diabetes Mellitus, Hypertension Mother Family Medical History: No Reported History General Exam Limitations: no limitations General appearance: alert, in no apparent distress Head exam: Present: atraumatic, normocephalic, normal inspection Eye exam: Present: normal appearance, PERRL, EOMI. Absent: scleral icterus, conjunctival injection, periorbital swelling ENT exam: Present: normal exam, mucous membranes moist Neck exam: Present: normal inspection, full ROM. Absent: tenderness, meningismus, lymphadenopathy Respiratory exam: Present: normal lung sounds bilaterally. Absent: respiratory distress, wheezes, rales, rhonchi, stridor Cardiovascular Exam: Present: regular rate, normal rhythm, normal heart sounds. Absent: systolic murmur, diastolic murmur, rubs, gallop, clicks Extremities exam: Present: full ROM (Full range of motion of the right ankle), normal capillary refill (Capillary refill less than 2 seconds of the right ankle ), other (Patient does have some mild nonpitting edema noted of the right distal lower leg. Minimal 5 cm x 5 cm area of erythema. Sensation intact in the right lower extremity). Absent: tenderness (No tenderness to the right lower leg), calf tenderness (No significant calf tenderness, negative Homans sign) Neurological exam: Present: alert, oriented X3, CN II-XII intact Psychiatric exam: Present: normal affect, normal mood Course Vital Signs 08/21/18 08/22/18 23:04 00:06 Temperature 98.7 F Pulse Rate 97 74 Respiratory 16 16 Rate Blood Pressure 149/86 134/70 O2 Sat by Pulse 100 98 Oximetry Medical Decision Making - Medical Decision Making 38-year-old female presents to the emergency department for a chief complaint of possible right lower extremity cellulitis. Patient states she was discharged for this yesterday and is not sure if that erythema is new. There is a small 5 x 5 cm area of erythema with moderate edema noted of the circumferential distal right lower extremity. Patient states this edema has been there since discharge. Reports from the last admission were reviewed in detail. Vitals are within acceptable limits in the emergency department. CBC and CMP are unremarkable. White count is 7.9. Lactic 0.7. Patient does not meet sepsis criteria. Discussed with patient that at this point we could admit her to observation or add another antibiotic. Patient states she would rather add another antibiotic and monitor. I did review culture results with Dr. Carbajal and patient will be given azithromycin as this was sensitive. She will continue to take cefuroxime which she is currently taking at home. Area of erythema was marked and patient will monitor to see if this worsens. She will return here if she has any worsening symptoms whatsoever which she agrees with. - Lab Data Result diagrams: 08/22/18 01:59 08/22/18 01:59 Lab Results 08/22/18 08/22/18 08/22/18 Range/Units 01:59 01:59 01:59 WBC 7.9 (3.8-10.6) k/uL RBC 4.08 (3.80-5.40) m/uL Hgb 12.8 (11.4-16.0) gm/dL Hct 38.9 (34.0-46.0) % MCV 95.6 (80.0-100.0) fL MCH 31.4 (25.0-35.0) pg MCHC 32.8 (31.0-37.0) g/dL RDW 13.8 (11.5-15.5) % Plt Count 400 (150-450) k/uL Sodium 141 (137-145) mmol/L Potassium 4.2 (3.5-5.1) mmol/L Chloride 107 (98-107) mmol/L Carbon Dioxide 26 (22-30) mmol/L Anion Gap 8 mmol/L BUN 11 (7-17) mg/dL Creatinine 0.83 (0.52-1.04) mg/dL Est GFR (CKD-EPI)AfAm >90 (>60 ml/min/1.73 sqM) Est GFR (CKD-EPI)NonAf 90 (>60 ml/min/1.73 sqM) Glucose 100 H (74-99) mg/dL Plasma Lactic Acid Félix 0.7 (0.7-2.0) mmol/L Calcium 9.6 (8.4-10.2) mg/dL Total Bilirubin 0.3 (0.2-1.3) mg/dL AST 60 H (14-36) U/L ALT 66 H (9-52) U/L Alkaline Phosphatase 157 H (38-126) U/L Total Protein 6.8 (6.3-8.2) g/dL Albumin 3.9 (3.5-5.0) g/dL Disposition Clinical Impression: Cellulitis Disposition: HOME SELF-CARE Condition: Good Instructions: Cellulitis (ED) Additional Instructions: Please take antibiotic as directed in addition to antibiotic already given. Please follow-up with primary care in 1-2 days. Monitor for worsening symptoms and return immediately if these occur. Prescriptions: Azithromycin [Zithromax Z-pack] 250 mg PO DIRECTED #6 tab Is patient prescribed a controlled substance at d/c from ED?: No Referrals: Duncan Jefferson MD [Primary Care Provider] - 1-2 days Time of Disposition: 03:55
[2018-08-22 03:59] LABS: Band Neutrophils % 5 %; Eosinophils # (M) 0.24 k/uL (0-0.7); Lymphocytes # (M) 1.26 k/uL (1.0-4.8); Metamyelocytes # (M) 0.47 k/uL (0); Metamyelocytes % 6 %; Neutrophils % (M) 65 %; Nucleated Red Blood Cells 0 /100 WBC (0-0); Total Cells Counted 100
[2018-08-22 04:09] VITALS: BP 140/75; PULSE 76; RESP 18; TEMP 98.6
== END 2018-08-22 04:09 | disposition home or self-care (01) ==
LOC: EC 22:59
DX: L03.115 Cellulitis of right lower limb (principal); Z85.41 Personal history of malignant neoplasm of cervix uteri; F17.200 Nicotine dependence, unspecified, uncomplicated
CPT/HCPCS: 36415; 80053; 83605; 85025; 87040; 96360; 96361; 99283

== ENCOUNTER → 2018-08-26 | Outpatient (CLI) | payer OTHER ==
[2018-08-26 11:03] LABS: Basophils % (A) 0 %; Eosinophils # (A) 0.1 k/uL (0-0.7); Eosinophils % (A) 2 %; HCT 39.6 % (34.0-46.0); HGB 12.9 gm/dL (11.4-16.0); Lymphocytes # (A) 1.1 k/uL (1.0-4.8); Lymphocytes % (A) 13 %; MCH 31.6 pg (25.0-35.0); MCHC 32.5 g/dL (31.0-37.0); MCV 97.3 fL (80.0-100.0); Mean Platelet Volume 6.6; Monocytes # (A) 0.5 k/uL (0-1.0); Monocytes % (A) 5 %; Neutrophils # (A) 6.7 k/uL (1.3-7.7); Neutrophils % (A) 78 %; Platelet Count 576 k/uL (150-450); RBC 4.07 m/uL (3.80-5.40); WBC 8.5 k/uL (3.8-10.6)
[2018-08-26 16:29] LABS: Hepatitis A Antibody IgM Non-Reactive (Non-Reactive); Hepatitis B Core IgM Non-Reactive (Non-Reactive)
[2018-08-26 16:30] LABS: Anion Gap 7.2 mmol/L (4.00-12.00); Calcium 9.3 mg/dL (8.7-10.3); Carbon Dioxide 26.8 mmol/L (21.6-31.8)
== END | disposition home or self-care (01) ==
LOC: LABWHC1 10:35
PROVIDERS: ATTEND Nurse Practitioner
DX: L03.90 Cellulitis, unspecified (principal); R78.81 Bacteremia; R52 Pain, unspecified
CPT/HCPCS: 36415; 80048; 80074; 85025

== ENCOUNTER → 2020-03-06 | Outpatient (CLI) | payer OTHER ==
--- NOTE | 2020-03-06 13:08 | US ---
LOWER EXTREMITY VENOUS INSUFFICIENCY CLINICAL HISTORY: M79.89 SWELLING OF GAYLE LIMBS. SIDE PERFORMED: Bilateral 1) Color flow is present and patency is documented in the following vessels. No DVT or SVT is noted . EIV Common Femoral Vein Deep Femoral Vein Femoral Vein Popliteal Vein Proximal Calf Veins Greater Saph Vein Upper Small Saph Vein 2) There is venous reflux noted at the following venous levels: Right- EIV, GSV Left- EIV, GSV, CFV IMPRESSION: Venous reflux as noted.
--- NOTE | 2020-03-08 13:42 | P.ARTDOP ---
Arterial Doppler LOWER EXTREMITY ARTERIAL DOPPLER: DATE OF SERVICE: 03/06/2020 Reason for study: Leg swelling. Doppler waveforms: Multiphasic bilaterally throughout. Pulse volume recording: []. Pressure gradients: None. Ankle-brachial indices: Greater than 1 bilaterally. Toe brachial indices: Normal on the right, normal on the left Impression: Normal study.
== END | disposition home or self-care (01) ==
LOC: RADUSWWP 11:53
PROVIDERS: ATTEND Family Medicine
DX: I87.2 Venous insufficiency (chronic) (peripheral) (principal)
CPT/HCPCS: 93922; 93970

== ENCOUNTER 2022-06-23 09:58 | Emergency (ER) | payer OTHER ==
[2022-06-23 10:07] VITALS: BP 121/60; PULSE 92; RESP 20; TEMP 98.2
[2022-06-23] MEDS ORDERED: SODIUM CHLORIDE 0.9% 1,000 ML IV STA (10:32)
[2022-06-23] MEDS ORDERED: KETOROLAC 15 MG/ML 1 ML VIAL IVP STA (10:32)
[2022-06-23 10:51] LABS: Basophils % (A) 0 %; Eosinophils # (A) 0.1 k/uL (0-0.7); Eosinophils % (A) 1 %; HCT 39.2 % (34.0-46.0); HGB 13.6 gm/dL (11.4-16.0); Lymphocytes # (A) 0.6 k/uL (1.0-4.8); Lymphocytes % (A) 12 %; MCH 32.8 pg (25.0-35.0); MCHC 34.6 g/dL (31.0-37.0); MCV 94.9 fL (80.0-100.0); Mean Platelet Volume 7.5; Monocytes # (A) 0.3 k/uL (0-1.0); Monocytes % (A) 5 %; Neutrophils # (A) 3.8 k/uL (1.3-7.7); Neutrophils % (A) 80 %; Platelet Count 312 k/uL (150-450); RBC 4.13 m/uL (3.80-5.40); RDW 12.6 % (11.5-15.5); WBC 4.7 k/uL (3.8-10.6)
[2022-06-23 11:14] LABS: ALT 12 U/L (4-34); AST 17 U/L (14-36); African American GFR (CKD) >90 (>60 ml/min/1.73 sqM); Albumin 4.1 g/dL (3.5-5.0); Alkaline Phosphatase 60 U/L (38-126); Anion Gap 9 mmol/L; Blood Urea Nitrogen 13 mg/dL (7-17); Calcium 8.7 mg/dL (8.4-10.2); Carbon Dioxide 24 mmol/L (22-30); Chloride 105 mmol/L (98-107); Glucose 93 mg/dL (74-99); Lipase 101 U/L (23-300); Non-African American GFR(CKD) >90 (>60 ml/min/1.73 sqM); Potassium 4.2 mmol/L (3.5-5.1); Sodium 138 mmol/L (137-145); Total Bilirubin 0.6 mg/dL (0.2-1.3); Total Protein 6.3 g/dL (6.3-8.2)
--- NOTE | 2022-06-23 11:42 | CT ---
EXAMINATION TYPE: CT abdomen pelvis w con DATE OF EXAM: 06/23/2022 HISTORY: Lower abdominal pain with known inguinal hernia per patient. CT DLP: 635.6mGycm Automated Exposure Control for Dose Reduction was Utilized. CONTRAST: CT scan of the abdomen and pelvis is performed without oral but with IV Contrast, patient injected wi th 100 mL of Isovue 300. COMPARISON: None FINDINGS: LUNG BASES: Mild bibasilar linear scarring and/or atelectasis. LIVER/GB: No significant abnormality is appreciated. PANCREAS: No significant abnormality is seen. SPLEEN: No significant abnormality is seen. ADRENALS: No significant abnormality is seen. KIDNEYS: Symmetric cortical medullary uptake and excretion without hydronephrosis seen bilaterally. C ircumaortic left renal vein which is normal variant. BOWEL: Suboptimal evaluation without enteric contrast. No suspicious small or large bowel dilatation is seen. Appendix not dilated from base of cecum in the right upper pelvis. UTERUS/ADNEXA: Anteverted slightly bulky uterus raises concern for underlying fibroids. Left ovary sherwood s rim hyperintense 1.7 cm hypodense lesion consistent with corpus luteal cyst axial image 67. Right o vary symmetric and normal in size near axial image 59. [id number] amount of free fluid in the pelvis axial image 64. LYMPH NODES: No greater than 1cm abdominal or pelvic lymph nodes are appreciated. OSSEOUS STRUCTURES: Facet arthropathy lower lumbar levels. OTHER: Slightly prominent bilateral groin lymph nodes right more prominent than left without definiti ve abnormal greater than 1.0 cm adenopathy. No significant groin hernia. IMPRESSION: Heterogeneous bulky uterus is nonspecific, correlate clinically. Possible diffuse fibroid disease. [id number] amount of free fluid in the posterior pelvis is nonspecific finding. No g roin hernia or abnormal adenopathy. No acute findings clearly evident.
[2022-06-23 12:31] LABS: Appearance,Urine Clear (Clear); Bacteria,Urine Rare /hpf; Bilirubin,Urine Negative (Negative); Blood,Urine Moderate (Negative); Color,Urine Yellow; Glucose,Urine (UA) Negative (Negative); Ketones,Urine Negative (Negative); Leukocyte Esterase,Urine Negative (Negative); Nitrite,Urine Negative (Negative); Protein,Urine Negative (Negative); RBC,Urine 12 /hpf (0-5); Specific Gravity,Urine 1.019 (1.001-1.035); Squamous Epithelial Cell,Urine 1 /hpf (0-4); Urobilinogen,Urine <2.0 mg/dL (<2.0); WBC,Urine <1 /hpf (0-5)
[2022-06-23] MEDS ORDERED: ACET/COD 300 MG/30 MG STARTER PACK 6 TAB BTL PO STA (12:45)
--- NOTE | 2022-06-23 12:50 | ED ---
Abdominal Pain HPI - General Chief Complaint: Abdominal Pain Stated Complaint: Hernia Time Seen by Provider: 06/23/22 10:10 Source: patient, RN notes reviewed Mode of arrival: ambulatory Limitations: no limitations - History of Present Illness Initial Comments: This a 42-year-old female presents to emergency department with chief complaint of abdominal pain. Patient states she is scheduled for surgery with Dr. germain Patient states that she feels a inguinal hernia is getting worse. Patient states she has lower abdominal pain, pressure, bloating. Patient denies change in bowel habits no dysuria no hematuria denies chest . - Related Data Previous Rx's Medication Instructions Recorded Acetaminophen Tab [Tylenol] 650 mg PO Q6HR PRN tab 08/20/18 Clotrimazole Cream [Lotrimin Cream] 1 applic TOPICAL BID #1 tube 08/20/18 Ibuprofen [Motrin] 400 mg PO Q6HR PRN #20 tab 08/20/18 Pantoprazole [Protonix] 40 mg PO AC-BRKFST #15 tablet. 08/20/18 cefUROXime axetiL [Cefuroxime] 500 mg PO BID #42 tab 08/20/18 Azithromycin [Zithromax Z-pack (6 250 mg PO DIRECTED #6 tab 08/22/18 tabs)] Ibuprofen [Motrin] 600 mg PO Q8HR PRN #20 tab 06/23/22 Allergies Allergy/AdvReac Type Severity Reaction Status Date / Time No Known Allergies Allergy Verified 06/23/22 10:07 Review of Systems ROS Statement: Those systems with pertinent positive or pertinent negative responses have been documented in the HPI. ROS Other: All systems not noted in ROS Statement are negative. Past Medical History Past Medical History: Cancer, Skin Disorder Additional Past Medical History / Comment(s): migraines, hoarse voice and diff swallowing-recent choking, dry skin on foot, hx cellulitis, anemia, hx cervical cancer History of Any Multi-Drug Resistant Organisms: None Reported Past Surgical History: Section, Orthopedic Surgery Additional Past Surgical History / Comment(s): LEEP procedure, left knee arthroscopy, oral surgery Past Anesthesia/Blood Transfusion Reactions: Previous Problems w/ Anesthesia Additional Past Anesthesia/Blood Transfusion Reaction / Comment(s): spinal anesthesia for C/S-"stopped breathing/paralyzed lungs" Past Psychological History: No Psychological Hx Reported Smoking Status: Never smoker Past Alcohol Use History: None Reported Past Drug Use History: None Reported - Past Family History Father Family Medical History: Diabetes Mellitus, Hypertension Mother Family Medical History: No Reported History General Exam Limitations: no limitations General appearance: alert, in no apparent distress Head exam: Present: atraumatic, normocephalic, normal inspection Neck exam: Present: normal inspection. Absent: tenderness, meningismus, lymphadenopathy Respiratory exam: Present: normal lung sounds bilaterally. Absent: respiratory distress, wheezes, rales, rhonchi, stridor Cardiovascular Exam: Present: regular rate, normal rhythm, normal heart sounds. Absent: systolic murmur, diastolic murmur, rubs, gallop, clicks GI/Abdominal exam: Present: soft, tenderness, normal bowel sounds. Absent: distended, guarding, rebound, rigid Back exam: Absent: CVA tenderness (R), CVA tenderness (L) Neurological exam: Present: alert Skin exam: Present: warm, dry, intact, normal color. Absent: rash Course Vital Signs 06/23/22 10:05 Temperature 98.2 F Pulse Rate 92 Respiratory 20 Rate Blood Pressure 121/60 O2 Sat by Pulse 99 Oximetry Medical Decision Making - Medical Decision Making CT shows evidence of old uterus, fluid in the pelvis, ovarian cysts this may related to a ruptured ovarian cyst given the patient's symptoms. Patient does not have any other acute findings. Patient was discharged in stable condition return parameters were discussed. - Lab Data Result diagrams: 06/23/22 10:40 06/23/22 10:40 Lab Results 06/23/22 06/23/22 06/23/22 Range/Units 10:40 10:40 10:40 WBC 4.7 (3.8-10.6) k/uL RBC 4.13 (3.80-5.40) m/uL Hgb 13.6 (11.4-16.0) gm/dL Hct 39.2 (34.0-46.0) % MCV 94.9 (80.0-100.0) fL MCH 32.8 (25.0-35.0) pg MCHC 34.6 (31.0-37.0) g/dL RDW 12.6 (11.5-15.5) % Plt Count 312 (150-450) k/uL MPV 7.5 Neutrophils % 80 % Lymphocytes % 12 % Monocytes % 5 % Eosinophils % 1 % Basophils % 0 % Neutrophils # 3.8 (1.3-7.7) k/uL Lymphocytes # 0.6 L (1.0-4.8) k/uL Monocytes # 0.3 (0-1.0) k/uL Eosinophils # 0.1 (0-0.7) k/uL Basophils # 0.0 (0-0.2) k/uL Sodium 138 (137-145) mmol/L Potassium 4.2 (3.5-5.1) mmol/L Chloride 105 (98-107) mmol/L Carbon Dioxide 24 (22-30) mmol/L Anion Gap 9 mmol/L BUN 13 (7-17) mg/dL Creatinine 0.77 (0.52-1.04) mg/dL Est GFR (CKD-EPI)AfAm >90 (>60 ml/min/1.73 sqM) Est GFR (CKD-EPI)NonAf >90 (>60 ml/min/1.73 sqM) Glucose 93 (74-99) mg/dL Plasma Lactic Acid Félix 0.6 L (0.7-2.0) mmol/L Calcium 8.7 (8.4-10.2) mg/dL Total Bilirubin 0.6 (0.2-1.3) mg/dL AST 17 (14-36) U/L ALT 12 (4-34) U/L Alkaline Phosphatase 60 (38-126) U/L Total Protein 6.3 (6.3-8.2) g/dL Albumin 4.1 (3.5-5.0) g/dL Lipase 101 (23-300) U/L Urine Color Urine Appearance (Clear) Urine pH (5.0-8.0) Ur Specific [place] (1.001-1.035) Urine Protein (Negative) Urine Glucose (UA) (Negative) Urine Ketones (Negative) Urine Blood (Negative) Urine Nitrite (Negative) Urine Bilirubin (Negative) Urine Urobilinogen (<2.0) mg/dL Ur Leukocyte Esterase (Negative) Urine RBC (0-5) /hpf Urine WBC (0-5) /hpf Ur Squamous Epith Cells (0-4) /hpf Urine Bacteria (None) /hpf Urine HCG, Qual (Not Detectd) 10/23/22 10/23/22 Range/Units 10:40 10:40 WBC (3.8-10.6) k/uL RBC (3.80-5.40) m/uL Hgb (11.4-16.0) gm/dL Hct (34.0-46.0) % MCV (80.0-100.0) fL MCH (25.0-35.0) pg MCHC (31.0-37.0) g/dL RDW (11.5-15.5) % Plt Count (150-450) k/uL MPV Neutrophils % % Lymphocytes % % Monocytes % % Eosinophils % % Basophils % % Neutrophils # (1.3-7.7) k/uL Lymphocytes # (1.0-4.8) k/uL Monocytes # (0-1.0) k/uL Eosinophils # (0-0.7) k/uL Basophils # (0-0.2) k/uL Sodium (137-145) mmol/L Potassium (3.5-5.1) mmol/L Chloride (98-107) mmol/L Carbon Dioxide (22-30) mmol/L Anion Gap mmol/L BUN (7-17) mg/dL Creatinine (0.52-1.04) mg/dL Est GFR (CKD-EPI)AfAm (>60 ml/min/1.73 sqM) Est GFR (CKD-EPI)NonAf (>60 ml/min/1.73 sqM) Glucose (74-99) mg/dL Plasma Lactic Acid Félix (0.7-2.0) mmol/L Calcium (8.4-10.2) mg/dL Total Bilirubin (0.2-1.3) mg/dL AST (14-36) U/L ALT (4-34) U/L Alkaline Phosphatase (38-126) U/L Total Protein (6.3-8.2) g/dL Albumin (3.5-5.0) g/dL Lipase (23-300) U/L Urine Color Yellow Urine Appearance Clear (Clear) Urine pH 6.0 (5.0-8.0) Ur Specific [place] 1.019 (1.001-1.035) Urine Protein Negative (Negative) Urine Glucose (UA) Negative (Negative) Urine Ketones Negative (Negative) Urine Blood Moderate H (Negative) Urine Nitrite Negative (Negative) Urine Bilirubin Negative (Negative) Urine Urobilinogen <2.0 (<2.0) mg/dL Ur Leukocyte Esterase Negative (Negative) Urine RBC 12 H (0-5) /hpf Urine WBC <1 (0-5) /hpf Ur Squamous Epith Cells 1 (0-4) /hpf Urine Bacteria Rare H (None) /hpf Urine HCG, Qual Not Detected (Not Detectd) Disposition Clinical Impression: Abdominal pain Disposition: HOME SELF-CARE Condition: Stable Instructions (If sedation given, give patient instructions): Abdominal Pain (ED) Additional Instructions: Please return to the Emergency Department if symptoms worsen or any other concerns. Prescriptions: Ibuprofen [Motrin] 600 mg PO Q8HR PRN #20 tab PRN Reason: Pain Is patient prescribed a controlled substance at d/c from ED?: No Referrals: Bert Lomeli DO [Primary Care Provider] - 1-2 days Time of Disposition: 12:50
== END 2022-06-23 13:00 | disposition home or self-care (01) ==
LOC: EC 09:58
DX: R10.30 Lower abdominal pain, unspecified (principal); Z85.41 Personal history of malignant neoplasm of cervix uteri
CPT/HCPCS: 96361 ×2; 96374 ×2; 99284 ×2; 36415; 80053; 83605; 83690; 85025; 81001; 81025; 74177; J1885; Q9967

== ENCOUNTER → 2022-07-10 | Outpatient (CLI) | payer OTHER ==
[2022-07-10 15:19] LABS: Basophils # (A) 0.01 X 10*3/uL (0.00-0.10); Basophils % (A) 0.2 %; Eosinophils # (A) 0.09 X 10*3/uL (0.04-0.35); Eosinophils % (A) 1.5 %; HCT 36.6 % (37.2-46.3); HGB 12.2 g/dL (12.0-15.0); Immature Grans, Automated 0.7 %; Lymphocytes # (A) 0.55 X 10*3/uL (0.90-5.00); Lymphocytes % (A) 9.4 %; MCH 32.4 pg (27.0-32.0); MCHC 33.3 g/dL (32.0-37.0); MCV 97.1 fL (80.0-97.0); Mean Platelet Volume 9.9 fL (9.5-12.2); Monocytes # (A) 0.44 X 10*3/uL (0.20-1.00); Monocytes % (A) 7.5 %; NRBC Per 100 WBC 0 /100 WBCS (0.0-0.0); Neutrophils % (A) 80.7 %; Platelet Count 320 X 10*3/uL (140-440); RBC 3.77 X 10*6/uL (4.10-5.20); RDW 12.5 % (11.5-14.5); WBC 5.83 X 10*3/uL (4.50-10.00)
== END | disposition home or self-care (01) ==
LOC: LABPAT 09:50
PROVIDERS: ATTEND Surgery
DX: Z01.818 Encounter for other preprocedural examination (principal); K40.90 Unilateral inguinal hernia, without obstruction or gangrene, not specified as recurrent
CPT/HCPCS: 85025; 93005

== ENCOUNTER 2022-07-19 11:24 | Day surgery (SDC) | payer OTHER ==
[2022-07-17 12:48] VITALS: BMI 29.2
--- NOTE | 2022-07-19 10:47 | P.GSHP ---
History of Present Illness H&P Date: 07/19/22 Chief Complaint: Left inguinal hernia 42-year-old female seen in June complaining of pain and bulging left groin. No history of prior hernias. Hernia was palpated on exam. Apparently a few weeks later the patient went to the ER with pain. A CAT scan did not show any o ther abnormalities. It in fact did not show a definite hernia at that time. Past Medical History Past Medical History: Cancer, Skin Disorder Additional Past Medical History / Comment(s): migraines, hx cellulitis, hx anemia, hx cervical cancer History of Any Multi-Drug Resistant Organisms: None Reported Past Surgical History: Section, Orthopedic Surgery, Tubal Ligation Additional Past Surgical History / Comment(s): LEEP procedure, left knee arthro scopy, oral surgery Past Anesthesia/Blood Transfusion Reactions: Previous Problems w/ Anesthesia Additional Past Anesthesia/Blood Transfusion Reaction / Comment(s): spinal anesthesia for C/S-"stopped breathing/paralyzed lungs" 2010 Smoking Status: Former smoker - Past Family History Father Family Medical History: Diabetes Mellitus, Hypertension Mother Family Medical History: No Reported History Medications and Allergies Home Medications Medication Instructions Recorded Confirmed Type Acetaminophen Tab [Tylenol] 650 mg PO Q6HR PRN tab 08/20/18 07/17/22 Rx Ibuprofen [Motrin] 600 mg PO Q8HR PRN #20 tab 06/23/22 07/17/22 Rx Allergies Allergy/AdvReac Type Severity Reaction Status Date / Time No Known Allergies Allergy Verified 07/17/22 12:39 Surgical - Exam Physical exam: General: Well-developed, well-nourished HEENT: Normocephalic, sclerae nonicteric Abdomen: Nontender, nondistended, reducible left inguinal hernia Extremities: No edema Neuro: Alert and oriented Assessment and Plan (1) Left inguinal hernia Narrative/Plan: 42-year-old female with reducible left inguinal hernia. We'll proceed with laparoscopic da Angelo assisted repair left inguinal hernia with mesh, possible open, possible bilateral. Risks of bleeding, infection, recurrence, bladder and bowel injury, numbness, nerve injury, conversion to an open procedure were discussed with the patient. The patient understands and wishes to proceed. Status: Acute Code(s): K40.90 - UNIL INGUINAL HERNIA, W/O OBST OR GANGR, NOT SPCF RECUR SNOMED Code(s): 334928153
[~2022-07-19 11:24] MED LIST: ACETAMINOPHEN TAB 500 MG TAB PO PRN; DEXAMETHASONE SOD PHOSPHATE 4 MG/ML 1 ML VIAL IV ONE; HEPARIN SODIUM,PORCINE/PF 5,000 UNIT/0.5 ML SYRINGE SQ PRN; LACTATED RINGERS 1,000 ML IV SCH; MIDAZOLAM 2 MG/2 ML VIAL IV PRN; ONDANSETRON 4 MG/2 ML VIAL IVP ONE; SCOPOLAMINE 1 MG/72 HR PATCH TRANSDERM ONE
[2022-07-19 12:10] LABS: Glucose,Whole Blood 82 mg/dL (70-110)
[2022-07-19] MEDS ORDERED: LIDOCAINE 2% INJ 20 MG/ML (2 ML VIAL) ONE (13:49)
[2022-07-19] MEDS ORDERED: SUCCINYLCHOLINE CHLORIDE 200 MG/10 ML VIAL IV ONE (13:49)
[2022-07-19] MEDS ORDERED: PROPOFOL 10 MG/ML 20 ML VIAL IV ONE (13:49)
[2022-07-19] MEDS ORDERED: MIDAZOLAM 2 MG/2 ML VIAL ONE (13:49)
[2022-07-19] MEDS ORDERED: GLYCOPYRROLATE 0.2 MG/ML 2 ML VIAL ONE (13:49)
[2022-07-19] MEDS ORDERED: NEOSTIGMINE 1 MG/ML 10 ML VIAL ONE (13:49)
[2022-07-19] MEDS ORDERED: fentaNYL (PF) 50 MCG/ML 2 ML AMP ONE (13:49)
[2022-07-19] MEDS ORDERED: LIDOCAINE 4% LTA KIT (4 ML) TOPICAL ONE (13:49)
[2022-07-19] MEDS ORDERED: ROCURONIUM 10 MG/ML (5 ML VIAL) IV ONE (13:49)
[2022-07-19] MEDS ORDERED: BUPIVACAIN-EPI 0.25%-1:200,000 30 ML VIAL SQ ONE (14:20)
[2022-07-19] MEDS: HYDROmorphone 0.5 MG/0.5 ML SYRINGE IVP PRN ×2 (15:40→15:55)
[2022-07-19] MEDS ORDERED: KETOROLAC 15 MG/ML 1 ML VIAL IVP ONE (15:44)
--- NOTE | 2022-07-19 15:49 | P.OP ---
Date of Procedure: 07/19/22 Procedure(s) Performed: PREOPERATIVE DIAGNOSIS: Left inguinal hernia POSTOPERATIVE DIAGNOSIS: Left indirect inguinal hernia PROCEDURE: Laparoscopic da Angelo assisted repair left inguinal hernia with mesh SURGEON: Dr. Becker ANESTHESIA: General OPERATIVE PROCEDURE DETAILS: Patient was placed in the operating table in the supine position. The patient was placed under general anesthesia. The abdomen was prepped and draped in usual sterile fashion. A small curvilinear supraumbilical incision was made. The fascia was retracted anteriorly with [place] forceps. The Veress needle was inserted. The saline drop test was normal. Insufflation took place to 15 mmHg. An 8 mm trocar was placed into the peritoneal cavity. 2 additional 8 mm trochars were placed in the right upper quadrant and left upper quadrant under visualization. The robotic arms were then brought in and docked into place. The fenestrated bipolar was used in the left arm and the laparoscopic jennifer was utilized in the right arm. A 30 8 mm scope was used in the up position. The peritoneal cavity was inspected. The patient had some adhesions between the omentum and the previous scar. The patient's hernia was an indirect hernia on the left-hand side. There was no hernia seen on the right. The peritoneum was incised in a horizontal fashion cephalad to the internal inguinal ring. Following that careful dissection of the preperitoneal space took place. This took place using both electrocautery, sharp dissection but primarily blunt dissection. Visualization of the pubic tubercle and Mayito's ligament took place medially. Full dissection took place laterally as well. The hernia sac was fully dissected. Once we had adequate space the large Pro entry level civil engineer mesh was advanced into the preperitoneal space and flattened out appropriately to cover all potential hernia sites. No sutures were used. The peritoneal defect was then closed using a absorbable 2-0 VLok suture. The hernia sac was incorporated into the peritoneal closure to help prevent future recurrence. The pneumoperitoneum was then evacuated. The skin of all 3 sites was closed using a 4-0 Monocryl stitch. Skin glue was then applied. HERNIA CHARACTERISTICS: TYPE OF MESH USED: Large Pro entry level civil engineer LOCATION OF MESH: Preperitoneal FIXATION: None PREOPERATIVE DISCUSSION ON SMOKING CESSASTION: Yes PREOPERATIVE DISCUSSION ON MORBID OBESITY: Yes PREOPERATIVE DISCUSSION ON APPROPRIATE USE OF NARCOTIC USE: Yes PREOPERATIVE EDUCATION: Multi Modal, Smoking Cessation and Weight Loss with BMI over 35. DISPOSITION: Stable to recovery room
[2022-07-19 16:07] VITALS: TEMP 97.1
[2022-07-19 16:10] VITALS: RESP 16
[2022-07-19 17:19] VITALS: BP 112/66; PULSE 82
[2022-07-19] MEDS ORDERED: ACETAMINOPHEN TAB 325 MG TAB PO SCH (18:00)
[2022-07-19] MEDS ORDERED: IBUPROFEN 600 MG TAB PO SCH (19:00)
== END 2022-07-19 17:30 | disposition home or self-care (01) ==
LOC: OR 11:24
PROVIDERS: ATTEND Surgery
DX: K40.90 Unilateral inguinal hernia, without obstruction or gangrene, not specified as recurrent (principal); G43.909 Migraine, unspecified, not intractable, without status migrainosus; L98.9 Disorder of the skin and subcutaneous tissue, unspecified; Z98.890 Other specified postprocedural states; Z98.891 History of uterine scar from previous surgery; Z98.51 Tubal ligation status; Z85.41 Personal history of malignant neoplasm of cervix uteri; Z87.891 Personal history of nicotine dependence; Z83.3 Family history of diabetes mellitus; Z82.49 Family history of ischemic heart disease and other diseases of the circulatory system; Z79.899 Other long term (current) drug therapy
CPT/HCPCS: 86900; 86901; 86850; 49650; J1100; J0690; J2405; J1885; J1170; J1644; 81025

== ENCOUNTER 2024-06-20 18:04 | Emergency (ER) | payer OTHER ==
[2024-06-20 18:19] VITALS: BP 146/83; PULSE 80; RESP 18; TEMP 98.9
--- NOTE | 2024-06-20 18:20 | ED ---
ENT HPI - General Stated complaint: L sided facial pain Time Seen by Provider: 06/20/24 18:15 Source: patient Mode of arrival: ambulatory Limitations: no limitations - History of Present Illness Initial comments: This is a 44-year-old female presenting with left facial pain x 4 days. Patient endorses cracking left upper tooth several months ago with no issues until just recently. Patient states pain radiates to upper and lower aspect of face/jaw. Describes pain as constant and throbbing (10 out of 10). Patient states she plans on going to the dentist tomorrow but was unable to tolerate the pain any longer. Patient denies pain relief with [id number] Motrin. MD complaint: tooth pain Onset/Timin -: days(s) Location: tooth # 1 - Cracked Severity scale (1-10): 10 Quality: other (Throbbing) Consistency: constant Improves with: NSAID - Related Data Previous Rx's Medication Instructions Recorded Acetaminophen Tab [Tylenol] 650 mg PO Q6HR PRN tab 08/20/18 Ibuprofen [Motrin] 600 mg PO Q8HR PRN #20 tab 06/23/22 oxyCODONE HCL [OxyIR] 5 mg PO Q6H PRN 3 Days #6 tab 07/19/22 Amoxic-Pot Clav 875-125Mg 1 tab PO Q12HR #20 tab 06/20/24 [Augmentin 875-125] Chlorhexidine Gluconate [Periogard] 15 ml MUCOUS MEM DAILY #473 ml 06/20/24 Allergies Allergy/AdvReac Type Severity Reaction Status Date / Time No Known Allergies Allergy Verified 07/19/22 11:57 Review of Systems ROS Statement: Those systems with pertinent positive or pertinent negative responses have been documented in the HPI. ROS Other: All systems not noted in ROS Statement are negative. Past Medical History Past Medical History: Cancer, Skin Disorder Additional Past Medical History / Comment(s): migraines, hx cellulitis, hx anemia, hx cervical cancer History of Any Multi-Drug Resistant Organisms: None Reported Past Surgical History: Section, Orthopedic Surgery, Tubal Ligation Additional Past Surgical History / Comment(s): HUIP procedure, left knee arthroscopy, oral surgery Past Anesthesia/Blood Transfusion Reactions: Previous Problems w/ Anesthesia Additional Past Anesthesia/Blood Transfusion Reaction / Comment(s): spinal anesthesia for C/S-"stopped breathing/paralyzed lungs" 2010 Smoking Status: Former smoker - Past Family History Father Family Medical History: Diabetes Mellitus, Hypertension Mother Family Medical History: No Reported History General Exam - General Exam Comments Initial Comments: Visual Physical Exam Vital signs reviewed General: Well-appearing, nontoxic, no acute distress. Head: Normocephalic, atraumatic. Mild left facial edema noted without overlying erythema Eyes: PERRLA, EOMI ENT: Airway patent Chest: Nonlabored breathing Skin: No visual rash, normal skin tone Neuro: Alert and oriented 3 Musculoskeletal: No gross abnormalities General appearance: alert, in no apparent distress Head exam: Present: atraumatic, normocephalic, normal inspection Eye exam: Present: normal appearance, PERRL, EOMI, other (Left upper second premolar is mildly cracked with tenderness upon palpation with tongue depressor. Negative facial tenderness or overlying erythema. Patient noted to have several missing teeth). Absent: scleral icterus, conjunctival injection, periorbital swelling ENT exam: Present: normal exam, mucous membranes moist Neck exam: Present: normal inspection. Absent: tenderness, meningismus, lymphadenopathy Respiratory exam: Present: normal lung sounds bilaterally. Absent: respiratory distress, wheezes, rales, rhonchi, stridor Cardiovascular Exam: Present: regular rate, normal rhythm, normal heart sounds. Absent: systolic murmur, diastolic murmur, rubs, gallop, clicks GI/Abdominal exam: Present: soft, normal bowel sounds. Absent: distended, tenderness, guarding, rebound, rigid Extremities exam: Present: normal inspection, full ROM, normal capillary refill. Absent: tenderness, pedal edema, joint swelling, calf tenderness Back exam: Present: normal inspection Neurological exam: Present: alert, oriented X3, CN II-XII intact Psychiatric exam: Present: normal affect, normal mood Skin exam: Present: warm, dry, intact, normal color. Absent: rash Course Vital Signs 06/20/24 18:17 Temperature 98.9 F Pulse Rate 80 Respiratory 18 Rate Blood Pressure 146/83 O2 Sat by Pulse 100 Oximetry Medical Decision Making - Medical Decision Making I completed the quick note portion of this chart signed ANGE Gallegos Was pt. sent in by a medical professional or institution ([facility], [employer], urgent care, hospital, or longterm...) When possible be specific @ -[No] Did you speak to anyone other than the patient for history (EMS, parent, family, police, friend...)? What history was obtained from this source @ -[No] Did you review nursing and triage notes (agree or disagree)? Why? @ -[I reviewed and agree with nursing and triage notes] Were old charts reviewed (outside hosp., previous admission, EMS record, old EKG, old radiological studies, urgent care reports/EKG's, longterm records)? Report findings @ -[No old charts were reviewed] Differential Diagnosis (chest pain, altered mental status, abdominal pain women, abdominal pain men, vaginal bleeding, weakness, fever, dyspnea, syncope, headache, dizziness, GI bleed, back pain, seizure, CVA, palpatations, mental health, musculoskeletal)? @ -Periapical abscess, Darnell's angina, damaged dentin, dental trevin, ANUG EKG interpreted by me (3pts min.). @ -Not done X-rays interpreted by me (1pt min.). @ -Initial x-ray shows left upper canine/premolar damage CT interpreted by me (1pt min.). @ -[None done] U/S interpreted by me (1pt. min.). @ -[None done] What testing was considered but not performed or refused? (CT, X-rays, U/S, labs)? Why? @ -[None] What meds were considered but not given or refused? Why? @ -[None] Did you discuss the management of the patient with other professionals (professionals i.e. [facility]ree, [employer], lab, RT, psych nurse, nephrology social worker, buhr dresser, teacher, safety patrol officer, casework supervisor)? Give summary @ -[No] Was smoking cessation discussed for >3mins.? @ -[No] Was critical care preformed (if so, how long)? @ -[No] Were there social determinants of health that impacted care today? How? (Homelessness, low income, unemployed, alcoholism, drug addiction, transportation, low edu. Level, literacy, decrease access to med. care, detention, rehab)? @ -[No] Was there de-escalation of care discussed even if they declined (Discuss DNR or withdrawal of care, Hospice)? DNR status @ -[No] What co-morbidities impacted this encounter? (DM, HTN, Smoking, COPD, CAD, Cancer, CVA, ARF, Chemo, Hep., AIDS, mental health diagnosis, sleep apnea, morbid obesity)? @ -[None] Was patient admitted / discharged? Hospital course, mention meds given and route, prescriptions, significant lab abnormalities, going to OR and other pertinent info. @ -Discharge. Facial x-ray shows damage to teeth. Toradol IM given for pain. Augmentin and chlorhexidine mouthwash sent to pharmacy. Patient sent home with T3 starter pack. Undiagnosed new problem with uncertain prognosis? @ -[No] Drug Therapy requiring intensive monitoring for toxicity (Heparin, Nitro, Insulin, Cardizem)? @ -[No] Were any procedures done? @ -[No] Diagnosis/symptom? @ -Periapical abscess Acute, or Chronic, or Acute on Chronic? @ -Acute Uncomplicated (without systemic symptoms) or Complicated (systemic symptoms)? @ -Uncomplicated Side effects of treatment? @ -[No] Exacerbation, Progression, or Severe Exacerbation? @ -[No] Poses a threat to life or bodily function? How? (Chest pain, [place], [place], pneumonia, PE, COPD, DKA, ARF, appy, cholecystitis, CVA, Diverticulitis, Homicidal, Suicidal, threat to staff... and all critical care pts) @ -[No] Disposition Clinical Impression: Dental abscess, Fracture of tooth Disposition: HOME SELF-CARE Condition: Good Instructions (If sedation given, give patient instructions): Dental Abscess (ED) Additional Instructions: Swish with warm salt water and apply cold warm compresses. Advised follow-up with dentist. Prescriptions: Amoxic-Pot Clav 875-125Mg [Augmentin 875-125] 1 tab PO Q12HR #20 tab Chlorhexidine Gluconate [Periogard] 15 ml MUCOUS MEM DAILY #473 ml Is patient prescribed a controlled substance at d/c from ED?: No Referrals: Bert Lomeli DO [Primary Care Provider] - 1-2 days Time of Disposition: 19:04
--- NOTE | 2024-06-20 18:54 | XR ---
EXAMINATION TYPE: XR facial bones limited DATE OF EXAM: 06/20/2024 6:35 PM CLINICAL INDICATION: Female, 44 years old with history of Left facial pain, cracked left tooth; [facility] COMPARISON: None TECHNIQUE: Multiple views of the facial bones. Frontal, lateral and tilted frontal views. FINDINGS: The soft tissues are within normal limits. Fracture of the left canine tooth as seen on lateral view . No other fractures identified. The paranasal sinuses are well aerated. Dental fillings noted throug hout the teeth. IMPRESSION: Fracture of the tooth as given in the provided history. [facility], , 06/20/2024 6:52 PM
[2024-06-20] MEDS: KETOROLAC 15 MG/ML 1 ML VIAL IM STA (18:58)
[2024-06-20] MEDS: ACET/COD 300 MG/30 MG STARTER PACK 6 TAB BTL PO STA (19:15)
[2024-06-20] MEDS: AMOXIC-POT CLAV 875-125MG 1 EACH TAB PO STA (19:16)
== END 2024-06-20 19:19 | disposition home or self-care (01) ==
LOC: EC 18:04
CPT/HCPCS: 70140; 96372; 99283